=== PATIENT | female | born 1965 | race Caucasian/White ===

== ENCOUNTER 2017-06-27 11:31 | Observation (INO) | payer MEDICARE ==
[~2017-06-27] VITALS: Ht 162.6 cm; Wt 79.9 kg
[~2017-06-27 11:31] MED LIST: AMBIEN10 MG PO; AMBIEN5 MG PO; AMLODIPINE BESY10 MG PO; ASPIR 8181 MG; ASPIRIN ENTERI325 MG PO; CLONAZEPAM1 MG PO; CLONIDINE HCL0.2 MG PO; COGENTIN1 MG/1 ML PO; DOXEPIN HCL25 MG PO; FLOMAX0.4 MG PO; HYDROCHLOROTHIA25 MG PO; IBUPROFEN200 MG PO; LEVAQUIN500 MG PO; LEVOTHYROXINE100 MC1 PO; LEVOTHYROXINE100 MCG PO; LIPITOR20 MG PO; LISINOPRIL10 MG PO; MACROBID 100 M100 MG PO; MELOXICAM7.5 MG PO; MOBIC7.5 MG PO; NORCO 10-325 T1 EACH PO; NORCO 10MG-325MG1 EA PO; OMEPRAZOLE40 MG PO; OXCARBAZEPINE150 MG PO; OXCARBAZEPINE300 MG PO; PERI-COLACE TA1 EACH PO; PHENERGAN25 MG/1 M1 PO; POTASSIUM CHLO20 ME1 PO; PREVACID15 M1 PO; PROMETHAZINE HC25 M1 PO; QUETIAPINE FUM100 MG PO; SEROQUEL25 MG PO; SERTRALINE HCL100 MG PO; TEMAZEPAM30 MG PO; TOPROL XL50 MG PO; TYLENOL # 31 EA; TYLENOL # 31 EA PO; TYLENOL WITH C1 EACH PO; ULTRAM 50MG50 MG PO; ULTRAM50 MG PO; ZOFRAN ODT4 MG PO; ZOLOFT100 MG PO
--- OUTSIDE RECORDS SUMMARY | 2017-06-27 11:34 | XMS REPORT ---
Author Author [facility] Address Unknown Phone Unavailable Care Team Providers Care Sql Server Developer Name Role Phone LAURA SHEPHERD Unavailable Unavailable Problems This patient has no known problems. Allergies, Adverse Reactions, Alerts This patient has no known allergies or adverse reactions. Medications This patient has no known medications. Results Test Description Test Time Test Comments Text Results Atomic Results Result Comments CT CHEST W [place] [address] Patient Name: RYLAND BRUMFIELD MR #: [id number] : 1965 Age/Sex: 52/F Req #: [id number] [facility] Physician: Ordered by: LAUAR SHEPHERD MD Report #: [id number] Location: ER Room/Bed: Procedure: [id number] CT/CT CHEST W Exam Date: 05/07/17 Exam Time: 1615 REPORT STATUS: Signed PROCEDURE: CT CHEST WITH CONTRAST COMPARISON: None. INDICATIONS: Chest pain TECHNIQUE: Pulmonary artery angiogram protocol CT chest after administration of 70 mL Isovue-370 intravenous contrast. Multiplanar reformatted images. DLP: 538.25 FINDINGS: Lungs : Trace dependent right lower lobe interstitial scar or subsegmental atelectasis. Trace bilateral interlobular septal thickening. 7 mm right lower lobe granuloma. Airways: Normal. Pleura: Normal. Lymph nodes: Normal Pulmonary arteries: No filling defects. Normal size. Pulmonary diameter 2.6 cm. Thoracic aorta and great vessels: Normal caliber. Heart and pericardium: 4 chamber cardiomegaly. 2-lead pacemaker of the left hemithorax extending to the right atrial appendage and ventricle. Subdiaphragmatic organs: Grossly unremarkable Skeleton: Intact. Soft tissues : Normal CONCLUSION: 1. No pulmonary embolism. 2. Cardiomegaly. Trace bilateral interstitial thickening suspicious for early pulmonary edema. Dictated by: Radames Corcoran M.D. on 05/07/2017 at 16:41 Electronically approved by: Radames Corcoran M.D. on 05/07/2017 at 16 :41 Dictated By: RADAMES CORCORAN MD 40 Transcribed By: TORRI on 05/07/171640 COPY TO: LAURA SHEPHERD MD CHEST SINGLE (PORTABLE) [place] [address] Patient Name: RYLAND BRUMFIELD MR #: [id number] : 1965 Age/Sex: 52/F Req #: [id number] Adm Physician: Ordered by: LAURA SHEPHERD MD Report #: [id number] Location: ER Room/Bed: Procedure: [id number] DX/CHEST SINGLE (PORTABLE) Exam Date: 05/07/17 Exam Time: 1425 REPORT STATUS: Signed PROCEDURE: CHEST SINGLE (PORTABLE) TECHNIQUE: Portable AP chest INDICATION: Left- sided chest pain COMPARISON: [facility], DX, CHEST 2 VIEWS, , 12:25. FINDINGS: Lungs are clear and symmetrically inflated. No pleural effusions. Upper limits of normal heart size for technique. 2-lead pacemaker of the left hemithorax; leads intact. Intact skeleton. CONCLUSION: No acute abnormality or interval change from October 2016. Dictated by: Radames Corcoran M.D. on 05/07/2017 at 14:41 Electronically approved by: Radames Corcoran M.D. on 2016 at 14:41 Dictated By: RADAMES CORCORAN MD 144 Transcribed By: TORRI on 144 COPY TO: LAURA SHEPHERD MD
[2017-06-27] MEDS ORDERED: ASPIRIN 81 MG CHEW TAB PO ONE ×2 (12:00→17:00)
[2017-06-27] MEDS ORDERED: HYDROCODONE/APAP 7.5MG-325MG 1 EA TAB PO PRN (12:00)
--- NOTE | 2017-06-27 12:46 | Diagnostic Imaging Report ---
PROCEDURE: X-RAY LUMBAR SPINE, TWO VIEWS COMPARISON: Abdominal CT 11/15/2016 INDICATIONS: FALL, BACK PAIN FINDINGS: The lumbar spine is in anatomic alignment without evidence of fracture, spondylolisthesis, or spondylolysis. Vertebral body heights are maintained. Mild disc space narrowing at L2-L3 The paraspinal soft tissues are normal. Multiple surgical clips in the pelvis. A punctate calcification overlying the right upper quadrant may correspond to a right lower lobe calcified granuloma CT 11/15/2016. CONCLUSION: No acute osseous abnormalities. Dictated by: Alfonso Wallace M.D. on 06/27/2017 at 12:56 Electronically approved by: Alfonso Wallace M.D. on 06/27/2017 at 12:56
--- NOTE | 2017-06-27 12:49 | Diagnostic Imaging Report ---
PROCEDURE:X-RAY PELVIS, AP VIEW COMPARISON:Abdominal CT 11/15/2016 INDICATIONS:FALL, HIP AND LOWER BACK PAIN FINDINGS: There are no acute displaced fractures, dislocations, lytic or blastic lesions. Mild degenerative changes of both hips. The bones are well-mineralized. Surgical clips in the pelvis. The soft-tissues are unremarkable. CONCLUSION: No acute radiographic abnormalities. Dictated by: Alfonso Wallace M.D. on 06/27/2017 at 12:58 Electronically approved by: Alfonso Wallace M.D. on 06/27/2017 at 12:58
--- NOTE | 2017-06-27 12:51 | Diagnostic Imaging Report ---
PROCEDURE:CHEST SINGLE (PORTABLE) TECHNIQUE:Portable AP chest INDICATION:Fall; chest pain; hypertension and dizziness. COMPARISON:None. FINDINGS: Lungs are clear. No pleural effusions. Normal heart size, mediastinal contour and pulmonary vasculature. Intact skeleton. 2-lead pacemaker left hemithorax; leads intact. CONCLUSION: No acute abnormality. Dictated by: Dio Corcoran M.D. on 06/27/2017 at 13:00 Electronically approved by: Dio Corcoran M.D. on 06/27/2017 at 13:00
[2017-06-27 12:52] LABS: BILIRUBIN,URINE NEGATIVE (NEGATIVE); CLARITY,URINE CLEAR (CLEAR); COLOR,URINE YELLOW (YELLOW); KETONES,URINE NEGATIVE (NEGATIVE); LEUKOCYTE ESTERASE ,URINE TRACE (NEGATIVE); NITRITE,URINE NEGATIVE (NEGATIVE); PROTEIN,URINE DIPSTICK NEGATIVE (NEGATIVE); URINE UROBILINOGEN 0.2 mg/dL (0.2 - 1)
[2017-06-27 13:12] LABS: BACTERIA,URINE MODERATE /HPF; EPITHELIAL CELLS,URINE FEW /LPF
[2017-06-27 14:01] LABS: BASOPHILS % 0.3 % (0.0-1.0); EOSINOPHILS # (AUTO) 0.2 (0.0-0.4); EOSINOPHILS % 1.5 % (0.0-6.0); HEMATOCRIT 41.2 % (34.2-44.1); HEMOGLOBIN 13.9 g/dL (12.0-16.0); LYMPHOCYTES # (AUTO) 2.3 (1.0-3.2); MEAN CORPUSCULAR HGB CONC 33.7 g/dL (31-35); MONOCYTES # (AUTO) 0.3 (0.2-0.8); MONOCYTES % 2.3 % (4.4-11.3); NEUTROPHILS # (AUTO) 8.8 (2.1-6.9); NEUTROPHILS % 75.6 % (38.7-80.0); PLATELET COUNT 288 x10e3/uL (140-360); RED BLOOD COUNT 4.48 x10e6/uL (3.6-5.1); RED CELL DISTRIBUTION WIDTH 13.7 % (11.7-14.4)
[2017-06-27 14:13] LABS: INR 0.89; PROTHROMBIN TIME 12.5 seconds (11.9-14.5)
[2017-06-27 14:14] LABS: PARTIAL THROMBOPLASTIN TIME 31.5 seconds (23.8-35.5)
[2017-06-27 14:23] LABS: ALANINE AMINOTRANSFERASE 10 IU/L (0-55); ALKALINE PHOSPHATASE 119 IU/L (40-150); ANION GAP 13.1 mmol/L (8-16); BLOOD UREA NITROGEN 14 mg/dL (7-26); BUN/CREATININE RATIO 15 (6-25); CALCIUM 9.4 mg/dL (8.4-10.2); CARBON DIOXIDE 26 mmol/L (22-29); CHLORIDE 105 mmol/L (98-107); CREATINE KINASE 54 IU/L (29-168); CREATININE, SERUM 0.92 mg/dL (0.57-1.11); EST GLOMERULAR FILTRATION RATE > 60 ML/MIN (60-); GLUCOSE 97 mg/dL (74-118); POTASSIUM 3.1 mmol/L (3.5-5.1); SODIUM 141 mmol/L (136-145)
[2017-06-27] MEDS ORDERED: MORPHINE SULFATE 2 MG/ML SYR IV STA (15:37)
[2017-06-27] MEDS ORDERED: NITROGLYCERIN 0.4 MG SUBL SL PRN (17:00)
[2017-06-27] MEDS: MORPHINE SULFATE 2 MG/ML SYR IV PRN ×2 (17:56→21:00)
[2017-06-27] MEDS: FAMOTIDINE 20 MG/2 ML VIAL IV SCH ×2 (17:57→20:43)
[2017-06-27] MEDS ORDERED: POTASSIUM CHLORIDE 20 MEQ TAB CR PO STA (18:13)
[2017-06-27 20:52] VITALS: BP 142/90
[2017-06-27 21:12] VITALS: BP 142/90
[2017-06-27 21:27] LABS: CREATINE KINASE MB 0.8 ng/mL (0.00-5.00)
[2017-06-27 21:36] VITALS: BP 142/90
[2017-06-28] VITALS (10 sets, daily range): BP systolic 128–185; BP diastolic 65–121
[2017-06-28] MEDS: MORPHINE SULFATE 2 MG/ML SYR IV PRN ×6 (00:06→18:27)
--- NOTE | 2017-06-28 02:11 | Consultation ---
DATE OF CONSULTATION: June 27, 2017 CARDIOLOGY CONSULTATION REASON FOR CONSULTATION: Lightheadedness. HISTORY OF PRESENT ILLNESS: This is a 52-year-old woman with a history of hypertension, hyperlipidemia, atrial fibrillation, status post permanent pacemaker placement, who presented with complaints of chest pain and lightheadedness. She reports that she began having chest pain early this morning. The pain was described as a vice-like sensation that was 7/10 in severity associated with shortness of breath, nausea and palpitations. The pain lasted hours. There was no radiation. She denied any edema, orthopnea or PND. On admission this morning, she states that she was walking down the stairs and she began to feel lightheaded with a fluttering sensation in her chest. She subsequently fell down the stairs. She denies any change in her oral intake, although she does endorse she had a bad episode of diarrhea a few days prior. REVIEW OF SYSTEMS: Negative except as per HPI. PAST MEDICAL HISTORY: Hypertension, hyperlipidemia, atrial fibrillation with permanent pacemaker placement, [employer], kidney stones. PAST SURGICAL HISTORY: Hysterectomy, right ureter reconstruction, appendectomy, right ankle surgery, adenoidectomy. ALLERGIES: PLEASE SEE MAR. MEDICATIONS: See medication list. SOCIAL HISTORY: Prior smoker. No alcohol or illicit drugs. FAMILY HISTORY: Noncontributory. PHYSICAL EXAMINATION VITALS: Temperature 98.2 degrees, pulse 64, respiratory rate 18, blood pressure 125/87, and oxygen saturation 99% on room air. GENERAL: This is a well-developed, well-nourished woman in no acute distress. HEENT: Normocephalic and atraumatic. NECK: Supple. No thyromegaly or cervical lymphadenopathy. No carotid bruits. LUNGS: Clear to auscultation bilaterally. No wheezes or crackles. CARDIOVASCULAR: Normal rate and regular rhythm. Systolic murmur. Normal S1 and S2. ABDOMEN: Soft and nontender. EXTREMITIES: No edema. NEURO: Nonfocal exam. LABS: WBC 11.67, hemoglobin 13.9, hematocrit 41.2, and platelets 288,000. Sodium 141, potassium 3.1, chloride 105, CO2 26, BUN 14, creatinine 0.92. Troponin 0.001. BNP 26.3. Chest x-ray with no acute abnormality. X-ray of the pelvis with no acute radiographic abnormality. Lumbar spine with no acute osseous abnormalities. EKG is normal sinus rhythm with S/T and T-wave abnormalities. Consider inferolateral ischemia. IMPRESSION 1. Chest pain. 2. Lightheadedness. 3. Sick sinus syndrome, status post permanent pacemaker. 4. History of atrial fibrillation. 5. Hypertension. 6. Hyperlipidemia. 7. Hypothyroidism. 8. Bipolar disorder. RECOMMENDATIONS: Trend cardiac enzymes. Check orthostatic vitals. We will have the pacemaker interrogated. Patient was seen in the office 2 weeks ago, and complained of chest pain at that time. However, due to the weather she was unable to make it for stress test. Given fall, we will plan for a nuclear stress test in the morning. Get device interrogated. Thank you for this consult. We will continue to follow. Job#: [id number] CHUY
--- NOTE | 2017-06-28 02:26 | Consultation ---
DATE OF CONSULTATION: June 27, 2017 No dictation, length 00:21. Job#: [id number] JONAS
[2017-06-28] MEDS: FAMOTIDINE 20 MG/2 ML VIAL IV SCH ×2 (04:30→16:11)
[2017-06-28] MEDS ORDERED: DILTIAZEM 24HR120 M1 (04:43)
[2017-06-28] MEDS ORDERED: FUROSEMIDE40 MG PO (04:43)
[2017-06-28 07:09] LABS: CHOL/HDL RATIO 7.8 (3.0-3.6); CHOLESTEROL 243 MD/DL (0-199); CREATINE KINASE 42 IU/L (29-168); HDL CHOLESTEROL 31 MG/DL (40-60); LDL CHOLESTEROL 169 MG/DL (60-130); TRIGLYCERIDES 216 MG/DL (0-149)
[2017-06-28] MEDS: ASPIRIN 325 MG TAB EC PO SCH (08:09)
[2017-06-28] MEDS ORDERED: REGADENOSON 0.4 MG/5 ML SYR IV ONE (12:01)
--- NOTE | 2017-06-28 12:53 | Progress Note ---
DATE: June 28, 2017 CARDIOLOGY PROGRESS NOTE SUBJECTIVE: Patient reports she had an episode of chest pain earlier today. Denies shortness of breath. She was seen for a nuclear stress test. OBJECTIVE VITALS: Temperature 97.6 degrees, pulse 79, respiratory rate 18, blood pressure 185/117, and oxygen saturation 96% on room air. GENERAL: Awake, alert, in no acute distress. LUNGS: Clear to auscultation bilaterally. No wheezes or crackles. CARDIOVASCULAR: Normal rate and regular rhythm. Systolic murmur. Normal S1 and S2. ABDOMEN: Soft and nontender. EXTREMITIES: No edema. CARDIAC MEDICATIONS: Aspirin 325 mg p.o. daily. TELEMETRY: Normal sinus rhythm. LABS: Troponin less than 0.001. Cholesterol 243, triglycerides 216, LDL 169, HDL 31. IMPRESSION 1. Chest pain. 2. Lightheadedness. 3. Sick sinus syndrome, status post permanent pacemaker placement. 4. History of atrial fibrillation. 5. Hypertension. 6. Hyperlipidemia. 7. Hypothyroidism. 8. Bipolar disorder. RECOMMENDATIONS: The patient has ruled out for myocardial infarction. Orthostatic vitals were negative. Awaiting pacemaker interrogation. Further recommendations pending stress test results. Thank you for this consult. We will continue to follow. Job#: [id number]
[2017-06-28] MEDS ORDERED: ONDANSETRON HCL INJ 2 MG/ML VIAL ONE (13:40)
[2017-06-28] MEDS: CLONIDINE HCL 0.2 MG TAB PO SCH ×2 (15:26→20:46)
[2017-06-28] MEDS: METOCLOPRAMIDE HCL 10 MG TAB PO SCH ×2 (18:27→20:46)
[2017-06-28] MEDS: CLONAZEPAM 1 MG TAB PO SCH (18:27)
[2017-06-28] MEDS: PANTOPRAZOLE SOD 40 MG TABEC PO SCH (18:27)
--- NOTE | 2017-06-28 19:23 | Cardiology Report ---
DATE OF STUDY: June 28, 2017 PROCEDURE TITLE Rest stress single isotope SPECT imaging with pharmacologic stress and gated SPECT imaging. INDICATIONS: Chest pain. PROCEDURE: Formal cardiac stress testing was performed with regadenoson per protocol. The heart rate was 66 beats per minute at baseline and increased to 154 beats per minute during the regadenoson infusion. The rest blood pressure was 172/111 and decreased to 163/102 mmHg which is a normal response. The patient did not develop any significant cardiac symptoms, although she did have significant nausea. The resting electrocardiogram demonstrated normal sinus rhythm with nonspecific ST abnormalities. There were [address] segment depressions in 2, 3, AVF, V4, V5 and V6. Myocardial perfusion imaging was performed at rest following the injection of 10.6 mCi of tetrofosmin. At peak pharmacologic effect, the patient was injected with 31.2 mCi of tetrofosmin. Gated post stress tomographic imaging was performed. FINDINGS: Overall quality of this study is fair. Attenuation artifact was absent. Left ventricular cavity is noted to be normal size on the rest and stress studies. SPECT images demonstrate homogenous tracer distribution throughout the myocardium. Gated SPECT imaging revealed normal myocardial thickening and wall motion. Left ventricular ejection fraction was calculated to be 64%. IMPRESSION: Myocardial perfusion imaging is normal. Overall left ventricular systolic motion was normal without regional wall motion abnormalities. Job#: [id number] GH
--- NOTE | 2017-06-28 19:48 | History and Physical ---
PRIMARY CARE PROVIDER: Dr. Deondre Meehan. CHIEF COMPLAINT: Chest pain. HISTORY OF PRESENT ILLNESS: Ms. Stiles is a 52-year-old lady complaining of anterior chest pain. It is more positional and pleuritic in nature. Has been going on for 24 hours or so. REVIEW OF SYSTEMS: She denies fever, chills or weight loss. Denies sinus congestion or sore throat. She has atypical chest pain as noted without diaphoresis. She denies shortness of breath, wheezing or cough. She denies abdominal pain, nausea, vomiting or melena. Denies dysuria or flank pain. She denies rash or pruritus. Denies joint pain or swelling. She denies bleeding or bruising. She denies headache, vertigo or loss of consciousness. She denies depression, agitation, homicidal or suicidal ideation. PAST MEDICAL HISTORY: Significant for longstanding hypertension. She has had paroxysmal atrial fibrillation and sick sinus syndrome in the past and has a permanent pacemaker placed about a year ago. She has hyperlipidemia and history of hepatitis C. She has hypothyroidism and bipolar disorder. REGULAR MEDICATIONS: Metoprolol XL 200 mg daily. Lasix 40 mg daily. Diltiazem 120 mg daily. Clonidine 0.2 mg 3 times a day. Clonazepam 1 mg twice a day. Lipitor 10 mg at bedtime. Temazepam 30 mg at bedtime. Zoloft 100 mg daily. Omeprazole 40 mg q.a.m. Levothyroxine 100 mcg daily. Aspirin 325 mg daily. PAST SURGICAL HISTORY: She has a history of hysterectomy. She has had reimplanting of the right ureter. She has a history of kidney stones. She had an appendectomy and she had a pacemaker placement, and she has also had open reduction and internal fixation of right ankle. FAMILY HISTORY: Remarkable for hypertension. SOCIAL HISTORY: The patient is . Malay is her primary language. She does not smoke, drink or use illegal drugs. She is generally independently functioning. PHYSICAL EXAM: PSYCHIATRIC: She is alert and oriented times 3 with normal mood and affect. CONSTITUTIONAL: She has a normal body habitus. Is in no acute distress. VITAL SIGNS: Blood pressure 167/99. Pulse 83 and regular. Respiratory rate 20. O2 sat 96%. Temperature 98.6. HEENT: Head is atraumatic. Eyes are anicteric with clear conjunctivae. Ears and nares are without erythema or discharge. Oropharynx is clear. NECK: Is supple with no mass or thyromegaly. LYMPHATIC SYSTEM: She has no palpable cervical, axillary or inguinal adenopathy. CARDIOVASCULAR: Her heart has a regular rate and rhythm without murmur or extra heart sounds. No carotid bruit. She has no peripheral edema. Has palpable dorsal pedal pulses. RESPIRATORY: Lungs are clear to auscultation and percussion with normal respiratory effort. GASTROINTESTINAL: Abdomen is soft without organomegaly, masses or tenderness. She has normal bowel sounds present. CUTANEOUS: Her skin is warm and dry to touch with no rash or skin breakdown. MUSCULOSKELETAL: Joints are normal alignment without erythema or swelling. No calf tenderness. NEUROLOGIC: Exam is nonfocal with intact cranial nerves and no motor or sensory deficits. DIAGNOSTIC STUDIES: Chest x-ray shows no acute disease. Pelvis x-ray no acute disease. Lumbar spine shows no acute disease. EKG shows normal sinus rhythm with some inferolateral T wave changes that are nonspecific. Her BNP is 26.3. Troponin is less than 0.001, less than 0.001 then less than 0.001. Cholesterol 243. Triglycerides 216. HDL 31. LDL 169. Chemistry shows normal electrolytes except potassium 3.1. CO2 26. Creatinine 0.92. BUN 14. Glucose 97. Transaminases, bilirubin and alk phos are normal. CBC shows a white count 11.6 with 76% neutrophils, 20% lymphocytes, 2% monocytes. Hemoglobin 13.9, hematocrit 41.2 and platelet count 288,000. Coags are normal. IMPRESSION AND PLAN 1. Chest pain, rule out acute coronary syndrome. Myocardial infarction has been ruled out with serial cardiac enzymes that are negative times 3. The patient had a stress test today and the results are pending. 2. History of paroxysmal atrial fibrillation. The patient appears to be in sinus rhythm at the moment on her EKG. Her pacemaker will be interrogated to determine if she has been having any arrhythmias. Will defer the use of anticoagulation to cardiology. 3. Bipolar disorder. Will continue her clonidine and Zoloft. 4. For prophylaxis the patient will be on Protonix and Reglan for GI prophylaxis and gastroesophageal reflux disease for which she suffers a lot and she is on SCDs for DVT prophylaxis. Job#: [id number]
[2017-06-28] MEDS ORDERED: ATORVASTATIN 10 MG TAB PO SCH (21:00)
[2017-06-29] VITALS: BP 97/58
[2017-06-29] MEDS: MORPHINE SULFATE 2 MG/ML SYR IV PRN ×4 (00:10→14:11)
[2017-06-29 06:34] LABS: BASOPHILS % 0.4 % (0.0-1.0); EOSINOPHILS # (AUTO) 0.2 (0.0-0.4); EOSINOPHILS % 1.5 % (0.0-6.0); HEMATOCRIT 39.2 % (34.2-44.1); HEMOGLOBIN 12.8 g/dL (12.0-16.0); LYMPHOCYTES # (AUTO) 4.8 (1.0-3.2); LYMPHOCYTES % 42.7 % (18.0-39.1); MEAN CORPUSCULAR HEMOGLOBIN 30.6 pg (28-32); MEAN CORPUSCULAR HGB CONC 32.7 g/dL (31-35); MEAN CORPUSCULAR VOLUME 93.8 fL (81-99); MONOCYTES # (AUTO) 0.7 (0.2-0.8); MONOCYTES % 6.6 % (4.4-11.3); NEUTROPHILS # (AUTO) 5.5 (2.1-6.9); NEUTROPHILS % 48.5 % (38.7-80.0); PLATELET COUNT 296 x10e3/uL (140-360); RED BLOOD COUNT 4.18 x10e6/uL (3.6-5.1)
[2017-06-29 06:50] LABS: BLOOD UREA NITROGEN 11 mg/dL (7-26); BUN/CREATININE RATIO 13 (6-25); CALCIUM 9.1 mg/dL (8.4-10.2); CARBON DIOXIDE 29 mmol/L (22-29); CHLORIDE 106 mmol/L (98-107); CREATININE, SERUM 0.86 mg/dL (0.57-1.11); EST GLOMERULAR FILTRATION RATE > 60 ML/MIN (60-); GLUCOSE 91 mg/dL (74-118); MAGNESIUM 1.9 MG/DL (1.3-2.1); SODIUM 143 mmol/L (136-145)
[2017-06-29 07:12] LABS: THYROID STIMULATING HORMONE 4.871 uIU/mL (0.350-4.940)
[2017-06-29] MEDS ORDERED: LEVOTHYROXINE SODIUM 100 MCG TAB PO SCH (07:30)
[2017-06-29 08:01] VITALS: BP 97/58
[2017-06-29 08:33] VITALS: BP 96/57
[2017-06-29] MEDS: METOCLOPRAMIDE HCL 10 MG TAB PO SCH ×2 (08:52→11:55)
[2017-06-29] MEDS: PANTOPRAZOLE SOD 40 MG TABEC PO SCH (08:52)
[2017-06-29] MEDS: ASPIRIN 325 MG TAB EC PO SCH (08:53)
[2017-06-29] MEDS: CLONIDINE HCL 0.2 MG TAB PO SCH (08:53)
[2017-06-29] MEDS: METOPROLOL SUCCINATE 50 MG TAB XL PO SCH ×2 (08:54→11:07)
[2017-06-29] MEDS: CLONAZEPAM 1 MG TAB PO SCH ×2 (08:54→09:00)
[2017-06-29] MEDS ORDERED: SERTRALINE HCL 100 MG TAB PO SCH (09:00)
[2017-06-29] MEDS ORDERED: AMIODARONE HCL 200 MG TAB PO SCH (09:00)
[2017-06-29] MEDS ORDERED: FUROSEMIDE 40 MG TAB PO SCH (09:00)
[2017-06-29] MEDS ORDERED: DILTIAZEM HCL 120 MG CAP CD PO SCH (09:00)
[2017-06-29] MEDS ORDERED: XARELTO10 MG PO (10:23)
[2017-06-29] MEDS ORDERED: AMIODARONE HCL200 MG PO (10:23)
[2017-06-29] MEDS ORDERED: METOCLOPRAMIDE10 MG PO (10:23)
[2017-06-29] MEDS ORDERED: CYCLOBENZAPRINE5 MG PO (10:28)
[2017-06-29] MEDS ORDERED: METOPROLOL TARTRATE INJ 1 MG/ML VIAL IV ONE (11:15)
[2017-06-29 11:53] VITALS: BP 112/74
--- NOTE | 2017-06-29 15:52 | Progress Note ---
DATE: June 29, 2017 CARDIOLOGY PROGRESS NOTE SUBJECTIVE: Patient denies chest pain or shortness of breath. She reports she had palpitations earlier today. OBJECTIVE VITALS: Temperature 99.5 degrees, pulse 115, respiratory rate 16, blood pressure 112/74, and oxygen saturation 95%. GENERAL: Awake, alert, in no acute distress. LUNGS: Clear to auscultation bilaterally. No wheezes or crackles. CARDIOVASCULAR: Normal rate, regular rhythm. Systolic murmur. Normal S1, S2. ABDOMEN: Soft and nontender. EXTREMITIES: No edema. CARDIAC MEDICATIONS 1. Metoprolol succinate 200 mg p.o. daily. 2. Diltiazem 120 mg p.o. daily. 3. Amiodarone 200 mg p.o. b.i.d. 4. Furosemide 40 mg p.o. daily. 5. Aspirin 325 mg p.o. q.a.m. 6. Levothyroxine 100 mcg p.o. daily. 7. Atorvastatin 10 mg p.o. q.h.s. 8. Rivaroxaban 20 mg p.o. daily. LABORATORY DATA: WBC 11.23, hemoglobin 12.8, hematocrit 39.2, platelets 296. Sodium 143, potassium 4, chloride 106, CO2 of 29, BUN 11, and creatinine 0.86. TELEMETRY: Initially normal sinus rhythm, later was notified of AFib with RVR. IMPRESSION 1. Chest pain. 2. Atrial fibrillation with rapid ventricular response. 3. Status post fall. 4. Sick sinus syndrome, status post permanent pacemaker placement. 5. Hypertension. 6. Hyperlipidemia. 7. Hypothyroidism. 8. Bipolar disorder. RECOMMENDATIONS: Patient ruled out for myocardial infarction. Nuclear stress test was without evidence of ischemia. Pacemaker interrogation revealed episodes of atrial fibrillation as well as supraventricular tachycardia. Patient has therefore been started on amiodarone for rhythm control. Patient has an indication for Xarelto given her atrial fibrillation, hypertension, and gender; however, given that she reports she is falling a fair amount, she is high risk for anticoagulation. Hold off Xarelto for now. We will have the patient re-discuss anticoagulation with us in the office. Give additional metoprolol. Patient can be discharged home once her rate is controlled. Thank you for this consult. We will continue to follow. Job#: [id number] BONITA
[2017-06-29] MEDS ORDERED: RIVAROXABAN 20 MG TABLET PO SCH (17:00)
--- NOTE | 2017-07-02 08:49 | Discharge Summary ---
ADMISSION DIAGNOSES 1. Chest pain. 2. Paroxysmal atrial fibrillation. 3. Bipolar. DISCHARGE DIAGNOSES 1. Chest pain. 2. Paroxysmal atrial fibrillation. 3. Bipolar. 4. Rule out myocardial infarction. HISTORY: The patient has a history of hypertension, paroxysmal atrial fibrillation, sick sinus syndrome with a permanent pacer about a year ago, hyperlipidemia and history of hepatitis C, hypothyroidism and bipolar. HOSPITAL COURSE: A 52-year-old female complaining of chest pain, more positional and pleuritic in pain. The pain has lasted about 24 hours. On admission, cardiac enzymes were negative x3. Stress test done which was also negative and her pacer has been interrogated. Per cardiology, there were no abnormalities during the time when the patient was having the pain, so they are okay to discharge her home. She said she fell when she was having the chest pain, so x-rays were done. Pelvic x-ray was negative. Lumbar x-ray negative. Chest x-ray negative. Urine culture negative x 48 hours. EKG was normal sinus and per die trimmer the patient was running sinus rhythm with occasional PACs at the time of discharge. The patient was sent home and will follow up with cardiology. She was sent with amiodarone, Flexeril x10 days, Reglan and Xarelto. Cardiology will speak to the patient about risks versus benefit of Xarelto and fall history and will decide whether to keep the patient on that. Dictated by: Ira Phipps NP WINDY SAXENA MD Job#: [id number]
== END 2017-06-29 15:05 | disposition home or self-care (01) ==
LOC: ER 11:31 → ERHOLD 17:02 → IMCU 18:25
PROVIDERS: ADMIT Internal Medicine; ATTEND Internal Medicine
DX: R07.89 Other chest pain (principal); I48.0 Paroxysmal atrial fibrillation; Z95.0 Presence of cardiac pacemaker; F31.9 Bipolar disorder, unspecified; I10 Essential (primary) hypertension; E78.5 Hyperlipidemia, unspecified; I49.5 Sick sinus syndrome; E03.9 Hypothyroidism, unspecified; R42 Dizziness and giddiness; B19.20 Unspecified viral hepatitis C without hepatic coma; Z91.81 History of falling; W18.39XA Other fall on same level, initial encounter; Y93.9 Activity, unspecified; Y92.230 Patient room in hospital as the place of occurrence of the external cause
CPT/HCPCS: 36415 ×3; 71045; 72100; 72170; 78452; 80048; 80053; 80061; 81001; 82550 ×2; 82553 ×2; 83735; 83880; 84443; 84484 ×2; 85025 ×2; 85610; 85730; 87086; 93005; 93017; 99284; A9502; G0378 ×3; J2270 ×3; J2405

== ENCOUNTER 2017-08-03 17:53 | Emergency (ER) | payer MEDICARE ==
[~2017-08-03] VITALS: Ht 162.6 cm; Wt 79.8 kg
[~2017-08-03 17:53] MED LIST changes: +AMIODARONE HCL200 MG PO; +CYCLOBENZAPRINE5 MG PO; +DILTIAZEM 24HR120 M1; +FUROSEMIDE40 MG PO; +METOCLOPRAMIDE10 MG PO; +XARELTO10 MG PO
--- OUTSIDE RECORDS SUMMARY | 2017-08-03 17:57 | XMS REPORT | Continuity of Care Document ---
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 No 06/27/17 8:47pm If yes, is advance directive on file with [facility]? No 06/27/17 8:47pm If not on file with [facility] will patient provide a copy? Yes 06/27/17 8:47pm Do you have a Directive to Physician? No 06/27/17 12:53pm Do you have a Medical Power of Process Development Engineer? No 06/27/17 12:53pm Do you have an out of hospital Do Not Resuscitate Order? No 06/27/17 12:53pm Do you have any special needs we should be aware of? No 06/27/17 12:53pm Do you have a support person here with you today? Yes 06/27/17 12:53pm Did patient receive Notice of Privacy Practices? Yes 06/27/17 12:53pm Did patient receive patient rights and responsibilities? Yes 06/27/17 12:53pm Problems Medical Problem Onset Date Status Abdominal pain 05/13/2015 Acute Bradycardia 10/26/2015 Acute Chest pain Unknown Contusion of head 02/09/2016 Acute Contusion of left shoulder 02/09/2016 Acute Fever 09/03/2015 Acute Hepatic steatosis Unknown Acute Hypokalemia 05/13/2015 Acute Hypokalemia Unknown Leukocytosis Unknown Obstructive uropathy 10/02/2014 Acute Obstructive uropathy 10/11/2014 Acute Orthostatic dizziness 02/09/2016 Acute Pyelonephritis 10/02/2014 Acute Pyelonephritis 09/03/2015 Acute Renal colic 10/11/2014 Acute UTI (lower urinary tract infection) 10/11/2014 Acute UTI (urinary tract infection) 10/26/2015 Acute Ureterolithiasis 10/02/2014 Acute Vomiting Unknown Medications Current Home Medications Medication Dose Units Route Directions Days Qty Instructions Start Date Amiodarone Hcl 200 Mg Tablet 200 Mg Oral Twice A Day 30 Days Aspirin (Aspirin Enteric Coated) 325 Mg Tabec 325 Mg Oral Daily 30 Tab Atorvastatin Calcium (Lipitor) 20 Mg Tablet 10 Mg Oral Daily 30 Tab Clonazepam 1 Mg Tablet 1 Mg Oral Twice A Day Clonidine Hcl 0.2 Mg Tablet 1 Tab Oral Three Times A Day Cyclobenzaprine Hcl (Flexeril) 5 Mg Tablet 5 Mg Oral Every 8 Hours as needed for Pain 10 Days 06/29/17 Diltiazem Hcl (Diltiazem 24HR Cd) 120 Mg Cap.er.24h Daily Furosemide 40 Mg Tablet 40 Mg Oral Daily 30 Tab Levothyroxine Sodium 100 Mcg Vial 100 Mcg Oral Daily Metoclopramide Hcl 10 Mg Tablet 10 Mg Oral Before Meals And At Bedtime 30 Days 06/29/17 Metoprolol Succinate (Toprol Xl) 50 Mg Tab.er.24h 200 Mg Oral Daily 30 Tab Omeprazole 40 Mg Capsule.dr 40 Mg Oral Daily Rivaroxaban (Xarelto) 10 Mg Tablet 20 Mg Oral Daily At 1700 30 Days 06/29/17 Sertraline Hcl (Zoloft) 100 Mg Tablet 100 Mg Oral Daily Temazepam 30 Mg Capsule 30 Mg Oral Bedtime Past Home Medications Medication Directions Ordered Status Acetaminophen With Codeine (Tylenol With Codeine #3 Tablet) 1 Each Tablet, 300 Mg Oral Every 6 Hours as needed for Pain Discontinued Acetaminophen/Codeine Phosphate (Tylenol # 3*) 1 Ea Tab, Discontinued Acetaminophen/Codeine Phosphate (Tylenol # 3*) 1 Ea Tab, 300 Mg Oral Every 6 Hours Discontinued Acetaminophen/Hydrocodone Bitart ([place] 10MG-325MG*) 1 Ea Tab, 1 Tab Oral Every 6 Hours for Pain Discontinued Amlodipine Besylate 10 Mg Tablet, 5 Mg Oral Daily 02/14/16 Discontinued Amlodipine Besylate 10 Mg Tablet, 10 Mg Oral Daily Discontinued Benztropine Mesylate (Cogentin) 1 Mg/1 Ml Amp, 2 Mg Oral Daily Discontinued Clonidine Hcl 0.2 Mg Tablet, 1 Tab Oral Three Times A Day Discontinued Hydrochlorothiazide 25 Mg Tablet, 25 Mg Oral Daily Discontinued Hydrocodone Bit/Acetaminophen ([place] 10-325 Tablet) 1 Each Tablet, Oral Every 4 Hours for Pain Discontinued Ibuprofen 200 Mg Capsule, 800 Mg Oral Discontinued Levofloxacin (Levaquin) 500 Mg Tablet, 500 Mg Oral Daily Discontinued Levofloxacin (Levaquin) 500 Mg Tablet, 500 Mg Oral Daily Discontinued Lisinopril 10 Mg Tablet, 40 Mg Oral Daily Discontinued Meloxicam 7.5 Mg Tablet, 15 Mg Oral Daily Discontinued Meloxicam (Mobic*) 7.5 Mg Tablet, 7.5 Mg Oral Twice A Day as needed for Pain Discontinued Nitrofurantoin Monohyd/M-Cryst (Macrobid 100 Mg Capsule) 100 Mg Capsule, 100 Mg Oral Twice A Day Discontinued Ondansetron (Zofran Odt) 4 Mg Tab.rapdis, 4 Mg Oral Every 4 Hours as needed for Nausea Discontinued Oxcarbazepine 300 Mg Tablet, 300 Mg Oral Twice A Day Discontinued Potassium Chloride 20 Meq Tab.er.prt, 20 Meq Oral Daily Discontinued Promethazine Hcl 25 Mg Tablet, 25 Mg Oral Every 6 Hours as needed for Nausea Discontinued Promethazine Hcl (Phenergan) 25 Mg/1 Ml Vial, 25 Mg Oral Every 6 Hours as needed for Nausea Discontinued Quetiapine Fumarate (Seroquel) 25 Mg Tablet, 100 Mg Oral Every Morning Discontinued Quetiapine Fumarate (Seroquel) 25 Mg Tablet, 300 Mg Oral Bedtime Discontinued Sennosides/Docusate Sodium (Martha-Colace Tablet) 1 Each Tablet, 1 Tab Oral Twice A Day Discontinued Tamsulosin Hcl (Flomax*) 0.4 Mg Cap, 0.4 Mg Oral Daily Discontinued Tramadol Hcl (Ultram) 50 Mg Tablet, 50 Mg Oral Every 6 Hours as needed for Pain Discontinued Tramadol Hcl (Ultram 50MG*) 50 Mg Tab, 50 Mg Oral Every 6 Hours as needed for Pain Discontinued Social History Social History Problem Response Recorded Date/Time Onset Date Status Hx Psychiatric Problems Y - BIPOLAR DISORDER 06/27/2017 8:47pm Not Applicable Not Applicable Hx Eating Disorder No 06/27/2017 8:47pm Not Applicable Not Applicable Hx Substance Use Disorder No 06/27/2017 8:47pm Not Applicable Not Applicable Hx Depression Yes 06/27/2017 8:47pm Not Applicable Not Applicable Hx Alcohol Use Y - OCCASIONAL DRINKER 06/27/2017 8:47pm Not Applicable Not Applicable Hx Substance Use Treatment No 06/27/2017 8:47pm Not Applicable Not Applicable Hx Physical Abuse No 06/27/2017 8:47pm Not Applicable Not Applicable Smoking Status Start Date Stop Date Never Smoker Hospital Discharge Instructions No hospital discharge instruction information available. Plan of Care Discharge Date 06/29/17 3:05pm Disposition HOME, SELF-CARE Instructions/Education Provided Chest Pain - Chest Wall Prescriptions See Medication Section Referrals DIETER KERN MD (Cardiology) Order Date: 1-2 Weeks Entered Date: 06/29/2017 10:24am Address: [address] [place] [id number] Additional Instructions/Education CARDIAC DIET Functional Status Query Response Date Recorded Assistive Devices None June 27, 2017 8:52pm Ambulation Ability Standby Assistance June 27, 2017 8:52pm Toileting Ability Standby Assistance June 27, 2017 8:52pm Allergies, Adverse Reactions, Alerts Allergen Type Severity Reaction Status Last Updated Penicillin Allergy Unknown Active 11/15/16 Sulfa (Sulfonamide Antibiotics) Allergy Unknown Active 11/15/16 Cefaclor Allergy Unknown Active 11/15/16 Tetracycline Allergy Unknown Active 11/15/16 Povidone-iodine Allergy Unknown Active 11/15/16 Immunizations No immunization information available. Vital Signs Acute Vital Signs Vital Response Date/Time Temperature (Fahrenheit) 99.5 degrees F (97.6 - 99.5) 06/29/2017 11:53am Pulse Pulse Rate (adult) 115 bpm (60 - 90) 06/29/2017 11:53am Respiratory Rate 16 bpm (12 - 24) 06/29/2017 11:53am Blood Pressure 112/74 mm Hg 06/29/2017 11:53am Height 5 ft 4 in 06/27/2017 11:57am Weight 176.13 lb 06/28/2017 12:33am Body Mass Index 30.2 kg/m^2 06/28/2017 12:33am Results Laboratory Results Test Name Result Units Flags Reference Collection Date/Time Result Date/ Time Comments Differential Total Cells Counted 100 10/10/2016 4:55am 10/10/2016 5 :32am Neutrophils % (Manual) 50 % 40-74 10/10/2016 4:55am 10/10/2016 5:32am Lymphocytes % (Manual) 45 % 19-48 10/10/2016 4:55am 10/10/2016 5:32am Monocytes % (Manual) 4 % 3.4-9.0 10/10/2016 4:55am 10/10/2016 5:32am Basophils % (Manual) 1 % 0-1.5 10/10/2016 4:55am 10/10/2016 5:32am Platelet Estimate ADEQUATE 10/10/2016 4:55am 10/10/2016 5:32am Platelet Morphology Comment FEW LARGE 10/10/2016 4:55am 10/10/2016 5:32am Red Cell Morphology Comment NORMAL 10/10/2016 4:55am 10/10/2016 5: 32am Urine Mucus MODERATE H RARE 11/15/2016 4:10pm 11/15/2016 5:59pm Amylase Level 45 U/L 25-125 11/15/2016 12:04pm 11/15/2016 1:21pm Lipase 15 U/L 8-78 11/15/2016 12:04pm 11/15/2016 1:21pm D-Dimer Quantitative (PE/DVT) 2.34 ug/mLFEU H 0.00-0.45 05/07/2017 1: 00pm 05/07/2017 2:35pm As with all in vitro diagnostic tests, the test results should be interpreted by the physician in conjunction with clinical findings and other test results. Test results are reported in NEW D-dimer units(ug/mLFEU). Urine Opiates Screen NEGATIVE NEGATIVE 05/07/2017 1:00pm 05/07/2017 3 :24pm SIG Urine Barbiturates Screen NEGATIVE NEGATIVE 05/07/2017 1:00pm 2016 3:24pm Urine Phencyclidine Screen NEGATIVE NEGATIVE 05/07/2017 1:00pm 2016 3:24pm Urine Amphetamines Screen NEGATIVE NEGATIVE 05/07/2017 1:00pm 2016 3:24pm Urine Benzodiazepines Screen POSITIVE H NEGATIVE 05/07/2017 1:00pm 03/2017 3:24pm This test provides only a screen. Positive results should be repeated by a confirmatory test. Urine Cocaine Screen NEGATIVE NEGATIVE 05/07/2017 1:00pm 05/07/2017 3 :24pm Urine Cannabinoids Screen NEGATIVE NEGATIVE 05/07/2017 1:00pm 2016 3:24pm THESE RESULTS ARE FOR MEDICAL TREATMENT ONLY *THIS REPORT CONTAINS UNCONFIRMED SCREENING RESULTS* POSITIVE RESULTS WILL BE CONFIRMED BY REFERENCE LAB UPON REQUEST CUT-OFF DRUG CLASS CONCENTRATION ng/mL Amphetamines 1000 Methamphetamines 1000 Cocaine 300 Opiate 300 Phencyclidine 25 Cannabinoid 50 Barbiturates 300 Benzodiazepine 300 Methadone 300 White Blood Count 11.23 x10e3/uL H 4.8-10.8 06/29/2017 6:00am 2017 6:40am Red Blood Count 4.18 x10e6/uL 3.6-5.1 06/29/2017 6:00am 06/29/2017 6: 40am Hemoglobin 12.8 g/dL 12.0-16.0 06/29/2017 6:00am 06/29/2017 6:40am Hematocrit 39.2 % 34.2-44.1 06/29/2017 6:00am 06/29/2017 6:40am Mean Corpuscular Volume 93.8 fL 81-99 06/29/2017 6:00am 06/29/2017 6: 40am Mean Corpuscular Hemoglobin 30.6 pg 28-32 06/29/2017 6:00am 06/29/2017 6:40am Mean Corpuscular Hemoglobin Concent 32.7 g/dL 31-35 06/29/2017 6:00am 06/29/2017 6:40am Red Cell Distribution Width 14.0 % 11.7-14.4 06/29/2017 6:00am 2017 6:40am Platelet Count 296 x10e3/uL 140-360 06/29/2017 6:00am 06/29/2017 6: 40am Neutrophils (%) (Auto) 48.5 % 38.7-80.0 06/29/2017 6:00am 06/29/2017 6: 40am Lymphocytes (%) (Auto) 42.7 % H 18.0-39.1 06/29/2017 6:00am 06/29/2017 6 :40am Monocytes (%) (Auto) 6.6 % 4.4-11.3 06/29/2017 6:00am 06/29/2017 6: 40am Eosinophils (%) (Auto) 1.5 % 0.0-6.0 06/29/2017 6:00am 06/29/2017 6: 40am Basophils (%) (Auto) 0.4 % 0.0-1.0 06/29/2017 6:00am 06/29/2017 6:40am IM GRANULOCYTES % 0.3 % 0.0-1.0 06/29/2017 6:00am 06/29/2017 6:40am Neutrophils # (Auto) 5.5 2.1-6.9 06/29/2017 6:00am 06/29/2017 6:40am Lymphocytes # (Auto) 4.8 H 1.0-3.2 06/29/2017 6:00am 06/29/2017 6: 40am Monocytes # (Auto) 0.7 0.2-0.8 06/29/2017 6:00am 06/29/2017 6:40am Eosinophils # (Auto) 0.2 0.0-0.4 06/29/2017 6:00am 06/29/2017 6:40am Basophils # (Auto) 0.0 0.0-0.1 06/29/2017 6:00am 06/29/2017 6:40am Absolute Immature Granulocyte (auto 0.03 x10e3/uL 0-0.1 06/29/2017 6: 00am 06/29/2017 6:40am Prothrombin Time 12.5 seconds 11.9-14.5 06/27/2017 1:14pm 06/27/2017 2: 14pm Prothromb Time International Ratio 0.89 06/27/2017 1:14pm 2017 2:14pm Oral Anticoagulant Therapy INR Values: 1. Low Intensity Therapy 1.5 - 2.0 2. Moderate Intensity Therapy 2.0 - 3.0 3. High Intensity Therapy(1) 2.5 - 3.5 4. High Intensity Therapy(2) 3.0 - 4.0 5. Panic Value INR > 5.0 Activated Partial Thromboplast Time 31.5 seconds 23.8-35.5 06/27/2017 1: 14pm 06/27/2017 2:18pm Urine Color YELLOW YELLOW 06/27/2017 12:06pm 06/27/2017 12:56pm Urine Clarity CLEAR CLEAR 06/27/2017 12:06pm 06/27/2017 12:56pm Urine Specific Moran 1.015 1.010-1.025 06/27/2017 12:06pm 2017 12:56pm Urine pH 5 5 - 7 06/27/2017 12:06pm 06/27/2017 12:56pm Urine Leukocyte Esterase TRACE H NEGATIVE 06/27/2017 12:06pm 2017 12:56pm Urine Nitrite NEGATIVE NEGATIVE 06/27/2017 12:06pm 06/27/2017 12: 56pm Urine Protein NEGATIVE NEGATIVE 06/27/2017 12:06pm 06/27/2017 12: 56pm Urine Glucose (UA) NEGATIVE NEGATIVE 06/27/2017 12:06pm 06/27/2017 12 :56pm Urine Ketones NEGATIVE NEGATIVE 06/27/2017 12:06pm 06/27/2017 12: 56pm Urine Urobilinogen 0.2 mg/dL 0.2 - 1 06/27/2017 12:06pm 06/27/2017 12: 56pm Urine Bilirubin NEGATIVE NEGATIVE 06/27/2017 12:06pm 06/27/2017 12: 56pm Urine Blood NEGATIVE NEGATIVE 06/27/2017 12:06pm 06/27/2017 12:56pm Urine WBC 11-20 /HPF H 0-5 06/27/2017 12:06pm 06/27/2017 1:13pm Urine RBC 6-10 /HPF H 0-5 06/27/2017 12:06pm 06/27/2017 1:13pm Urine Bacteria MODERATE /HPF H NONE 06/27/2017 12:06pm 06/27/2017 1: 13pm Urine Epithelial Cells FEW /LPF NONE 06/27/2017 12:06pm 06/27/2017 1: 13pm Urine Hyaline Casts 6-10 H 0-1 06/27/2017 12:06pm 06/27/2017 1:13pm Sodium Level 143 mmol/L 136-145 06/29/2017 6:00am 06/29/2017 7:07am Potassium Level 4.0 mmol/L # 3.5-5.1 06/29/2017 6:00am 06/29/2017 7:07am Chloride Level 106 mmol/L 98-107 06/29/2017 6:00am 06/29/2017 7:07am Carbon Dioxide Level 29 mmol/L 22-29 06/29/2017 6:00am 06/29/2017 7: 07am Anion Gap 12.0 mmol/L 8-16 06/29/2017 6:00am 06/29/2017 7:07am Blood Urea Nitrogen 11 mg/dL 7-06/29/2017 6:00am 06/29/2017 7:07am Creatinine 0.86 mg/dL 0.57-1.11 06/29/2017 6:00am 06/29/2017 7:07am BUN/Creatinine Ratio 13 6-25 06/29/2017 6:00am 06/29/2017 7:07am Estimat Glomerular Filtration Rate > 60 ML/MIN 60- 06/29/2017 6:00am 7:07am Ranges were taken from the National Kidney Disease Education Program and the National Kid[employer] Foundation literature. Reference ranges: 60 or greater: Normal 16-59 (for 3 consecutive months): Chronic kidney disease 15 or less: Kidney failure Glucose Level 91 mg/dL 74-118 06/29/2017 6:00am 06/29/2017 7:07am Calcium Level 9.1 mg/dL 8.4-10.2 06/29/2017 6:00am 06/29/2017 7:07am Magnesium Level 1.9 MG/DL 1.3-2.1 06/29/2017 6:00am 06/29/2017 7:07am Total Bilirubin 0.4 mg/dL 0.2-1.2 06/27/2017 1:14pm 06/27/2017 2:23pm Aspartate Amino Transf (AST/SGOT) 12 IU/L 5-34 06/27/2017 1:14pm 2017 2:23pm Alanine Aminotransferase (ALT/SGPT) 10 IU/L 0-55 06/27/2017 1:14pm 2:23pm Total Protein 8.2 g/dL H 6.5-8.1 06/27/2017 1:14pm 06/27/2017 2:23pm Albumin 4.0 g/dL 3.5-5.0 06/27/2017 1:14pm 06/27/2017 2:23pm Globulin 4.2 g/dL H 2.3-3.5 06/27/2017 1:14pm 06/27/2017 2:23pm Albumin/Globulin Ratio 1.0 0.8-2.0 06/27/2017 1:14pm 06/27/2017 2: 23pm Alkaline Phosphatase 119 IU/L 40-150 06/27/2017 1:14pm 06/27/2017 2: 23pm Triglycerides Level 216 MG/DL H 0-149 06/28/2017 6:20am 06/28/2017 7: 11am Cholesterol Level 243 MD/DL H 0-199 06/28/2017 6:20am 06/28/2017 7:11am Less than 200 mg/dL Low Risk 201 - 239 mg/dL Borderline Risk 240 mg/dl and greater High Risk LDL Cholesterol 169 MG/DL H 60-130 06/28/2017 6:20am 06/28/2017 7:11am HDL Cholesterol 31 MG/DL L 40-60 06/28/2017 6:20am 06/28/2017 7:11am Cholesterol/HDL Ratio 7.8 H 3.0-3.6 06/28/2017 6:20am 06/28/2017 7: 11am B-Type Natriuretic Peptide 26.3 pg/mL 0-100 06/27/2017 1:14pm 2017 2:35pm Creatine Kinase 42 IU/L 29-168 06/28/2017 6:20am 06/28/2017 7:11am Creatine Kinase MB 0.80 ng/mL 0.00-5.00 06/28/2017 6:20am 06/28/2017 7: 19am Troponin I < 0.001 ng/mL 0-0.300 06/28/2017 6:20am 06/28/2017 7:19am Thyroid Stimulating Hormone (TSH) 4.871 uIU/mL 0.350-4.940 06/29/2017 6: 00am 06/29/2017 7:14am Procedures Procedure Status Date Provider(s) US gallbladder Active 10/11/16 VITO JESUS MD X-ray of chest, two views Active 11/15/[address] of abdomen and pelvis without contrast Active 11/15/16 LAURA SHEPHERD MD Computed tomography of chest with contrast Active 05/07/17 LAURA SHEPHERD MD Encounters Encounter Location Arrival/Admit Date Discharge/Depart Date Attending Provider Discharged Inpatient (obs) [facility] 06/27/17 5:02pm 07/15 3:05pm WINDY SAXENA MD Departed Emergency Room [facility] 05/07/17 12:48pm 05/08 10:08am LAURA SHEPHERD MD Departed Emergency Room [facility] 11/15/16 11:29am 11/15 7:21pm LAURA SHEPHERD MD Discharged Inpatient (obs) [facility] 10/10/16 8:31am 11:16am VITO JESUS MD
[2017-08-03 18:54] LABS: BASOPHILS # (AUTO) 0.1 (0.0-0.1); BASOPHILS % 0.4 % (0.0-1.0); EOSINOPHILS # (AUTO) 0.2 (0.0-0.4); EOSINOPHILS % 1.1 % (0.0-6.0); HEMATOCRIT 39.5 % (34.2-44.1); LYMPHOCYTES # (AUTO) 4.6 (1.0-3.2); LYMPHOCYTES % 32.5 % (18.0-39.1); MEAN CORPUSCULAR HEMOGLOBIN 31.3 pg (28-32); MEAN CORPUSCULAR HGB CONC 35.4 g/dL (31-35); MEAN CORPUSCULAR VOLUME 88.2 fL (81-99); MONOCYTES # (AUTO) 0.5 (0.2-0.8); MONOCYTES % 3.7 % (4.4-11.3); NEUTROPHILS # (AUTO) 8.7 (2.1-6.9); NEUTROPHILS % 61.9 % (38.7-80.0); PLATELET COUNT 363 x10e3/uL (140-360); RED BLOOD COUNT 4.48 x10e6/uL (3.6-5.1); RED CELL DISTRIBUTION WIDTH 13.7 % (11.7-14.4)
[2017-08-03 19:00] LABS: INR 0.96
[2017-08-03 19:01] LABS: PARTIAL THROMBOPLASTIN TIME 30.9 seconds (23.8-35.5)
[2017-08-03 19:10] LABS: ALANINE AMINOTRANSFERASE 15 IU/L (0-55); ALBUMIN 3.6 g/dL (3.5-5.0); ALBUMIN/GLOBULIN RATIO 0.9 (0.8-2.0); ALKALINE PHOSPHATASE 104 IU/L (40-150); ANION GAP 15.5 mmol/L (8-16); BLOOD UREA NITROGEN 10 mg/dL (7-26); BUN/CREATININE RATIO 13 (6-25); CALCIUM 9.3 mg/dL (8.4-10.2); CARBON DIOXIDE 30 mmol/L (22-29); CHLORIDE 98 mmol/L (98-107); CREATINE KINASE 62 IU/L (29-168); CREATININE, SERUM 0.79 mg/dL (0.57-1.11); EST GLOMERULAR FILTRATION RATE > 60 ML/MIN (60-); GLUCOSE 83 mg/dL (74-118); SODIUM 141 mmol/L (136-145)
[2017-08-03 19:13] LABS: POTASSIUM 2.5 mmol/L (3.5-5.1)
[2017-08-03] MEDS ORDERED: POTASSIUM CHLORIDE 20MEQ/15ML UDC NG ONE (20:30)
[2017-08-03] MEDS ORDERED: POTASSIUM CHLORIDE 20MEQ/15ML UDC PO NR (20:30)
--- NOTE | 2017-08-03 21:43 | Diagnostic Imaging Report ---
EXAMINATION: CHEST 2 VIEWS INDICATION: Chest pain for one hour COMPARISON: 06/27/2017 FINDINGS: TUBES and LINES: The left-sided pacemaker is intact. LUNGS: Lungs are well inflated. Lungs are clear. There is no evidence of pneumonia or pulmonary edema. PLEURA: No pleural effusion or pneumothorax. HEART AND MEDIASTINUM: The cardiomediastinal silhouette is unremarkable. BONES AND SOFT TISSUES: No acute osseous lesion. Soft tissues are unremarkable. UPPER ABDOMEN: No free air under the diaphragm. IMPRESSION: No acute thoracic abnormality. Signed by: Dr. Jose Reyes M.D. on 08/03/2017 9:40 PM
[2017-08-03 21:48] VITALS: BP 130/99
== END 2017-08-03 22:05 | disposition home or self-care (01) ==
LOC: ER 17:53
DX: R07.89 Other chest pain (principal)
CPT/HCPCS: 36415; 71046; 80053; 82550; 82553; 84484; 85025; 85610; 85730; 93005; 99284

== ENCOUNTER 2017-10-26 01:24 | Emergency (ER) | payer MEDICARE ==
[~2017-10-26] VITALS: Ht 162.6 cm; Wt 79.8 kg
--- OUTSIDE RECORDS SUMMARY | 2017-10-26 01:27 | XMS REPORT | Continuity of Care Document ---
Author Author [facility] Organization [facility] Address [address] [place] [address] Phone Unavailable Care Team Providers Care Pilling Machine Operator Name Role Phone PIERO CHRISTIAN MD PCP Insurance Providers Guarantor Ryland Stiles Address [address] [place] [address] Email NONE Payer [employer] Medicare Advantage Policy Number [id number] Subscriber's Name SarbjitannabelRyland Relationship 18 Self / Same As Patient Group Number [id number] Group Name UNEMPLOYED Effective Date 17 Payer [facility] Policy Number [id number] Subscriber's Name SarbjitannabelRyland Relationship 18 Self / Same As Patient Effective Date 17 Advance Directives Directive Response Recorded Date/Time Does the patient have an advance directive? No 06/27/17 8:47pm If yes, is advance directive on file with [facility]? No 06/27/17 8:47pm If not on file with [facility] will patient provide a copy? Yes 06/27/17 8:47pm Problems Medical Problem Onset Date Status Abdominal [...] Oral Every 6 Hours Discontinued Acetaminophen/Hydrocodone Bitart ([place] 10MG-325MG*) 1 Ea Tab, 1 Tab Oral [...] 25 Mg Oral Daily Discontinued Hydrocodone Bit/Acetaminophen ([place] 10-325 Tablet) 1 Each Tablet, Oral Every [...] No 06/27/2017 8:47pm Not Applicable Not Applicable Hospital Discharge Instructions No hospital discharge instruction information available. Plan of Care Discharge Date 08/03/17 10:05pm Disposition HOME, SELF-CARE Condition at Discharge Stable Instructions/Education Provided Chest Pain - Chest Wall Forms Provided Work/School Excuse Prescriptions See Medication Section Referrals PIERO CHRISTIAN MD Address: [address] [place] [phone] Additional Instructions/Education FOLLOW UP WITH YOUR PRIMARY CARE PHYSICIAN ON SUNDAY. TAKE ALL MEDICATION DIRECTED. Functional Status No functional status information available. Allergies, Adverse Reactions, Alerts Allergen Type Severity Reaction Status Last Updated Penicillin Allergy Unknown Active 11/15/16 Sulfa (Sulfonamide Antibiotics) Allergy Unknown Active 11/15/16 Cefaclor Allergy Unknown Active 11/15/16 Tetracycline Allergy Unknown Active 11/15/16 Povidone-iodine Allergy Unknown Active 11/15/16 Immunizations No immunization information available. Vital Signs Acute Vital Signs Vital Response Date/Time Temperature (Fahrenheit) 98.8 degrees F (97.6 - 99.5) 08/03/2017 9:48pm Pulse Pulse Rate (adult) 69 bpm (60 - 90) 08/03/2017 9:48pm Respiratory Rate 20 bpm (12 - 24) 08/03/2017 9:48pm Blood Pressure 130/99 mm Hg 08/03/2017 9:48pm Height 5 ft 4 in 08/03/2017 6:15pm Weight 176 lb 08/03/2017 6:15pm Body Mass Index 30.2 kg/m^2 08/03/2017 6:15pm Results Laboratory Results Test Name Result Units [...] 50 Barbiturates 300 Benzodiazepine 300 Methadone 300 Urine Color YELLOW YELLOW 06/27/2017 12:06pm 06/27/2017 12:56pm Urine Clarity CLEAR CLEAR 06/27/2017 12:06pm 06/27/2017 12:56pm Urine Specific [place] 1.015 1.010-1.025 06/27/2017 12:06pm 2017 12:56pm Urine [...] 6-10 H 0-1 06/27/2017 12:06pm 06/27/2017 1:13pm Magnesium Level 1.9 MG/DL 1.3-2.1 06/29/2017 6:00am 06/29/2017 7:07am Triglycerides Level 216 MG/DL H 0-149 06/28/2017 [...] 26.3 pg/mL 0-100 06/27/2017 1:14pm 2017 2:35pm Thyroid Stimulating Hormone (TSH) 4.871 uIU/mL 0.350-4.940 06/29/2017 6: 00am 06/29/2017 7:14am White Blood Count 14.07 x10e3/uL H 4.8-10.8 08/03/2017 6:24pm 2017 6:56pm Red Blood Count 4.48 x10e6/uL 3.6-5.1 08/03/2017 6:24pm 08/03/2017 6: 56pm Hemoglobin 14.0 g/dL 12.0-16.0 08/03/2017 6:24pm 08/03/2017 6:56pm Hematocrit 39.5 % 34.2-44.1 08/03/2017 6:24pm 08/03/2017 6:56pm Mean Corpuscular Volume 88.2 fL 81-99 08/03/2017 6:24pm 08/03/2017 6: 56pm Mean Corpuscular Hemoglobin 31.3 pg 28-32 08/03/2017 6:24pm 08/03/2017 6:56pm Mean Corpuscular Hemoglobin Concent 35.4 g/dL H 31-35 08/03/2017 6:24pm 08/03/2017 6:56pm Red Cell Distribution Width 13.7 % 11.7-14.4 08/03/2017 6:24pm 2017 6:56pm Platelet Count 363 x10e3/uL H 140-360 08/03/2017 6:24pm 08/03/2017 6: 56pm Neutrophils (%) (Auto) 61.9 % 38.7-80.0 08/03/2017 6:24pm 08/03/2017 6: 56pm Lymphocytes (%) (Auto) 32.5 % 18.0-39.1 08/03/2017 6:24pm 08/03/2017 6: 56pm Monocytes (%) (Auto) 3.7 % L 4.4-11.3 08/03/2017 6:24pm 08/03/2017 6: 56pm Eosinophils (%) (Auto) 1.1 % 0.0-6.0 08/03/2017 6:24pm 08/03/2017 6: 56pm Basophils (%) (Auto) 0.4 % 0.0-1.0 08/03/2017 6:24pm 08/03/2017 6:56pm IM GRANULOCYTES % 0.4 % 0.0-1.0 08/03/2017 6:24pm 08/03/2017 6:56pm Neutrophils # (Auto) 8.7 H 2.1-6.9 08/03/2017 6:24pm 08/03/2017 6: 56pm Lymphocytes # (Auto) 4.6 H 1.0-3.2 08/03/2017 6:24pm 08/03/2017 6: 56pm Monocytes # (Auto) 0.5 0.2-0.8 08/03/2017 6:24pm 08/03/2017 6:56pm Eosinophils # (Auto) 0.2 0.0-0.4 08/03/2017 6:24pm 08/03/2017 6:56pm Basophils # (Auto) 0.1 0.0-0.1 08/03/2017 6:24pm 08/03/2017 6:56pm Absolute Immature Granulocyte (auto 0.06 x10e3/uL 0-0.1 08/03/2017 6: 24pm 08/03/2017 6:56pm Prothrombin Time 12.0 seconds 11.9-14.5 08/03/2017 6:24pm 08/03/2017 7: 01pm Prothromb Time International Ratio 0.96 08/03/2017 6:24pm 2017 7:01pm Oral Anticoagulant Therapy INR Values: 1. Low Intensity Therapy 1.5 - 2.0 2. Moderate Intensity Therapy 2.0 - 3.0 3. High Intensity Therapy(1) 2.5 - 3.5 4. High Intensity Therapy(2) 3.0 - 4.0 5. Panic Value INR > 5.0 Activated Partial Thromboplast Time 30.9 seconds 23.8-35.5 08/03/2017 6: 24pm 08/03/2017 7:01pm Sodium Level 141 mmol/L 136-145 08/03/2017 6:24pm 08/03/2017 7:13pm Potassium Level 2.5 mmol/L *L 3.5-5.1 08/03/2017 6:24pm 08/03/2017 7: 13pm Results called to YANET SAL RN at 1912 on 08/03/17 by Cliff Gee. RB OK. This test has been rerun and double checked for accuracy. Chloride Level 98 mmol/L 98-107 08/03/2017 6:24pm 08/03/2017 7:13pm Carbon Dioxide Level 30 mmol/L H 22-08/03/2017 6:24pm 08/03/2017 7: 13pm Anion Gap 15.5 mmol/L 8-16 08/03/2017 6:24pm 08/03/2017 7:13pm Blood Urea Nitrogen 10 mg/dL 7-08/03/2017 6:24pm 08/03/2017 7:13pm Creatinine 0.79 mg/dL 0.57-1.11 08/03/2017 6:24pm 08/03/2017 7:13pm BUN/Creatinine Ratio 13 6-25 08/03/2017 6:24pm 08/03/2017 7:13pm Estimat Glomerular Filtration Rate > 60 ML/MIN 60- 08/03/2017 6:24pm 7:13pm Ranges were taken from the National Kidney Disease Education Program and the National Kidney Foundation literature. Reference ranges: 60 or greater: Normal 16-59 (for 3 consecutive months): Chronic kidney disease 15 or less: Kidney failure Glucose Level 83 mg/dL 74-118 08/03/2017 6:24pm 08/03/2017 7:13pm Calcium Level 9.3 mg/dL 8.4-10.2 08/03/2017 6:24pm 08/03/2017 7:13pm Total Bilirubin 0.4 mg/dL 0.2-1.2 08/03/2017 6:24pm 08/03/2017 7:13pm Aspartate Amino Transf (AST/SGOT) 15 IU/L 5-34 08/03/2017 6:24pm 2017 7:13pm Alanine Aminotransferase (ALT/SGPT) 15 IU/L 0-55 08/03/2017 6:24pm 01/2018 7:13pm Total Protein 7.6 g/dL 6.5-8.1 08/03/2017 6:24pm 08/03/2017 7:13pm Albumin 3.6 g/dL 3.5-5.0 08/03/2017 6:24pm 08/03/2017 7:13pm Globulin 4.0 g/dL H 2.3-3.5 08/03/2017 6:24pm 08/03/2017 7:13pm Albumin/Globulin Ratio 0.9 0.8-2.0 08/03/2017 6:24pm 08/03/2017 7: 13pm Alkaline Phosphatase 104 IU/L 40-150 08/03/2017 6:24pm 08/03/2017 7: 13pm Creatine Kinase 62 IU/L 29-168 08/03/2017 6:24pm 08/03/2017 7:13pm Creatine Kinase MB 0.50 ng/mL 0-5.0 08/03/2017 6:24pm 08/03/2017 7: 18pm Troponin I 0.006 ng/mL 0-0.300 08/03/2017 6:24pm 08/03/2017 7:18pm Procedures Procedure Status Date Provider(s) US gallbladder Active 10/11/16 VITO JESUS MD X-ray of chest, two views Active 11/15/[address] of abdomen and pelvis without contrast Active 11/15/16 LAURA SHEPHERD MD Computed tomography of chest with contrast Active 05/07/17 LAURA SHEPHERD MD X-ray of chest, two views Active 08/03/17 MARIA G CHATMAN Encounters Encounter Location Arrival/Admit Date Discharge/Depart Date Attending Provider Departed Emergency Room [facility] 08/03/17 5:53pm 10:05pm MARIA G CHATMAN Discharged Inpatient (obs) [facility] 06/27/17 5:02pm 07/15 3:05pm WINDY SAXENA MD Departed Emergency Room [facility] 05/07/17 12:48pm 05/08 10:08am LAURA SHEPHERD MD Departed Emergency Room [facility] 11/15/16 11:29am 11/15 7:21pm LAURA SHEPHERD MD Discharged Inpatient (obs) [facility] 10/10/16 8:31am 11:16am VITO JESUS MD
[2017-10-26] MEDS ORDERED: SODIUM CHLORIDE 0.9% 1000ML 1,000 ML IV STA (02:46)
[2017-10-26] MEDS ORDERED: PANTOPRAZOLE 40 MG 10ML VIAL IV STA (02:46)
[2017-10-26 02:57] LABS: BASOPHILS # (AUTO) 0.1 (0.0-0.1); BASOPHILS % 0.6 % (0.0-1.0); EOSINOPHILS # (AUTO) 0.3 (0.0-0.4); EOSINOPHILS % 2.8 % (0.0-6.0); HEMATOCRIT 40.1 % (34.2-44.1); HEMOGLOBIN 13.4 g/dL (12.0-16.0); LYMPHOCYTES # (AUTO) 4.4 (1.0-3.2); LYMPHOCYTES % 43.6 % (18.0-39.1); MEAN CORPUSCULAR HEMOGLOBIN 31.8 pg (28-32); MEAN CORPUSCULAR HGB CONC 33.4 g/dL (31-35); MONOCYTES # (AUTO) 0.5 (0.2-0.8); MONOCYTES % 5.3 % (4.4-11.3); NEUTROPHILS # (AUTO) 4.8 (2.1-6.9); NEUTROPHILS % 47.4 % (38.7-80.0); PLATELET COUNT 322 x10e3/uL (140-360); RED BLOOD COUNT 4.22 x10e6/uL (3.6-5.1); RED CELL DISTRIBUTION WIDTH 13.1 % (11.7-14.4)
[2017-10-26] MEDS ORDERED: ONDANSETRON HCL 4 MG ORAL DISINTEGRATING TAB PO ONE (03:00)
[2017-10-26 03:01] LABS: CLARITY,URINE CLEAR (CLEAR); COLOR,URINE YELLOW (YELLOW); LEUKOCYTE ESTERASE ,URINE NEGATIVE (NEGATIVE); NITRITE,URINE NEGATIVE (NEGATIVE); PROTEIN,URINE DIPSTICK NEGATIVE (NEGATIVE)
[2017-10-26 03:02] LABS: BILIRUBIN,URINE NEGATIVE (NEGATIVE); INR 1.45; KETONES,URINE NEGATIVE (NEGATIVE); PROTHROMBIN TIME 16.6 seconds (11.9-14.5); URINE UROBILINOGEN 0.2 mg/dL (0.2 - 1)
[2017-10-26 03:03] LABS: PARTIAL THROMBOPLASTIN TIME 45.3 seconds (23.8-35.5); PREGNANCY TEST, URINE NEGATIVE (NEGATIVE)
[2017-10-26 03:11] LABS: ALANINE AMINOTRANSFERASE 10 IU/L (0-55); ALBUMIN 3.8 g/dL (3.5-5.0); ALBUMIN/GLOBULIN RATIO 1.1 (0.8-2.0); ALKALINE PHOSPHATASE 99 IU/L (40-150); AMYLASE 32 U/L (25-125); ANION GAP 14.4 mmol/L (8-16); BLOOD UREA NITROGEN 17 mg/dL (7-26); BUN/CREATININE RATIO 14 (6-25); CALCIUM 9.7 mg/dL (8.4-10.2); CARBON DIOXIDE 27 mmol/L (22-29); CHLORIDE 99 mmol/L (98-107); CREATINE KINASE 52 IU/L (29-168); CREATININE, SERUM 1.25 mg/dL (0.57-1.11); EST GLOMERULAR FILTRATION RATE 45 ML/MIN (60-); GLUCOSE 90 mg/dL (74-118); LIPASE 21 U/L (8-78); MAGNESIUM 1.8 MG/DL (1.3-2.1); POTASSIUM 3.4 mmol/L (3.5-5.1); SODIUM 137 mmol/L (136-145)
[2017-10-26 03:13] LABS: BACTERIA,URINE FEW /HPF; EPITHELIAL CELLS,URINE FEW /LPF; RBC,URINE 0-5 /HPF (0-5)
[2017-10-26 03:14] LABS: MUCUS,URINE FEW (RARE)
[2017-10-26] MEDS ORDERED: SODIUM CHLORIDE 0.9% 50ML 50 ML ONE (04:12)
[2017-10-26] MEDS ORDERED: IOPAMIDOL 370 MG/ML 200 ML INFUS..BTL INJ ONE (04:12)
--- NOTE | 2017-10-26 06:37 | Diagnostic Imaging Report ---
EXAM: CT ABDOMEN/PELVIS W DATE: 10/26/2017 2:46 AM INDICATION: Right-sided pain COMPARISON: 05/21/2016 TECHNIQUE: The abdomen and pelvis were scanned using a multidetector helical scanner. Coronal and sagittal reformations were obtained. Routine protocol performed. Note that technical tissues resulted in a delay in interpretation. IV Contrast: 100 ml Isovue 300/370 FINDINGS: LOWER THORAX: Cardiomegaly with partially imaged right atrial and ventricular leads. Right lower lobe calcified granuloma. LIVER/BILIARY: No masses. No ductal dilatation. GALLBLADDER: Unremarkable SPLEEN: Unremarkable PANCREAS: Unremarkable ADRENALS: No nodules KIDNEYS: Symmetric perfusion. No enhancing masses. No hydronephrosis. GI TRACT: No wall thickening or evidence of obstruction. Scattered diverticula. Appendix is again not identified. VESSELS: Mild atherosclerotic changes. PERITONEUM/RETROPERITONEUM: No free air or fluid. Multiple pelvic and right lower quadrant clips. LYMPH NODES: No lymphadenopathy REPRODUCTIVE ORGANS/BLADDER: Postoperative changes status post hysterectomy. SOFT TISSUES: Small fat-containing umbilical hernia. BONES: Multilevel degenerative changes. IMPRESSION: No acute abnormality. Signed by: Dr Leda Miller MD on 10/26/2017 6:33 AM
--- NOTE | 2017-10-26 06:39 | Diagnostic Imaging Report ---
CHEST SINGLE (PORTABLE), 10/26/2017 2:46 AM Technique: CHEST SINGLE (PORTABLE) Comparison: 08/13/2017, Clinical history: Abdominal pain Findings: See Impression Impression: 1. Lines/Tubes: Stable left chest wall dual-lead pacer. 2. Moderate cardiomegaly, accentuated by portable technique. 3. No edema or consolidation. No pleural effusion or pneumothorax. Signed by: Dr Leda Miller MD on 10/26/2017 6:35 AM
== END 2017-10-26 08:06 | disposition home or self-care (01) ==
LOC: ER 01:24
DX: R10.11 Right upper quadrant pain (principal); R11.0 Nausea; N30.90 Cystitis, unspecified without hematuria
CPT/HCPCS: 36415; 71045; 74177; 80053; 81001; 81025; 82150; 82550; 82553; 83690; 83735; 83880; 84484; 85025; 85610; 85730; 87086; 99284; J7030; Q9967

== ENCOUNTER 2017-11-17 21:19 | Observation (INO) | payer MEDICARE ==
[~2017-11-17] VITALS: Ht 162.6 cm; Wt 79.6 kg
[~2017-11-17 21:19] MED LIST changes: -DILTIAZEM 24HR120 M1; +DILTIAZEM 24HR120 M1 PO
[2017-11-17] MEDS ORDERED: NITROGLYCERIN 2% OINT 1 GM PKT TOP ONE (21:30)
[2017-11-17 22:34] LABS: BASOPHILS # (AUTO) 0.1 (0.0-0.1); BASOPHILS % 0.6 % (0.0-1.0); EOSINOPHILS # (AUTO) 0.4 (0.0-0.4); EOSINOPHILS % 2.8 % (0.0-6.0); HEMATOCRIT 38.6 % (34.2-44.1); HEMOGLOBIN 13.1 g/dL (12.0-16.0); LYMPHOCYTES # (AUTO) 4.9 (1.0-3.2); LYMPHOCYTES % 37.5 % (18.0-39.1); MEAN CORPUSCULAR HEMOGLOBIN 31.9 pg (28-32); MEAN CORPUSCULAR HGB CONC 33.9 g/dL (31-35); MEAN CORPUSCULAR VOLUME 93.9 fL (81-99); MONOCYTES # (AUTO) 0.7 (0.2-0.8); MONOCYTES % 5.2 % (4.4-11.3); NEUTROPHILS % 53.6 % (38.7-80.0); PLATELET COUNT 308 x10e3/uL (140-360); RED BLOOD COUNT 4.11 x10e6/uL (3.6-5.1); RED CELL DISTRIBUTION WIDTH 13.3 % (11.7-14.4)
--- NOTE | 2017-11-17 22:37 | Diagnostic Imaging Report ---
CHEST SINGLE (PORTABLE), 11/17/2017 9:27 PM Technique: CHEST SINGLE (PORTABLE) Comparison: 08/03/2017, Clinical history: Chest pain Findings: See Impression Impression: 1. Lines/Tubes: Stable left chest wall dual-lead pacer. 2. Stable cardiomediastinal silhouette. 3. No edema or consolidation. No pleural effusion or pneumothorax. Signed by: Dr Leda Miller MD on 11/17/2017 10:34 PM
[2017-11-17 22:43] LABS: INR 1.96
[2017-11-17 22:44] LABS: PARTIAL THROMBOPLASTIN TIME 45.7 seconds (23.8-35.5)
[2017-11-17 22:53] LABS: ALANINE AMINOTRANSFERASE 14 IU/L (0-55); ALBUMIN 3.7 g/dL (3.5-5.0); ALBUMIN/GLOBULIN RATIO 0.9 (0.8-2.0); ALKALINE PHOSPHATASE 106 IU/L (40-150); ANION GAP 15.5 mmol/L (8-16); BLOOD UREA NITROGEN 13 mg/dL (7-26); BUN/CREATININE RATIO 16 (6-25); CALCIUM 9.2 mg/dL (8.4-10.2); CARBON DIOXIDE 20 mmol/L (22-29); CHLORIDE 108 mmol/L (98-107); CREATINE KINASE 69 IU/L (29-168); CREATININE, SERUM 0.81 mg/dL (0.57-1.11); EST GLOMERULAR FILTRATION RATE > 60 ML/MIN (60-); GLUCOSE 103 mg/dL (74-118); POTASSIUM 3.5 mmol/L (3.5-5.1); SODIUM 140 mmol/L (136-145)
[2017-11-17] MEDS ORDERED: MORPHINE SULFATE 2 MG/ML SYR IV STA (23:04)
[2017-11-17] MEDS ORDERED: ONDANSETRON HCL INJ 2 MG/ML VIAL IV STA (23:04)
[2017-11-17 23:11] LABS: CLARITY,URINE CLEAR (CLEAR); COLOR,URINE YELLOW (YELLOW); LEUKOCYTE ESTERASE ,URINE NEGATIVE (NEGATIVE)
[2017-11-17 23:12] LABS: BACTERIA,URINE FEW /HPF; BILIRUBIN,URINE NEGATIVE (NEGATIVE); EPITHELIAL CELLS,URINE MANY /LPF; KETONES,URINE NEGATIVE (NEGATIVE); MUCUS,URINE MANY (RARE); NITRITE,URINE NEGATIVE (NEGATIVE); PROTEIN,URINE DIPSTICK NEGATIVE (NEGATIVE); URINE UROBILINOGEN 0.2 mg/dL (0.2 - 1)
[2017-11-17] MEDS ORDERED: LISINOPRIL10 MG PO (23:55)
[2017-11-18] VITALS (8 sets, daily range): BP systolic 124–159; BP diastolic 73–96
[2017-11-18] MEDS ORDERED: ONDANSETRON HCL INJ 2 MG/ML VIAL IV PRN
[2017-11-18] MEDS ORDERED: LEXAPRO10 MG PO (02:09)
[2017-11-18] MEDS ORDERED: METOCLOPRAMIDE10 MG PO (02:11)
[2017-11-18] MEDS: MORPHINE SULFATE 2 MG/ML SYR IV PRN ×6 (02:30→21:39)
[2017-11-18] MEDS: FAMOTIDINE 20 MG/2 ML VIAL IV SCH ×2 (02:38→12:33)
[2017-11-18] MEDS ORDERED: DILTIAZEM HCL 120 MG CAP CD PO SCH (09:00)
[2017-11-18 09:09] LABS: BASOPHILS # (AUTO) 0.1 (0.0-0.1); BASOPHILS % 0.6 % (0.0-1.0); EOSINOPHILS # (AUTO) 0.4 (0.0-0.4); EOSINOPHILS % 3.7 % (0.0-6.0); HEMATOCRIT 37.1 % (34.2-44.1); HEMOGLOBIN 12.3 g/dL (12.0-16.0); LYMPHOCYTES # (AUTO) 5.4 (1.0-3.2); LYMPHOCYTES % 45.1 % (18.0-39.1); MEAN CORPUSCULAR HEMOGLOBIN 30.9 pg (28-32); MEAN CORPUSCULAR HGB CONC 33.2 g/dL (31-35); MEAN CORPUSCULAR VOLUME 93.2 fL (81-99); MONOCYTES # (AUTO) 0.8 (0.2-0.8); MONOCYTES % 6.6 % (4.4-11.3); NEUTROPHILS # (AUTO) 5.2 (2.1-6.9); NEUTROPHILS % 43.7 % (38.7-80.0); PLATELET COUNT 348 x10e3/uL (140-360); RED BLOOD COUNT 3.98 x10e6/uL (3.6-5.1); RED CELL DISTRIBUTION WIDTH 13.4 % (11.7-14.4)
[2017-11-18] MEDS: ASPIRIN 81 MG ENTERIC COATED PO SCH (09:42)
[2017-11-18] MEDS: AMIODARONE HCL 200 MG TAB PO SCH ×2 (09:43→16:05)
[2017-11-18] MEDS: FUROSEMIDE 40 MG TAB PO SCH (09:43)
[2017-11-18] MEDS: METOPROLOL SUCCINATE 50 MG TAB XL PO SCH (09:43)
[2017-11-18 09:56] LABS: ALANINE AMINOTRANSFERASE 14 IU/L (0-55); ALBUMIN 3.3 g/dL (3.5-5.0); ALKALINE PHOSPHATASE 89 IU/L (40-150); ANION GAP 11.5 mmol/L (8-16); BLOOD UREA NITROGEN 13 mg/dL (7-26); BUN/CREATININE RATIO 18 (6-25); CALCIUM 8.8 mg/dL (8.4-10.2); CARBON DIOXIDE 26 mmol/L (22-29); CHLORIDE 109 mmol/L (98-107); CHOL/HDL RATIO 3.7 (3.0-3.6); CHOLESTEROL 168 MD/DL (0-199); CREATININE, SERUM 0.74 mg/dL (0.57-1.11); EST GLOMERULAR FILTRATION RATE > 60 ML/MIN (60-); GLUCOSE 87 mg/dL (74-118); HDL CHOLESTEROL 46 MG/DL (40-60); LDL CHOLESTEROL 101 MG/DL (60-130); POTASSIUM 3.5 mmol/L (3.5-5.1); SODIUM 143 mmol/L (136-145); TRIGLYCERIDES 106 MG/DL (0-149)
[2017-11-18 10:29] LABS: CREATINE KINASE 53 IU/L (29-168)
[2017-11-18 10:38] LABS: EOSINOPHILS % (MANUAL) 2 % (0-7); LYMPHOCYTES % (MANUAL) 50 % (19-48); MONOCYTES % (MANUAL) 6 % (3.4-9.0); NEUTROPHILS % (MANUAL) 42 % (40-74); PLATELET ESTIMATE ADEQUATE; PLATELET MORPHOLOGY COMMENT NORMAL; RBC MORPHOLOGY COMMENT NORMAL
[2017-11-18] MEDS ORDERED: DIPHENHYDRAMINE HCL 25 MG CAP PO PRN (13:15)
--- NOTE | 2017-11-18 13:21 | History and Physical ---
HISTORY OF PRESENT ILLNESS: A 52-year-old female with past medical history positive for atrial fibrillation, history hypertension who came to the hospital complaining of chest pain and palpitations. Dr. Yoselin Mendez is her service mechanic. REVIEW OF SYSTEMS: CARDIOVASCULAR: She did have chest pain when she came and palpitations. RESPIRATORY: She did have shortness of breath when she had palpitations but none now. No cough. GASTROINTESTINAL: No nausea, no vomiting or diarrhea. GENITOURINARY: No frequency, no dysuria. ALLERGIES: TETRACYCLINE, CEFACLOR, SULFA MEDICATIONS, TETRACYCLINES AND IODINE. SOCIAL HISTORY: She does not smoke and she does not drink. PAST MEDICAL HISTORY: Atrial fibrillation and hypertension. PHYSICAL EXAMINATION: VITAL SIGNS: Blood pressure is going to 141/78 temperature is 97 degrees, heart rate 64 per minute, respiratory 14 per minute. Oxygen saturation 97%. HEART: Shows regular rhythm. No murmur. No extra sounds. LUNGS: Clear bilaterally. ABDOMEN: Soft. Nontender. Nondistended. No visceromegaly. EXTREMITIES: Show no evidence of cyanosis, edema or trauma. On the BMP, sodium 43, potassium 3.5, chloride 109. CO2 26. BUN 13, creatinine 0.04. Glucose 87. CBC: White blood count 11.8, hemoglobin 12.3, hemoglobin 37.1, platelet count 348,000. PT 21.0. INR 1.96. PTT 45.7. AST 12, ALT 14. Total bilirubin 0.4, alkaline phosphatase 89. FINAL IMPRESSION: 1. Paroxysmal atrial fibrillation in normal sinus rhythm right now. 2. Chest pain. 3. Hypertension. PLAN OF TREATMENT: Going to continue aspirin 81 mg daily. Morphine 2 mg IV q.3 h. Zofran 4 mg IV q.4 h. as needed. Cardizem 180 mg daily. Amiodarone 200 mg twice a day. Xarelto 20 mg daily. Furosemide 40 mg daily. Metoprolol [address] Yoselin Mendez is the service mechanic who is going to be seeing her. She is going to continue telemetry. The last EKG showed normal sinus rhythm, no evidence of . All the patient's troponins are negative. Job#: [id number]
[2017-11-18] MEDS: PREDNISONE 10 MG TAB PO SCH (16:04)
[2017-11-18] MEDS: SODIUM CHLORIDE 0.9% 1000ML 1,000 ML IV SCH ×2 (16:04→21:14)
[2017-11-18] MEDS: FAMOTIDINE 20 MG TAB PO SCH (16:05)
--- NOTE | 2017-11-18 16:18 | Consultation ---
DATE OF CONSULTATION: November 18, 2017 CHIEF COMPLAINT: Chest pain. HISTORY OF PRESENT ILLNESS: Ms. Moran is a 52-year-old woman who follows with Dr. Mendez in clinic. She presents following onset of chest discomfort and dyspnea on exertion while at home. The patient felt she had an episode of atrial fibrillation with rapid ventricular response associated to the event. She has had a history of symptomatic atrial fibrillation spells in the past, and has been referred to cardiac electrophysiology for further evaluation. Other medical problems include HCV, sick sinus syndrome, status post pacemaker placement, hypertension, dyslipidemia. In the hospital today, she is in normal sinus rhythm. Mild hypertension is being addressed with oral antihypertensives, which are being up titrated. She continues to complain of active chest discomfort, which worsens with meals as well as with ambulation with associated dyspnea on exertion. She does describe her chest pain pattern to be somewhat different from before. She has had a stress test within the last 6 months, presumably within normal limits. REVIEW OF SYSTEMS: Twelve systems reviewed and negative except for as noted above. ALLERGIES: PENICILLIN, SULFA, TETRACYCLINE, CEFACLOR, IODINE, AND TETRACYCLINE. SOCIAL HISTORY: No smoking, alcohol or drugs. FAMILY HISTORY: Significant for heart disease. PHYSICAL EXAMINATION VITAL SIGNS: Temperature 97.6, heart rate 64, respiratory rate 14 and blood pressure 141/78, O2 sat 97% on room air. GENERAL: In no acute distress. Alert. NECK: No JVD. CHEST: Clear to auscultation. CARDIOVASCULAR: Regular rate and rhythm. Normal S1 and S2. No S3, no S4. No murmurs or rubs. ABDOMEN: Soft and nontender. Nondistended. EXTREMITIES: No cyanosis, clubbing or edema. CARDIOVASCULAR MEDICATIONS 1. Metoprolol succinate 200 mg daily. 2. Furosemide 40 mg daily. 3. Amiodarone 200 mg b.i.d. 4. Aspirin 81 mg daily, 5. Diltiazem 120 mg, increased to 180 mg daily. 6. Xarelto placed on hold since admission. STUDIES: Reviewed. White blood cells 11.8, hemoglobin 12.3, platelets 348,000. INR 1.9, sodium 143, potassium 3.5, chloride 109, bicarbonate 26, BUN 13, creatinine 0.74, glucose 87, calcium 8.8, total bilirubin 0.4, AST 12, ALT 14, alkaline phosphatase 89. Serial cardiac enzymes negative. BNP 70. Total protein 6.6. Albumin 3.3. Triglycerides 106. Total cholesterol 168. LDL 101. HDL of 46. TELEMETRY: Normal sinus rhythm. ASSESSMENT 1. Chest pain and dyspnea on exertion, concerning for angina pectoris. 2. Paroxysmal atrial fibrillation. 3. Hypertension, uncontrolled. 4. Dyslipidemia. 5. Acute cardiovascular disease. 6. Iodine allergy. RECOMMENDATIONS: 1. Hold Xarelto. 2. Discussed alternatives for further evaluation for the patient which includes coronary angiography and possible coronary intervention. She has not had an MA. However, her symptoms have some exertional nature, which is somewhat concerning. Will initiate premedication for iodine allergy and keep the patient n.p.o. after midnight. Dr. Mendez will round tomorrow as her primary treating elocution teacher. Will defer final decision for cardiac catheterization to Dr. Mendez's expertise. 3. Continue rest of cardiovascular medications with the following change: Cardizem increased from 120 to 180 mg daily. Job#: [id number]
[2017-11-18 16:31] LABS: CREATINE KINASE 55 IU/L (29-168)
[2017-11-18] MEDS ORDERED: RIVAROXABAN 20 MG TABLET PO SCH (17:00)
[2017-11-19] VITALS (7 sets, daily range): BP systolic 129–159; BP diastolic 60–94
[2017-11-19] MEDS: MORPHINE SULFATE 2 MG/ML SYR IV PRN ×7 (00:39→18:44)
[2017-11-19] MEDS: SODIUM CHLORIDE 0.9% 1000ML 1,000 ML IV SCH ×2 (04:00→13:14)
[2017-11-19 06:52] LABS: BASOPHILS % 0.1 % (0.0-1.0); HEMATOCRIT 37.8 % (34.2-44.1); HEMOGLOBIN 12.7 g/dL (12.0-16.0); LYMPHOCYTES # (AUTO) 1.4 (1.0-3.2); LYMPHOCYTES % 12.2 % (18.0-39.1); MEAN CORPUSCULAR HEMOGLOBIN 31.4 pg (28-32); MEAN CORPUSCULAR HGB CONC 33.6 g/dL (31-35); MEAN CORPUSCULAR VOLUME 93.6 fL (81-99); MONOCYTES # (AUTO) 0.2 (0.2-0.8); MONOCYTES % 1.7 % (4.4-11.3); NEUTROPHILS # (AUTO) 9.6 (2.1-6.9); NEUTROPHILS % 85.6 % (38.7-80.0); PLATELET COUNT 360 x10e3/uL (140-360); RED BLOOD COUNT 4.04 x10e6/uL (3.6-5.1); RED CELL DISTRIBUTION WIDTH 13.1 % (11.7-14.4)
[2017-11-19 07:04] LABS: INR 1.08; PROTHROMBIN TIME 13.2 seconds (11.9-14.5)
[2017-11-19 07:05] LABS: PARTIAL THROMBOPLASTIN TIME 31.8 seconds (23.8-35.5)
[2017-11-19 07:17] LABS: ANION GAP 12.4 mmol/L (8-16); BLOOD UREA NITROGEN 19 mg/dL (7-26); BUN/CREATININE RATIO 22 (6-25); CALCIUM 9.2 mg/dL (8.4-10.2); CARBON DIOXIDE 25 mmol/L (22-29); CHLORIDE 104 mmol/L (98-107); CREATININE, SERUM 0.87 mg/dL (0.57-1.11); EST GLOMERULAR FILTRATION RATE > 60 ML/MIN (60-); GLUCOSE 140 mg/dL (74-118); POTASSIUM 3.4 mmol/L (3.5-5.1); SODIUM 138 mmol/L (136-145)
[2017-11-19] MEDS: FAMOTIDINE 20 MG TAB PO SCH ×2 (07:30→17:05)
[2017-11-19] MEDS: ASPIRIN 81 MG ENTERIC COATED PO SCH (08:51)
[2017-11-19] MEDS: DILTIAZEM HCL 180 MG CAP CD PO SCH ×2 (08:52→19:35)
[2017-11-19] MEDS: PREDNISONE 10 MG TAB PO SCH (08:53)
[2017-11-19] MEDS: METOPROLOL SUCCINATE 50 MG TAB XL PO SCH ×2 (08:53→19:35)
[2017-11-19] MEDS: FUROSEMIDE 40 MG TAB PO SCH ×2 (08:53→19:35)
[2017-11-19] MEDS: AMIODARONE HCL 200 MG TAB PO SCH ×2 (08:53→17:05)
--- NOTE | 2017-11-19 09:40 | Progress Note ---
DATE: November 19, 2017 Ms. Moran is a 52-year-old female with a history of paroxysmal atrial fibrillation and hypertension, who came to the emergency room complaining of chest pain and palpitations. She was seen by the back up scan coordinator, and she is going to go for an angiogram today. PHYSICAL EXAMINATION GENERAL: Today, she is awake and alert. VITALS: Temperature is 98.3, blood pressure 148/87. HEART: Regular rate. LUNGS: Clear to auscultation. ABDOMEN: Soft. LABS: On the blood work, white count is 11.19, hemoglobin 12.7, hematocrit 37.8. Potassium 3.4, creatinine 0.87, glucose 140. Urine shows 6-10 white blood cells. Urine culture is pending. Chest x-ray shows no edema or consolidation. ASSESSMENT AND PLAN 1. Paroxysmal atrial fibrillation. 2. Chest pain. 3. Hypertension. 4. Hyperlipidemia. The plan at the present time is the patient is on metoprolol, furosemide, amiodarone, aspirin, diltiazem. The Xarelto was placed on hold. The patient is going to go for an angiogram today. All of this was discussed with the patient and the family. All questions were answered to satisfaction. Job#: [id number]
--- NOTE | 2017-11-19 20:12 | Progress Note ---
DATE: November 19, 2017 CARDIOLOGY PROGRESS NOTE SUBJECTIVE: The patient denies chest pain or shortness of breath. She was n.p.o. for possible angiogram. OBJECTIVE VITAL SIGNS: Temperature 98.1 degrees, pulse 66, respiratory rate 18, blood pressure 136/69, oxygen saturation 97% on room air. GENERAL: Awake, alert and in no acute distress. LUNGS: Clear to auscultation bilaterally. No wheezes or crackles. CARDIOVASCULAR: Normal rate, regular rhythm. No murmurs. Normal S1 and S2. ABDOMEN: Soft and nontender. EXTREMITIES: No edema. CARDIAC MEDICATIONS: 1. Diltiazem 180 mg p.o. daily. 2. Metoprolol succinate 200 mg p.o. daily. 3. Furosemide 40 mg p.o. daily. 4. Aspirin 81 mg p.o. daily. 5. Amiodarone 200 mg p.o. b.i.d. LABORATORY DATA: WBC 11.19, hemoglobin 12.7, hematocrit 37.4, platelets 360,000, sodium 138, potassium 3.4, chloride 104, CO2 of 25, BUN 19, creatinine 0.87, troponin less than 0.001. TELEMETRY: Normal sinus rhythm. IMPRESSION 1. Chest pain. 2. Paroxysmal atrial fibrillation. 3. Hypertension. 4. Dyslipidemia. 5. Iodine allergy. RECOMMENDATIONS: On discussion with the patient, her chest pain has been in the setting of her palpitations. She has ruled out for myocardial infarction and nuclear stress test performed within the last year was without evidence of ischemia. She is scheduled to see electrophysiology on . Resume Xarelto. Increase Diltiazem XR to 240 mg p.o. daily. Continue current cardiac medications otherwise . If she continues to have chest pain after EP evaluation and control of her palpitations, we will proceed with cardiac catheterization at that time. Continue current cardiac medications otherwise. Thank you for this consult. We will continue to follow. Job#: [id number]
== END 2017-11-19 19:50 | disposition home or self-care (01) ==
LOC: ER 21:19 → ERHOLD 11-18 → MED/SURG 11-18 01:42
PROVIDERS: ADMIT Internal Medicine; ATTEND Internal Medicine
DX: I48.0 Paroxysmal atrial fibrillation (principal); I10 Essential (primary) hypertension; Z88.0 Allergy status to penicillin; Z88.2 Allergy status to sulfonamides; Z88.8 Allergy status to other drugs, medicaments and biological substances; E78.5 Hyperlipidemia, unspecified; I49.5 Sick sinus syndrome; Z95.0 Presence of cardiac pacemaker; Z79.01 Long term (current) use of anticoagulants; R07.9 Chest pain, unspecified
CPT/HCPCS: 36415 ×2; 71045; 80048; 80053; 80061; 81001; 82550; 82553; 83735; 83880; 84484; 85025 ×2; 85610 ×2; 85730 ×2; 87086; 93005; 99284; G0378 ×2; J2270 ×3; J2405 ×2; J7030 ×2

== ENCOUNTER 2020-12-01 13:42 | Inpatient (IN) | payer MEDICARE ==
[~2020-12-01] VITALS: Ht 162.6 cm; Wt 79.4 kg
[~2020-12-01 13:42] MED LIST changes: +LEXAPRO10 MG PO
[2020-12-01] MEDS ORDERED: ASPIRIN 81 MG CHEW TAB PO ONE (14:00)
[2020-12-01 14:27] LABS: BASOPHILS # (AUTO) 0.1 (0.0-0.1); BASOPHILS % 0.6 % (0.0-1.0); EOSINOPHILS # (AUTO) 0.2 (0.0-0.4); EOSINOPHILS % 1.5 % (0.0-6.0); HEMATOCRIT 29.4 % (34.2-44.1); HEMOGLOBIN 7.8 g/dL (12.0-16.0); LYMPHOCYTES # (AUTO) 3.1 (1.0-3.2); LYMPHOCYTES % 26.2 % (18.0-39.1); MEAN CORPUSCULAR HEMOGLOBIN 18.8 pg (28-32); MEAN CORPUSCULAR HGB CONC 26.5 g/dL (31-35); MEAN CORPUSCULAR VOLUME 70.8 fL (81-99); MONOCYTES # (AUTO) 0.8 (0.2-0.8); MONOCYTES % 6.5 % (4.4-11.3); NEUTROPHILS # (AUTO) 7.6 (2.1-6.9); NEUTROPHILS % 64.9 % (38.7-80.0); PLATELET COUNT 441 x10e3/uL (140-360); RED BLOOD COUNT 4.15 x10e6/uL (3.6-5.1); RED CELL DISTRIBUTION WIDTH 19.3 % (11.7-14.4)
[2020-12-01 14:33] LABS: CLARITY,URINE SL CLOUDY (CLEAR); COLOR,URINE STRAW (YELLOW); LEUKOCYTE ESTERASE ,URINE TRACE (NEGATIVE); NITRITE,URINE NEGATIVE (NEGATIVE); PROTEIN,URINE DIPSTICK 1+ (NEGATIVE)
[2020-12-01 14:34] LABS: KETONES,URINE NEGATIVE (NEGATIVE); URINE UROBILINOGEN 0.2 mg/dL (0.2 - 1)
[2020-12-01 14:39] LABS: INR 2.92; PROTHROMBIN TIME 31.9 seconds (11.9-14.5)
[2020-12-01 14:40] LABS: PARTIAL THROMBOPLASTIN TIME 57.5 seconds (23.8-35.5)
[2020-12-01 14:41] LABS: BACTERIA,URINE MANY /HPF; RBC,URINE 21-50 /HPF (0-5)
[2020-12-01 14:42] LABS: EPITHELIAL CELLS,URINE FEW /LPF
[2020-12-01 14:49] LABS: ALANINE AMINOTRANSFERASE 8 IU/L (0-55); ALBUMIN/GLOBULIN RATIO 1.1 (0.8-2.0); ALKALINE PHOSPHATASE 132 IU/L (40-150); ANION GAP 16.7 mmol/L (8-16); BLOOD UREA NITROGEN 15 mg/dL (7-26); BUN/CREATININE RATIO 19 (6-25); CALCIUM 8.9 mg/dL (8.4-10.2); CARBON DIOXIDE 19 mmol/L (22-29); CHLORIDE 107 mmol/L (98-107); CREATINE KINASE 19 IU/L (29-168); CREATININE, SERUM 0.79 mg/dL (0.57-1.11); EST GLOMERULAR FILTRATION RATE 75 ML/MIN (60-); GLUCOSE 108 mg/dL (74-118); POTASSIUM 3.7 mmol/L (3.5-5.1); SODIUM 139 mmol/L (136-145)
[2020-12-01] MEDS ORDERED: ONDANSETRON HCL INJ 2MG/ML 2ML 2 MG/ML VIAL IV STA (16:45)
[2020-12-01] MEDS ORDERED: MORPHINE SULFATE INJ 4 MG/ML INJ 1ML IV STA (16:45)
[2020-12-01] MEDS ORDERED: LEVOFLOXACIN 500MG/D5W 100ML 100 ML IV ONE (17:00)
[2020-12-01 20:00] VITALS: BP 155/102
[2020-12-01 20:25] VITALS: BP 155/102
[2020-12-01 20:25] LABS: BASOPHILS # (AUTO) 0.1 (0.0-0.1); BASOPHILS % 0.5 % (0.0-1.0); EOSINOPHILS # (AUTO) 0.2 (0.0-0.4); EOSINOPHILS % 1.9 % (0.0-6.0); HEMATOCRIT 27.1 % (34.2-44.1); HEMOGLOBIN 7.2 g/dL (12.0-16.0); LYMPHOCYTES # (AUTO) 3.1 (1.0-3.2); LYMPHOCYTES % 28.1 % (18.0-39.1); MEAN CORPUSCULAR HEMOGLOBIN 18.9 pg (28-32); MEAN CORPUSCULAR HGB CONC 26.6 g/dL (31-35); MEAN CORPUSCULAR VOLUME 71.1 fL (81-99); MONOCYTES # (AUTO) 0.8 (0.2-0.8); MONOCYTES % 6.8 % (4.4-11.3); NEUTROPHILS # (AUTO) 6.8 (2.1-6.9); NEUTROPHILS % 62.3 % (38.7-80.0); PLATELET COUNT 374 x10e3/uL (140-360); RED BLOOD COUNT 3.81 x10e6/uL (3.6-5.1)
[2020-12-01 20:36] LABS: CREATINE KINASE 22 IU/L (29-168)
[2020-12-01 21:36] LABS: FERRITIN 4.76 ng/mL (4.63-204.00)
[2020-12-01] MEDS ORDERED: ACETAMINOPHEN 325 MG TAB PO PRN (21:45)
[2020-12-01] MEDS: MORPHINE SULFATE INJ 2 MG/ML SYR IV PRN (21:46)
[2020-12-01] MEDS: ONDANSETRON HCL INJ 2MG/ML 2ML 2 MG/ML VIAL IV PRN (21:46)
[2020-12-01] MEDS ORDERED: SODIUM CHLORIDE 0.9% 250ML 1,000 ML ONE (22:44)
[2020-12-01 22:52] VITALS: BP 152/98
[2020-12-01 23:07] VITALS: BP 163/105
[2020-12-01] MEDS ORDERED: CLONIDINE HCL0.1 MG PO (23:15)
[2020-12-01 23:22] VITALS: BP 161/99
[2020-12-01 23:30] VITALS: BP 160/110
[2020-12-01] MEDS ORDERED: CLONIDINE HCL 0.1 MG TAB PO ONE (23:30)
[2020-12-01] MEDS ORDERED: HYDRALAZINE HCL 20 MG/ML VIAL IV PRN (23:30)
[2020-12-02] VITALS (9 sets, daily range): BP systolic 99–152; BP diastolic 60–95
[2020-12-02] MEDS ORDERED: CYANOCOBALAMIN INJ 1,000 MCG/ML VIAL IM ONE
[2020-12-02 01:29] LABS: HEMATOCRIT 25.1 % (34.2-44.1)
[2020-12-02 01:31] LABS: HEMOGLOBIN 6.8 g/dL (12.0-16.0)
[2020-12-02 01:43] LABS: CREATINE KINASE 38 IU/L (29-168)
[2020-12-02] MEDS: MORPHINE SULFATE INJ 2 MG/ML SYR IV PRN ×5 (03:44→22:30)
[2020-12-02] MEDS: ONDANSETRON HCL INJ 2MG/ML 2ML 2 MG/ML VIAL IV PRN (03:44)
[2020-12-02 05:23] LABS: ALBUMIN 3.6 g/dL (3.5-5.0); ALBUMIN/GLOBULIN RATIO 1.1 (0.8-2.0); ANION GAP 14.9 mmol/L (8-16); CALCIUM 8.8 mg/dL (8.4-10.2); CREATININE, SERUM 0.75 mg/dL (0.57-1.11); POTASSIUM 3.9 mmol/L (3.5-5.1)
[2020-12-02 05:26] LABS: INR 1.53; PROTHROMBIN TIME 19.2 seconds (11.9-14.5)
[2020-12-02] MEDS ORDERED: CLONIDINE HCL 0.1 MG TAB PO SCH (09:00)
[2020-12-02] MEDS: CLONAZEPAM 1 MG TAB PO SCH ×2 (09:00→18:26)
[2020-12-02] MEDS ORDERED: FOSFOMYCIN TROMETHAMINE 3 GM PACKET PO ONE ×2 (09:00→16:45)
[2020-12-02] MEDS: METOPROLOL SUCCINATE 50 MG TAB XL PO SCH (09:00)
[2020-12-02] MEDS: DILTIAZEM HCL ER 120 MG CAP PO SCH (10:48)
[2020-12-02] MEDS: ATORVASTATIN 10 MG TAB PO SCH (10:55)
[2020-12-02] MEDS ORDERED: CLONIDINE HCL 0.1 MG TAB PO PRN (11:15)
[2020-12-02] MEDS ORDERED: PEG (High)/E-LYTE SOLN 4,000 ML BTL PO ONE (12:30)
[2020-12-02 15:30] LABS: BASOPHILS % 0.6 % (0.0-1.0); EOSINOPHILS # (AUTO) 0.2 (0.0-0.4); EOSINOPHILS % 2.3 % (0.0-6.0); HEMATOCRIT 32.6 % (34.2-44.1); HEMOGLOBIN 9.2 g/dL (12.0-16.0); LYMPHOCYTES # (AUTO) 2.3 (1.0-3.2); LYMPHOCYTES % 35.5 % (18.0-39.1); MEAN CORPUSCULAR HEMOGLOBIN 21.1 pg (28-32); MEAN CORPUSCULAR HGB CONC 28.2 g/dL (31-35); MEAN CORPUSCULAR VOLUME 74.6 fL (81-99); MONOCYTES # (AUTO) 0.4 (0.2-0.8); MONOCYTES % 6.7 % (4.4-11.3); NEUTROPHILS # (AUTO) 3.6 (2.1-6.9); NEUTROPHILS % 54.7 % (38.7-80.0); PLATELET COUNT 301 x10e3/uL (140-360); RED BLOOD COUNT 4.37 x10e6/uL (3.6-5.1); RED CELL DISTRIBUTION WIDTH 19.8 % (11.7-14.4)
[2020-12-02 15:43] LABS: INR 1.31
[2020-12-02 15:44] LABS: PARTIAL THROMBOPLASTIN TIME 35.9 seconds (23.8-35.5)
[2020-12-02] MEDS ORDERED: PHYTONADIONE 10 MG/ML AMP IV ONE (17:15)
[2020-12-02] MEDS ORDERED: PHYTONADIONE 10MG/ML 20 MG in SODIUM CHLORIDE 0.9% 50ML 50 ML IV ONE ×2 (17:45→20:00)
[2020-12-02] MEDS: IRON SUCROSE 100 MG in SODIUM CHLORIDE 0.9% 100 ML 100 ML IV SCH (18:26)
[2020-12-02] MEDS: CYANOCOBALAMIN INJ 1,000 MCG/ML VIAL IM SCH (21:46)
[2020-12-03] VITALS (8 sets, daily range): BP systolic 102–167; BP diastolic 71–110
[2020-12-03] MEDS: BISACODYL 5 MG TAB EC PO SCH ×3 (00:15→01:20)
[2020-12-03] MEDS: ONDANSETRON HCL INJ 2MG/ML 2ML 2 MG/ML VIAL IV PRN ×5 (00:40→22:15)
[2020-12-03] MEDS: MORPHINE SULFATE INJ 2 MG/ML SYR IV PRN ×5 (03:15→22:15)
[2020-12-03 05:43] LABS: BASOPHILS # (AUTO) 0.1 (0.0-0.1); BASOPHILS % 0.5 % (0.0-1.0); EOSINOPHILS # (AUTO) 0.2 (0.0-0.4); EOSINOPHILS % 2.3 % (0.0-6.0); HEMATOCRIT 31.6 % (34.2-44.1); LYMPHOCYTES # (AUTO) 2.2 (1.0-3.2); LYMPHOCYTES % 23.1 % (18.0-39.1); MEAN CORPUSCULAR HEMOGLOBIN 21.1 pg (28-32); MEAN CORPUSCULAR HGB CONC 28.5 g/dL (31-35); MONOCYTES # (AUTO) 0.6 (0.2-0.8); MONOCYTES % 6.4 % (4.4-11.3); NEUTROPHILS # (AUTO) 6.5 (2.1-6.9); NEUTROPHILS % 67.4 % (38.7-80.0); PLATELET COUNT 292 x10e3/uL (140-360); RED BLOOD COUNT 4.27 x10e6/uL (3.6-5.1); RED CELL DISTRIBUTION WIDTH 19.8 % (11.7-14.4)
[2020-12-03 06:05] LABS: INR 1.68; PROTHROMBIN TIME 20.7 seconds (11.9-14.5)
[2020-12-03 06:20] LABS: ALBUMIN 3.7 g/dL (3.5-5.0); ALBUMIN/GLOBULIN RATIO 1.1 (0.8-2.0); ANION GAP 14.3 mmol/L (8-16); CALCIUM 9.2 mg/dL (8.4-10.2); CREATININE, SERUM 0.65 mg/dL (0.57-1.11); POTASSIUM 3.3 mmol/L (3.5-5.1)
[2020-12-03 06:36] LABS: HYPOCHROMASIA MODERATE; MICROCYTOSIS SLIGHT; PLATELET ESTIMATE ADEQUATE; PLATELET MORPHOLOGY COMMENT NORMAL; RBC MORPHOLOGY COMMENT ABNORMAL
[2020-12-03 06:37] LABS: ELLIPTOCYTE, RBC SLIGHT
[2020-12-03] MEDS ORDERED: POTASSIUM CHLORIDE 20 MEQ TAB CR PO ONE (08:45)
[2020-12-03] MEDS: CLONAZEPAM 1 MG TAB PO SCH ×2 (09:00→16:37)
[2020-12-03] MEDS: METOPROLOL SUCCINATE 50 MG TAB XL PO SCH (09:00)
[2020-12-03] MEDS: DILTIAZEM HCL ER 120 MG CAP PO SCH (09:00)
[2020-12-03] MEDS: ATORVASTATIN 10 MG TAB PO SCH (09:00)
[2020-12-03] MEDS: IRON SUCROSE 100 MG in SODIUM CHLORIDE 0.9% 100 ML 100 ML IV SCH (09:00)
[2020-12-03 10:24] LABS: HEMATOCRIT 34.1 % (34.2-44.1); HEMOGLOBIN 9.6 g/dL (12.0-16.0)
[2020-12-03] MEDS ORDERED: LIDOCAINE HCL 2% LOCAL INJ 5 ML SDV VIAL INJ ONE (12:39)
[2020-12-03] MEDS ORDERED: PROPOFOL IV EMULSION 10 MG/ML 20 ML VIAL ONE (12:39)
[2020-12-03] MEDS ORDERED: CLONIDINE HCL 0.2 MG TAB PO PRN (13:00)
[2020-12-03] MEDS ORDERED: FENTANYL CITRATE/PF 100MCG/2 ML INJ ONE (13:20)
[2020-12-03] MEDS ORDERED: MIDAZOLAM HCL 2 MG/2 ML VIAL ONE (13:20)
[2020-12-03] MEDS ORDERED: KETAMINE HCL INJ 50 MG/ML 10 ML VIAL ONE (13:20)
[2020-12-03] MEDS ORDERED: CLONIDINE HCL 0.1 MG TAB PO ONE (14:30)
[2020-12-03] MEDS ORDERED: PHYTONADIONE 10 MG/ML AMP SQ ONE (15:00)
[2020-12-03 16:50] LABS: HEMATOCRIT 30.9 % (34.2-44.1); HEMOGLOBIN 8.7 g/dL (12.0-16.0)
[2020-12-03] MEDS ORDERED: HYOSCYAMINE SULFATE 0.5 MG/ML INJ ONE (19:22)
[2020-12-03] MEDS: CYANOCOBALAMIN INJ 1,000 MCG/ML VIAL IM SCH (22:00)
[2020-12-04] VITALS (7 sets, daily range): BP systolic 121–141; BP diastolic 79–96
[2020-12-04] MEDS: MORPHINE SULFATE INJ 2 MG/ML SYR IV PRN ×4 (03:55→21:26)
[2020-12-04] MEDS: ONDANSETRON HCL INJ 2MG/ML 2ML 2 MG/ML VIAL IV PRN ×3 (03:55→13:00)
[2020-12-04 06:11] LABS: BASOPHILS # (AUTO) 0.1 (0.0-0.1); BASOPHILS % 0.6 % (0.0-1.0); EOSINOPHILS # (AUTO) 0.2 (0.0-0.4); EOSINOPHILS % 2.5 % (0.0-6.0); HEMATOCRIT 31.4 % (34.2-44.1); HEMOGLOBIN 8.9 g/dL (12.0-16.0); LYMPHOCYTES # (AUTO) 2.6 (1.0-3.2); LYMPHOCYTES % 33.2 % (18.0-39.1); MEAN CORPUSCULAR HEMOGLOBIN 21.3 pg (28-32); MEAN CORPUSCULAR HGB CONC 28.3 g/dL (31-35); MEAN CORPUSCULAR VOLUME 75.1 fL (81-99); MONOCYTES # (AUTO) 0.6 (0.2-0.8); NEUTROPHILS # (AUTO) 4.4 (2.1-6.9); NEUTROPHILS % 56.4 % (38.7-80.0); PLATELET COUNT 283 x10e3/uL (140-360); RED BLOOD COUNT 4.18 x10e6/uL (3.6-5.1); RED CELL DISTRIBUTION WIDTH 20.4 % (11.7-14.4)
[2020-12-04 06:24] LABS: INR 1.01; PROTHROMBIN TIME 13.9 seconds (11.9-14.5)
[2020-12-04 06:25] LABS: PARTIAL THROMBOPLASTIN TIME 40.6 seconds (23.8-35.5)
[2020-12-04 06:31] LABS: ANION GAP 11.5 mmol/L (8-16); CALCIUM 9.1 mg/dL (8.4-10.2); CREATININE, SERUM 0.69 mg/dL (0.57-1.11); POTASSIUM 3.5 mmol/L (3.5-5.1)
[2020-12-04] MEDS: IRON SUCROSE 100 MG in SODIUM CHLORIDE 0.9% 100 ML 100 ML IV SCH (09:50)
[2020-12-04] MEDS: CLONAZEPAM 1 MG TAB PO SCH ×2 (09:50→18:43)
[2020-12-04] MEDS: DILTIAZEM HCL ER 120 MG CAP PO SCH (09:50)
[2020-12-04] MEDS: ATORVASTATIN 10 MG TAB PO SCH (09:51)
[2020-12-04] MEDS: METOPROLOL SUCCINATE 50 MG TAB XL PO SCH (09:51)
[2020-12-04] MEDS: CYANOCOBALAMIN INJ 1,000 MCG/ML VIAL IM SCH (21:26)
[2020-12-05] VITALS (7 sets, daily range): BP systolic 119–151; BP diastolic 69–99
[2020-12-05] MEDS: MORPHINE SULFATE INJ 2 MG/ML SYR IV PRN ×4 (01:54→22:26)
[2020-12-05 06:04] LABS: BASOPHILS # (AUTO) 0.1 (0.0-0.1); BASOPHILS % 0.7 % (0.0-1.0); EOSINOPHILS # (AUTO) 0.3 (0.0-0.4); EOSINOPHILS % 3.1 % (0.0-6.0); HEMATOCRIT 33.3 % (34.2-44.1); HEMOGLOBIN 9.4 g/dL (12.0-16.0); LYMPHOCYTES # (AUTO) 3.2 (1.0-3.2); LYMPHOCYTES % 39.1 % (18.0-39.1); MEAN CORPUSCULAR HEMOGLOBIN 21.3 pg (28-32); MEAN CORPUSCULAR HGB CONC 28.2 g/dL (31-35); MEAN CORPUSCULAR VOLUME 75.3 fL (81-99); MONOCYTES # (AUTO) 0.6 (0.2-0.8); MONOCYTES % 6.8 % (4.4-11.3); NEUTROPHILS # (AUTO) 4.1 (2.1-6.9); NEUTROPHILS % 49.7 % (38.7-80.0); PLATELET COUNT 307 x10e3/uL (140-360); RED BLOOD COUNT 4.42 x10e6/uL (3.6-5.1); RED CELL DISTRIBUTION WIDTH 21.2 % (11.7-14.4)
[2020-12-05 06:18] LABS: INR 0.85; PROTHROMBIN TIME 12.1 seconds (11.9-14.5)
[2020-12-05 06:19] LABS: PARTIAL THROMBOPLASTIN TIME 36.9 seconds (23.8-35.5)
[2020-12-05] MEDS: IRON SUCROSE 100 MG in SODIUM CHLORIDE 0.9% 100 ML 100 ML IV SCH (09:54)
[2020-12-05] MEDS: ATORVASTATIN 10 MG TAB PO SCH (09:55)
[2020-12-05] MEDS: DILTIAZEM HCL ER 120 MG CAP PO SCH (09:55)
[2020-12-05] MEDS: METOPROLOL SUCCINATE 50 MG TAB XL PO SCH (09:56)
[2020-12-05] MEDS: ONDANSETRON HCL INJ 2MG/ML 2ML 2 MG/ML VIAL IV PRN (09:56)
[2020-12-05] MEDS: CLONAZEPAM 1 MG TAB PO SCH ×2 (10:14→16:54)
[2020-12-05] MEDS: CYANOCOBALAMIN INJ 1,000 MCG/ML VIAL IM SCH (21:14)
[2020-12-05] MEDS ORDERED: DONNATAL/LIDOCAINE/MAALOX 30 ML SUSP PO PRN (23:00)
[2020-12-05] MEDS ORDERED: BELLADONNA ALK/PHENOBARBITAL 5 ML UDC PO PRN (23:15)
[2020-12-05] MEDS ORDERED: MAGNESIUM/ALUMINUM/SIMETHICONE 30 ML UDC PO PRN (23:15)
[2020-12-05] MEDS ORDERED: LIDOCAINE VISC 2% SOLN 15 ML UDC PO PRN (23:15)
[2020-12-06] VITALS: BP 152/97
[2020-12-06] MEDS: TRAMADOL HCL 50 MG TAB PO PRN ×2 (02:15→08:33)
[2020-12-06 04:00] VITALS: BP 139/90
[2020-12-06 05:00] LABS: BASOPHILS # (AUTO) 0.1 (0.0-0.1); BASOPHILS % 0.5 % (0.0-1.0); EOSINOPHILS # (AUTO) 0.3 (0.0-0.4); EOSINOPHILS % 3.2 % (0.0-6.0); HEMATOCRIT 34.1 % (34.2-44.1); HEMOGLOBIN 9.6 g/dL (12.0-16.0); LYMPHOCYTES # (AUTO) 3.1 (1.0-3.2); LYMPHOCYTES % 31.8 % (18.0-39.1); MEAN CORPUSCULAR HEMOGLOBIN 21.2 pg (28-32); MEAN CORPUSCULAR HGB CONC 28.2 g/dL (31-35); MEAN CORPUSCULAR VOLUME 75.4 fL (81-99); MONOCYTES # (AUTO) 0.7 (0.2-0.8); MONOCYTES % 7.4 % (4.4-11.3); NEUTROPHILS # (AUTO) 5.6 (2.1-6.9); NEUTROPHILS % 56.7 % (38.7-80.0); PLATELET COUNT 330 x10e3/uL (140-360); RED BLOOD COUNT 4.52 x10e6/uL (3.6-5.1); RED CELL DISTRIBUTION WIDTH 21.7 % (11.7-14.4)
[2020-12-06 05:25] LABS: ANION GAP 9.7 mmol/L (8-16); CALCIUM 9.1 mg/dL (8.4-10.2); CREATININE, SERUM 0.7 mg/dL (0.57-1.11); POTASSIUM 3.7 mmol/L (3.5-5.1)
[2020-12-06] MEDS ORDERED: PANTOPRAZOLE SOD 40 MG TABEC PO SCH (07:30)
[2020-12-06 07:40] VITALS: BP 145/101
[2020-12-06 07:55] VITALS: BP 145/101
[2020-12-06] MEDS: CLONAZEPAM 1 MG TAB PO SCH (08:31)
[2020-12-06] MEDS: DILTIAZEM HCL ER 120 MG CAP PO SCH (08:31)
[2020-12-06] MEDS: METOPROLOL SUCCINATE 50 MG TAB XL PO SCH (08:32)
[2020-12-06] MEDS: ATORVASTATIN 10 MG TAB PO SCH (08:32)
[2020-12-06 12:00] VITALS: BP 143/92
[2020-12-06] MEDS ORDERED: MORPHINE SULFATE INJ 2 MG/ML SYR IV STA (14:13)
[2020-12-06] MEDS ORDERED: OMEPRAZOLE40 MG PO (14:20)
[2020-12-06] MEDS ORDERED: ULTRAM 50MG50 MG PO (14:20)
[2020-12-06] MEDS ORDERED: SUCRALFATE1 GM PO (14:20)
== END 2020-12-06 14:57 | disposition home or self-care (01) | DRG 368 ==
LOC: ER 14:36 → ERHOLD 16:58 → MED/SURG2 20:20
PROVIDERS: ADMIT Internal Medicine; ATTEND Internal Medicine
PROC: 30233K1 Transfusion of Nonautologous Frozen Plasma into Peripheral Vein, Percutaneous Approach (ICD-10-PCS; 2020-12-01)
PROC: 30233N1 Transfusion of Nonautologous Red Blood Cells into Peripheral Vein, Percutaneous Approach (ICD-10-PCS; 2020-12-02)
PROC: 0DB98ZX Excision of Duodenum, Via Natural or Artificial Opening Endoscopic, Diagnostic (ICD-10-PCS; 2020-12-03)
PROC: 0DBN8ZX Excision of Sigmoid Colon, Via Natural or Artificial Opening Endoscopic, Diagnostic (ICD-10-PCS; 2020-12-03)
PROC: 0D758ZZ Dilation of Esophagus, Via Natural or Artificial Opening Endoscopic (ICD-10-PCS; principal; 2020-12-03 18:46)
PROC: 0DB78ZX Excision of Stomach, Pylorus, Via Natural or Artificial Opening Endoscopic, Diagnostic (ICD-10-PCS; 2020-12-03 18:46)
DX: K20.91 Esophagitis, unspecified with bleeding (principal); K25.4 Chronic or unspecified gastric ulcer with hemorrhage; N39.0 Urinary tract infection, site not specified; I48.0 Paroxysmal atrial fibrillation; E78.5 Hyperlipidemia, unspecified; E66.9 Obesity, unspecified; Z68.30 Body mass index [BMI] 30.0-30.9, adult; K22.2 Esophageal obstruction; K31.9 Disease of stomach and duodenum, unspecified; K44.9 Diaphragmatic hernia without obstruction or gangrene; K63.5 Polyp of colon; K52.9 Noninfective gastroenteritis and colitis, unspecified; D51.0 Vitamin B12 deficiency anemia due to intrinsic factor deficiency; E03.9 Hypothyroidism, unspecified; Z87.891 Personal history of nicotine dependence; Z95.0 Presence of cardiac pacemaker; Z86.19 Personal history of other infectious and parasitic diseases; D50.9 Iron deficiency anemia, unspecified; Z79.01 Long term (current) use of anticoagulants; Z88.0 Allergy status to penicillin; Z88.2 Allergy status to sulfonamides; Z88.8 Allergy status to other drugs, medicaments and biological substances; Z20.822 Contact with and (suspected) exposure to COVID-19
CPT/HCPCS: 36415; 43239; 45378; 70450; 71045; 72125; 76700; 78227; 80048; 80053; 81001; 82550; 82553; 82607; 82728; 82746; 83010; 83540; 83615; 83735; 83880; 84466; 84484; 85014; 85018; 85025; 85045; 85379; 85384; 85610; 85730; 86850; 86900; 86920; 87086; 87521; 88305; 88312; 93005; 93306; 99284; A9537; J1756; J1956; J1980; J2001; J2250; J2270; J2405; J3010; J3420; J3430; J7050; P9016; P9017; U0002

== ENCOUNTER 2021-05-29 11:52 | Emergency (ER) | payer MEDICARE ==
[~2021-05-29] VITALS: Ht 162.6 cm; Wt 79.4 kg
[~2021-05-29 11:52] MED LIST changes: +CLONIDINE HCL0.1 MG PO; +SUCRALFATE1 GM PO
[2021-05-29] MEDS ORDERED: KETOROLAC TROMETHAMINE 60 MG/2 ML VIAL IM ONE (13:00)
[2021-05-29] MEDS ORDERED: HALOPERIDOL LACTATE 5 MG/ML VIAL IV ONE (14:15)
[2021-05-29] MEDS ORDERED: HALOPERIDOL LACTATE 5 MG/ML VIAL IM ONE (14:30)
== END 2021-05-29 14:51 | disposition home or self-care (01) ==
LOC: ER 11:59
DX: M54.50 Low back pain, unspecified (principal); G89.29 Other chronic pain; I10 Essential (primary) hypertension; E78.5 Hyperlipidemia, unspecified; K21.9 Gastro-esophageal reflux disease without esophagitis; B19.20 Unspecified viral hepatitis C without hepatic coma; E03.9 Hypothyroidism, unspecified; F31.9 Bipolar disorder, unspecified; Z95.0 Presence of cardiac pacemaker
CPT/HCPCS: 72131; 99283; J1630

== ENCOUNTER 2021-07-26 06:14 | Emergency (ER) | payer MEDICARE, OTHER ==
[~2021-07-26] VITALS: Ht 162.6 cm; Wt 79.4 kg
[2021-07-26 06:53] LABS: BASOPHILS # (AUTO) 0.1 (0.0-0.1); BASOPHILS % 0.3 % (0.0-1.0); EOSINOPHILS # (AUTO) 0.2 (0.0-0.4); EOSINOPHILS % 1.1 % (0.0-6.0); HEMATOCRIT 43.4 % (34.2-44.1); HEMOGLOBIN 13.7 g/dL (12.0-16.0); LYMPHOCYTES # (AUTO) 3.6 (1.0-3.2); MEAN CORPUSCULAR HEMOGLOBIN 26.6 pg (28-32); MEAN CORPUSCULAR HGB CONC 31.6 g/dL (31-35); MEAN CORPUSCULAR VOLUME 84.1 fL (81-99); MONOCYTES # (AUTO) 1.3 (0.2-0.8); MONOCYTES % 9.1 % (4.4-11.3); NEUTROPHILS # (AUTO) 9.3 (2.1-6.9); PLATELET COUNT 386 x10e3/uL (140-360); RED BLOOD COUNT 5.16 x10e6/uL (3.6-5.1); RED CELL DISTRIBUTION WIDTH 15.7 % (11.7-14.4)
[2021-07-26] MEDS ORDERED: KETOROLAC TROMETHAMINE 30 MG/ML VIAL IV ONE (07:00)
[2021-07-26 07:06] LABS: ALBUMIN 3.7 g/dL (3.5-5.0); ALBUMIN/GLOBULIN RATIO 0.9 (0.8-2.0); ANION GAP 13.5 mmol/L (8-16); CALCIUM 9.7 mg/dL (8.4-10.2); CREATININE, SERUM 0.86 mg/dL (0.57-1.11); POTASSIUM 3.5 mmol/L (3.5-5.1)
[2021-07-26 07:12] LABS: CREATINE KINASE MB 0.5 ng/mL (0-5.0)
[2021-07-26] MEDS ORDERED: AZITHROMYCIN250 MG PO (08:17)
[2021-07-26] MEDS ORDERED: Morphine 4mg Syringe 4 MG/ML INJ IV NR (08:30)
== END 2021-07-26 08:55 | disposition home or self-care (01) ==
LOC: ER 06:28
DX: S22.43XA Multiple fractures of ribs, bilateral, initial encounter for closed fracture (principal); S92.511A Displaced fracture of proximal phalanx of right lesser toe(s), initial encounter for closed fracture; W01.190A Fall on same level from slipping, tripping and stumbling with subsequent striking against furniture, initial encounter; Y93.01 Activity, walking, marching and hiking; Y92.008 Other place in unspecified non-institutional (private) residence as the place of occurrence of the external cause; I10 Essential (primary) hypertension; E78.5 Hyperlipidemia, unspecified; K21.9 Gastro-esophageal reflux disease without esophagitis; I48.91 Unspecified atrial fibrillation; B19.20 Unspecified viral hepatitis C without hepatic coma; F31.9 Bipolar disorder, unspecified; E03.9 Hypothyroidism, unspecified; Z95.0 Presence of cardiac pacemaker
CPT/HCPCS: 36415; 71250; 73630; 80053; 82550; 82553; 84484; 85025; 93005; 99284; J1885; J2270

== ENCOUNTER 2021-11-05 19:13 | Inpatient (IN) | payer MEDICARE ==
[~2021-11-05] VITALS: Ht 160 cm; Wt 86.2 kg
[~2021-11-05 19:13] MED LIST changes: +AZITHROMYCIN250 MG PO
[2021-11-05 19:34] LABS: BASOPHILS # (AUTO) 0.1 (0.0-0.1); BASOPHILS % 0.3 % (0.0-1.0); HEMATOCRIT 47.4 % (34.2-44.1); HEMOGLOBIN 14.4 g/dL (12.0-16.0); LYMPHOCYTES # (AUTO) 2.3 (1.0-3.2); LYMPHOCYTES % 8.4 % (18.0-39.1); MEAN CORPUSCULAR HEMOGLOBIN 26.6 pg (28-32); MEAN CORPUSCULAR HGB CONC 30.4 g/dL (31-35); MEAN CORPUSCULAR VOLUME 87.6 fL (81-99); MONOCYTES # (AUTO) 1.1 (0.2-0.8); NEUTROPHILS # (AUTO) 24.2 (2.1-6.9); NEUTROPHILS % 86.7 % (38.7-80.0); PLATELET COUNT 610 x10e3/uL (140-360); RED BLOOD COUNT 5.41 x10e6/uL (3.6-5.1); RED CELL DISTRIBUTION WIDTH 14.1 % (11.7-14.4)
[2021-11-05] MEDS ORDERED: Morphine 4mg INJECTION 4 MG/ML INJ ONE ×2 (19:42→20:12)
[2021-11-05] MEDS ORDERED: ONDANSETRON HCL INJ 2MG/ML 2ML 2 MG/ML VIAL ONE (19:42)
[2021-11-05] MEDS: FENTANYL CITRATE/PF 100MCG/2 ML INJ IV PRN (19:45)
[2021-11-05] MEDS ORDERED: FENTANYL CITRATE/PF 100MCG/2 ML INJ ONE (19:46)
[2021-11-05 19:58] LABS: ALBUMIN 4.2 g/dL (3.5-5.0); ALBUMIN/GLOBULIN RATIO 0.9 (0.8-2.0); ANION GAP 23.5 mmol/L (8-16); CALCIUM 9.5 mg/dL (8.4-10.2); CREATININE, SERUM 0.9 mg/dL (0.57-1.11); POTASSIUM 3.5 mmol/L (3.5-5.1)
[2021-11-05] MEDS ORDERED: ASPIRIN 81 MG CHEW TAB PO ONE ×2 (20:00→23:00)
[2021-11-05] MEDS ORDERED: Morphine 4mg INJECTION 4 MG/ML INJ IV ONE (20:00)
[2021-11-05] MEDS ORDERED: CLONIDINE HCL 0.1 MG TAB PO ONE ×2 (20:15→21:45)
[2021-11-05] MEDS ORDERED: CLONIDINE HCL 0.1 MG TAB ONE (20:25)
[2021-11-05] MEDS ORDERED: LACTATED RINGER S INJ ONE (20:45)
[2021-11-05] MEDS: HYDRALAZINE HCL 20 MG/ML VIAL IV PRN (22:14)
[2021-11-05 22:18] LABS: COLOR,URINE STRAW (YELLOW)
[2021-11-05 22:19] LABS: CLARITY,URINE SL CLOUDY (CLEAR); KETONES,URINE 1+ (NEGATIVE); LEUKOCYTE ESTERASE ,URINE NEGATIVE (NEGATIVE); NITRITE,URINE NEGATIVE (NEGATIVE); PROTEIN,URINE DIPSTICK >=300 (NEGATIVE); URINE UROBILINOGEN 0.2 mg/dL (0.2 - 1)
[2021-11-05] MEDS ORDERED: LEVOFLOXACIN 750MG/D5W 150ML 150 ML IV ONE (22:30)
[2021-11-05 22:41] LABS: BACTERIA,URINE MANY /HPF; EPITHELIAL CELLS,URINE FEW /LPF; WBC,URINE (MAN) 21-50 /HPF (0-5)
[2021-11-05] MEDS ORDERED: METOCLOPRAMIDE HCL 10 MG/2ML VIAL IV ONE (23:15)
[2021-11-05] MEDS: Morphine 4mg INJECTION 4 MG/ML INJ IV PRN (23:16)
[2021-11-05] MEDS ORDERED: METOCLOPRAMIDE HCL 10 MG/2ML VIAL ONE (23:19)
[2021-11-06] VITALS (11 sets, daily range): BP systolic 127–143; BP diastolic 78–95
[2021-11-06] MEDS ORDERED: ACETAMINOPHEN 325 MG TAB PO ONE (00:15)
[2021-11-06] MEDS ORDERED: ACETAMINOPHEN 325 MG TAB ONE (00:18)
[2021-11-06] MEDS: SODIUM CHLORIDE 0.9% 1000ML 1,000 ML IV SCH ×3 (00:26→13:40)
[2021-11-06] MEDS: HYDRALAZINE HCL 20 MG/ML VIAL IV PRN (02:31)
[2021-11-06] MEDS: FENTANYL CITRATE/PF 100MCG/2 ML INJ IV PRN (02:31)
[2021-11-06 02:46] LABS: CREATINE KINASE MB 1.7 ng/mL (0-5.0)
[2021-11-06] MEDS ORDERED: SODIUM CHLORIDE 0.9% 1000ML 1,000 ML ONE (03:54)
[2021-11-06] MEDS ORDERED: METRONIDAZOLE 500MG/NS 100ML 200 ML IV ONE (03:55)
[2021-11-06] MEDS ORDERED: ONDANSETRON HCL INJ 2MG/ML 2ML 2 MG/ML VIAL ONE (04:05)
[2021-11-06] MEDS: METRONIDAZOLE 750MG/NS 150ML 150 ML IV SCH ×3 (04:08→20:13)
[2021-11-06] MEDS: Morphine 4mg INJECTION 4 MG/ML INJ IV PRN ×6 (04:08→20:55)
[2021-11-06 06:10] LABS: BASOPHILS % 0.2 % (0.0-1.0); HEMATOCRIT 39.2 % (34.2-44.1); HEMOGLOBIN 11.9 g/dL (12.0-16.0); LYMPHOCYTES # (AUTO) 2.6 (1.0-3.2); LYMPHOCYTES % 12.1 % (18.0-39.1); MEAN CORPUSCULAR HEMOGLOBIN 26.7 pg (28-32); MEAN CORPUSCULAR HGB CONC 30.4 g/dL (31-35); MEAN CORPUSCULAR VOLUME 88.1 fL (81-99); MONOCYTES # (AUTO) 1.3 (0.2-0.8); MONOCYTES % 5.9 % (4.4-11.3); NEUTROPHILS # (AUTO) 17.5 (2.1-6.9); PLATELET COUNT 426 x10e3/uL (140-360); RED BLOOD COUNT 4.45 x10e6/uL (3.6-5.1); RED CELL DISTRIBUTION WIDTH 14.3 % (11.7-14.4)
[2021-11-06 06:27] LABS: CALCIUM 7.6 mg/dL (8.4-10.2); CREATININE, SERUM 0.65 mg/dL (0.57-1.11)
[2021-11-06 06:51] LABS: CREATINE KINASE MB 2.1 ng/mL (0-5.0)
[2021-11-06] MEDS ORDERED: LEVOFLOXACIN 750MG/D5W 150ML 150 ML IV SCH (09:00)
[2021-11-06] MEDS ORDERED: POTASSIUM CHLORIDE 20 MEQ TAB CR PO NR ×2 (11:00→13:00)
[2021-11-06] MEDS ORDERED: METOPROLOL TARTRATE INJ 1 MG/ML VIAL IV NR (13:45)
[2021-11-06] MEDS: LEVOFLOXACIN 750MG/D5W 150ML 150 ML IV SCH (16:30)
[2021-11-07] VITALS (24 sets, daily range): BP systolic 120–168; BP diastolic 63–120
[2021-11-07] MEDS: SODIUM CHLORIDE 0.9% 1000ML 1,000 ML IV SCH (01:35)
[2021-11-07] MEDS: Morphine 4mg INJECTION 4 MG/ML INJ IV PRN ×3 (01:35→19:43)
[2021-11-07] MEDS: METRONIDAZOLE 750MG/NS 150ML 150 ML IV SCH ×3 (03:09→20:14)
[2021-11-07 05:06] LABS: ANION GAP 14.8 mmol/L (8-16); CALCIUM 7.7 mg/dL (8.4-10.2); CREATININE, SERUM 0.67 mg/dL (0.57-1.11)
[2021-11-07 05:11] LABS: POTASSIUM 3.8 mmol/L (3.5-5.1)
[2021-11-07] MEDS: METOPROLOL TARTRATE INJ 1 MG/ML VIAL IV PRN ×2 (07:35→11:14)
[2021-11-07] MEDS ORDERED: AMIODARONE HCL 150 MG/100 ML BAG IV ONE (08:00)
[2021-11-07] MEDS ORDERED: METOPROLOL TARTRATE INJ 1 MG/ML VIAL IV ONE ×2 (08:00→08:30)
[2021-11-07] MEDS ORDERED: AMIODARONE 900MG 900 MG in Premix Bag 1 BAG IV SCH (08:10)
[2021-11-07] MEDS ORDERED: PROMETHAZINE 12.5MG/ NACL 0.9% 12.5 MG/50 ML BAG IV PRN (08:45)
[2021-11-07] MEDS: DILTIAZEM HCL ER 120 MG CAP PO SCH (09:00)
[2021-11-07] MEDS: DOCUSATE SODIUM 100 MG CAP PO SCH (09:00)
[2021-11-07] MEDS: SENNOSIDES 8.6 MG TAB PO SCH (09:00)
[2021-11-07] MEDS: HYDRALAZINE HCL 20 MG/ML VIAL IV PRN ×2 (10:27→16:46)
[2021-11-07 11:44] LABS: BASOPHILS % 0.3 % (0.0-1.0); EOSINOPHILS % 0.1 % (0.0-6.0); HEMOGLOBIN 11.6 g/dL (12.0-16.0); LYMPHOCYTES # (AUTO) 3.4 (1.0-3.2); LYMPHOCYTES % 24.8 % (18.0-39.1); MEAN CORPUSCULAR HEMOGLOBIN 26.7 pg (28-32); MEAN CORPUSCULAR HGB CONC 28.3 g/dL (31-35); MEAN CORPUSCULAR VOLUME 94.3 fL (81-99); MONOCYTES # (AUTO) 1.6 (0.2-0.8); MONOCYTES % 11.4 % (4.4-11.3); NEUTROPHILS # (AUTO) 8.7 (2.1-6.9); PLATELET COUNT 367 x10e3/uL (140-360); RED BLOOD COUNT 4.35 x10e6/uL (3.6-5.1); RED CELL DISTRIBUTION WIDTH 15.1 % (11.7-14.4)
[2021-11-07] MEDS ORDERED: DIGOXIN INJ 0.25 MG/ML 2 ML AMP IV ONE (11:50)
[2021-11-07] MEDS: ONDANSETRON HCL INJ 2MG/ML 2ML 2 MG/ML VIAL IV PRN ×2 (12:07→19:40)
[2021-11-07 12:53] LABS: CREATINE KINASE MB 1.3 ng/mL (0-5.0)
[2021-11-07] MEDS: SUCRALFATE 1 GM TAB PO PRN (17:00)
[2021-11-07] MEDS: RIVAROXABAN 20 MG TABLET PO SCH (17:00)
[2021-11-07] MEDS ORDERED: CALCIUM CARBONATE 500 MG CHEWABLE TABS PO PRN (17:00)
[2021-11-07] MEDS: LEVOFLOXACIN 750MG/D5W 150ML 150 ML IV SCH (18:43)
[2021-11-08] VITALS (17 sets, daily range): BP systolic 107–170; BP diastolic 72–103
[2021-11-08] MEDS: Morphine 4mg INJECTION 4 MG/ML INJ IV PRN ×4 (00:44→20:25)
[2021-11-08] MEDS: METRONIDAZOLE 750MG/NS 150ML 150 ML IV SCH ×3 (04:26→20:26)
[2021-11-08 05:04] LABS: BASOPHILS % 0.2 % (0.0-1.0); HEMATOCRIT 41.5 % (34.2-44.1); HEMOGLOBIN 12.6 g/dL (12.0-16.0); LYMPHOCYTES # (AUTO) 2.3 (1.0-3.2); LYMPHOCYTES % 13.3 % (18.0-39.1); MEAN CORPUSCULAR HEMOGLOBIN 26.5 pg (28-32); MEAN CORPUSCULAR HGB CONC 30.4 g/dL (31-35); MEAN CORPUSCULAR VOLUME 87.2 fL (81-99); MONOCYTES # (AUTO) 1.2 (0.2-0.8); MONOCYTES % 6.9 % (4.4-11.3); NEUTROPHILS # (AUTO) 13.4 (2.1-6.9); PLATELET COUNT 418 x10e3/uL (140-360); RED BLOOD COUNT 4.76 x10e6/uL (3.6-5.1); RED CELL DISTRIBUTION WIDTH 14.8 % (11.7-14.4)
[2021-11-08 05:26] LABS: ALBUMIN 3.6 g/dL (3.5-5.0); ALBUMIN/GLOBULIN RATIO 0.9 (0.8-2.0); ANION GAP 18.9 mmol/L (8-16); CALCIUM 8.7 mg/dL (8.4-10.2); CREATININE, SERUM 0.7 mg/dL (0.57-1.11)
[2021-11-08 05:27] LABS: POTASSIUM 2.9 mmol/L (3.5-5.1)
[2021-11-08] MEDS ORDERED: POTASSIUM CHLORIDE 20 MEQ TAB CR PO STA (05:34)
[2021-11-08] MEDS: ONDANSETRON HCL INJ 2MG/ML 2ML 2 MG/ML VIAL IV PRN ×3 (05:40→17:09)
[2021-11-08] MEDS: METOPROLOL TARTRATE INJ 1 MG/ML VIAL IV PRN (06:07)
[2021-11-08] MEDS: SUCRALFATE 1 GM TAB PO PRN (08:54)
[2021-11-08] MEDS: DOCUSATE SODIUM 100 MG CAP PO SCH (09:00)
[2021-11-08] MEDS: SENNOSIDES 8.6 MG TAB PO SCH (09:00)
[2021-11-08] MEDS: DILTIAZEM HCL ER 120 MG CAP PO SCH ×2 (09:00→10:54)
[2021-11-08] MEDS ORDERED: MAALOX/LIDOCAINE/BENADRYL/NYST 30 ML BTL PO PRN (09:45)
[2021-11-08] MEDS ORDERED: AMIODARONE 900MG 500 ML IV SCH (11:00)
[2021-11-08] MEDS: AMIODARONE HCL 200 MG TAB PO SCH ×2 (11:25→22:00)
[2021-11-08] MEDS: HYDRALAZINE HCL 20 MG/ML VIAL IV PRN (13:01)
[2021-11-08] MEDS: DONNATAL/LIDOCAINE/MAALOX 30 ML SUSP PO PRN (13:57)
[2021-11-08] MEDS ORDERED: POTASSIUM CHLORIDE 20 MEQ TAB CR PO ONE (14:00)
[2021-11-08] MEDS: RIVAROXABAN 20 MG TABLET PO SCH (17:02)
[2021-11-08] MEDS: LEVOFLOXACIN 750MG/D5W 150ML 150 ML IV SCH (17:26)
[2021-11-08 19:13] LABS: ANION GAP 14.6 mmol/L (8-16); CALCIUM 8.3 mg/dL (8.4-10.2); CREATININE, SERUM 0.67 mg/dL (0.57-1.11)
[2021-11-08 19:16] LABS: POTASSIUM 3.6 mmol/L (3.5-5.1)
[2021-11-08] MEDS ORDERED: FOSFOMYCIN TROMETHAMINE 3 GM PACKET PO ONE (21:50)
[2021-11-09] VITALS (18 sets, daily range): BP systolic 95–142; BP diastolic 61–99
[2021-11-09] MEDS: ONDANSETRON HCL INJ 2MG/ML 2ML 2 MG/ML VIAL IV PRN ×2 (01:41→20:11)
[2021-11-09] MEDS: Morphine 4mg INJECTION 4 MG/ML INJ IV PRN ×5 (01:43→20:05)
[2021-11-09 05:08] LABS: BASOPHILS % 0.2 % (0.0-1.0); EOSINOPHILS % 0.2 % (0.0-6.0); HEMATOCRIT 39.7 % (34.2-44.1); HEMOGLOBIN 12.1 g/dL (12.0-16.0); LYMPHOCYTES # (AUTO) 2.4 (1.0-3.2); LYMPHOCYTES % 20.8 % (18.0-39.1); MEAN CORPUSCULAR HEMOGLOBIN 26.9 pg (28-32); MEAN CORPUSCULAR HGB CONC 30.5 g/dL (31-35); MEAN CORPUSCULAR VOLUME 88.4 fL (81-99); MONOCYTES # (AUTO) 0.9 (0.2-0.8); MONOCYTES % 7.7 % (4.4-11.3); NEUTROPHILS # (AUTO) 8.2 (2.1-6.9); NEUTROPHILS % 70.8 % (38.7-80.0); PLATELET COUNT 397 x10e3/uL (140-360); RED BLOOD COUNT 4.49 x10e6/uL (3.6-5.1); RED CELL DISTRIBUTION WIDTH 15.1 % (11.7-14.4)
[2021-11-09 05:29] LABS: ALBUMIN 3.1 g/dL (3.5-5.0); ALBUMIN/GLOBULIN RATIO 0.9 (0.8-2.0); ANION GAP 13.4 mmol/L (8-16); CREATININE, SERUM 0.65 mg/dL (0.57-1.11); POTASSIUM 3.4 mmol/L (3.5-5.1)
[2021-11-09] MEDS: DOCUSATE SODIUM 100 MG CAP PO SCH (08:14)
[2021-11-09] MEDS: AMIODARONE HCL 200 MG TAB PO SCH ×2 (08:14→20:10)
[2021-11-09] MEDS: SENNOSIDES 8.6 MG TAB PO SCH (08:14)
[2021-11-09] MEDS ORDERED: POTASSIUM CHLORIDE 20 MEQ TAB CR PO ONE (08:35)
[2021-11-09] MEDS: RIVAROXABAN 20 MG TABLET PO SCH (16:40)
[2021-11-09] MEDS ORDERED: DIPHENHYDRAMINE HCL 25 MG CAP PO PRN (18:00)
[2021-11-09] MEDS: DIPHENHYDRAMINE HCL 25 MG CAP PO SCH (20:10)
[2021-11-09] MEDS: TRIMETHOPRIM/SULFAMETHOXAZOLE 160-800 MG TAB PO SCH (20:10)
[2021-11-10] VITALS (12 sets, daily range): BP systolic 112–158; BP diastolic 75–94
[2021-11-10] MEDS: Morphine 4mg INJECTION 4 MG/ML INJ IV PRN ×5 (00:58→20:56)
[2021-11-10 04:56] LABS: BASOPHILS # (AUTO) 0.1 (0.0-0.1); BASOPHILS % 0.5 % (0.0-1.0); EOSINOPHILS # (AUTO) 0.1 (0.0-0.4); EOSINOPHILS % 1.2 % (0.0-6.0); HEMATOCRIT 41.6 % (34.2-44.1); HEMOGLOBIN 12.2 g/dL (12.0-16.0); LYMPHOCYTES # (AUTO) 3.4 (1.0-3.2); LYMPHOCYTES % 30.4 % (18.0-39.1); MEAN CORPUSCULAR HEMOGLOBIN 26.9 pg (28-32); MEAN CORPUSCULAR HGB CONC 29.3 g/dL (31-35); MEAN CORPUSCULAR VOLUME 91.8 fL (81-99); NEUTROPHILS # (AUTO) 6.5 (2.1-6.9); NEUTROPHILS % 58.4 % (38.7-80.0); PLATELET COUNT 290 x10e3/uL (140-360); RED BLOOD COUNT 4.53 x10e6/uL (3.6-5.1); RED CELL DISTRIBUTION WIDTH 15.8 % (11.7-14.4)
[2021-11-10 05:15] LABS: ANION GAP 14.4 mmol/L (8-16); CREATININE, SERUM 0.64 mg/dL (0.57-1.11); MAGNESIUM 2.2 MG/DL (1.3-2.1); POTASSIUM 3.4 mmol/L (3.5-5.1)
[2021-11-10] MEDS: TRIMETHOPRIM/SULFAMETHOXAZOLE 160-800 MG TAB PO SCH ×2 (08:36→20:55)
[2021-11-10] MEDS: DIPHENHYDRAMINE HCL 25 MG CAP PO SCH ×2 (08:36→20:55)
[2021-11-10] MEDS: DILTIAZEM HCL ER 120 MG CAP PO SCH (08:37)
[2021-11-10] MEDS: AMIODARONE HCL 200 MG TAB PO SCH ×2 (08:38→20:55)
[2021-11-10] MEDS: DOCUSATE SODIUM 100 MG CAP PO SCH (08:38)
[2021-11-10] MEDS: SENNOSIDES 8.6 MG TAB PO SCH (08:38)
[2021-11-10] MEDS: ONDANSETRON HCL INJ 2MG/ML 2ML 2 MG/ML VIAL IV PRN ×2 (16:49→20:56)
[2021-11-11] VITALS (7 sets, daily range): BP systolic 120–141; BP diastolic 86–99
[2021-11-11] MEDS: ONDANSETRON HCL INJ 2MG/ML 2ML 2 MG/ML VIAL IV PRN ×4 (02:17→18:09)
[2021-11-11] MEDS: Morphine 4mg INJECTION 4 MG/ML INJ IV PRN ×5 (02:17→22:25)
[2021-11-11 07:11] LABS: BASOPHILS # (AUTO) 0.1 (0.0-0.1); BASOPHILS % 0.5 % (0.0-1.0); EOSINOPHILS # (AUTO) 0.2 (0.0-0.4); EOSINOPHILS % 1.4 % (0.0-6.0); HEMATOCRIT 39.5 % (34.2-44.1); HEMOGLOBIN 11.9 g/dL (12.0-16.0); LYMPHOCYTES # (AUTO) 2.7 (1.0-3.2); LYMPHOCYTES % 23.3 % (18.0-39.1); MEAN CORPUSCULAR HGB CONC 30.1 g/dL (31-35); MEAN CORPUSCULAR VOLUME 89.6 fL (81-99); MONOCYTES # (AUTO) 0.8 (0.2-0.8); MONOCYTES % 7.2 % (4.4-11.3); NEUTROPHILS # (AUTO) 7.8 (2.1-6.9); NEUTROPHILS % 67.3 % (38.7-80.0); PLATELET COUNT 403 x10e3/uL (140-360); RED BLOOD COUNT 4.41 x10e6/uL (3.6-5.1); RED CELL DISTRIBUTION WIDTH 15.8 % (11.7-14.4)
[2021-11-11 07:49] LABS: ALBUMIN 3.4 g/dL (3.5-5.0); ALBUMIN/GLOBULIN RATIO 1.1 (0.8-2.0); ANION GAP 12.4 mmol/L (8-16); CALCIUM 8.3 mg/dL (8.4-10.2); CREATININE, SERUM 0.65 mg/dL (0.57-1.11); POTASSIUM 3.4 mmol/L (3.5-5.1)
[2021-11-11] MEDS: DIPHENHYDRAMINE HCL 25 MG CAP PO SCH ×2 (08:38→21:32)
[2021-11-11] MEDS: TRIMETHOPRIM/SULFAMETHOXAZOLE 160-800 MG TAB PO SCH ×2 (08:38→21:32)
[2021-11-11] MEDS: DOCUSATE SODIUM 100 MG CAP PO SCH (08:40)
[2021-11-11] MEDS: DILTIAZEM HCL ER 120 MG CAP PO SCH (08:40)
[2021-11-11] MEDS: SENNOSIDES 8.6 MG TAB PO SCH (08:41)
[2021-11-11] MEDS: AMIODARONE HCL 200 MG TAB PO SCH ×2 (08:41→21:32)
[2021-11-11] MEDS ORDERED: POTASSIUM CHLORIDE 20 MEQ TAB CR PO ONE (09:45)
[2021-11-12] MEDS: ONDANSETRON HCL INJ 2MG/ML 2ML 2 MG/ML VIAL IV PRN ×4 (03:00→17:15)
[2021-11-12] MEDS: Morphine 4mg INJECTION 4 MG/ML INJ IV PRN ×5 (03:02→21:16)
[2021-11-12 06:03] VITALS: BP 131/84
[2021-11-12 08:05] VITALS: BP 123/91
[2021-11-12] MEDS: TRIMETHOPRIM/SULFAMETHOXAZOLE 160-800 MG TAB PO SCH ×2 (08:24→21:10)
[2021-11-12] MEDS: DIPHENHYDRAMINE HCL 25 MG CAP PO SCH ×2 (08:24→21:11)
[2021-11-12] MEDS: DILTIAZEM HCL ER 120 MG CAP PO SCH (08:24)
[2021-11-12] MEDS: DOCUSATE SODIUM 100 MG CAP PO SCH (08:25)
[2021-11-12] MEDS: AMIODARONE HCL 200 MG TAB PO SCH ×2 (08:25→21:11)
[2021-11-12] MEDS: SENNOSIDES 8.6 MG TAB PO SCH (08:26)
[2021-11-12 08:37] LABS: BASOPHILS # (AUTO) 0.1 (0.0-0.1); BASOPHILS % 0.4 % (0.0-1.0); EOSINOPHILS # (AUTO) 0.2 (0.0-0.4); EOSINOPHILS % 1.7 % (0.0-6.0); HEMOGLOBIN 11.7 g/dL (12.0-16.0); LYMPHOCYTES # (AUTO) 2.7 (1.0-3.2); LYMPHOCYTES % 22.1 % (18.0-39.1); MEAN CORPUSCULAR HEMOGLOBIN 26.8 pg (28-32); MEAN CORPUSCULAR VOLUME 89.2 fL (81-99); MONOCYTES # (AUTO) 0.8 (0.2-0.8); MONOCYTES % 6.3 % (4.4-11.3); NEUTROPHILS # (AUTO) 8.3 (2.1-6.9); NEUTROPHILS % 69.2 % (38.7-80.0); PLATELET COUNT 403 x10e3/uL (140-360); RED BLOOD COUNT 4.37 x10e6/uL (3.6-5.1)
[2021-11-12 09:00] VITALS: BP 123/91
[2021-11-12 09:15] LABS: ALBUMIN 3.3 g/dL (3.5-5.0); ALBUMIN/GLOBULIN RATIO 0.9 (0.8-2.0); ANION GAP 14.2 mmol/L (8-16); CALCIUM 9.2 mg/dL (8.4-10.2); CREATININE, SERUM 0.75 mg/dL (0.57-1.11); MAGNESIUM 1.9 MG/DL (1.3-2.1); POTASSIUM 4.2 mmol/L (3.5-5.1)
[2021-11-12 12:01] VITALS: BP 119/92
[2021-11-12] MEDS ORDERED: POVIDONE IODINE 0.05% 0.05 % ML PO ONE (12:18)
[2021-11-12] MEDS ORDERED: PROPOFOL IV EMULSION 10 MG/ML 20 ML VIAL ONE (12:18)
[2021-11-12] MEDS ORDERED: MIDAZOLAM HCL 2 MG/2 ML VIAL ONE (12:49)
[2021-11-12] MEDS ORDERED: FENTANYL CITRATE/PF 100MCG/2 ML INJ ONE (12:49)
[2021-11-12] MEDS ORDERED: BISACODYL 10 MG SUPP PR ONE (13:00)
[2021-11-12] MEDS: DONNATAL/LIDOCAINE/MAALOX 30 ML SUSP PO PRN (14:07)
[2021-11-12 20:25] VITALS: BP 124/88
[2021-11-12 23:48] VITALS: BP 124/88
[2021-11-13] VITALS (7 sets, daily range): BP systolic 116–139; BP diastolic 82–96
[2021-11-13] MEDS: Morphine 4mg INJECTION 4 MG/ML INJ IV PRN ×2 (02:55→09:26)
[2021-11-13 07:57] LABS: BASOPHILS # (AUTO) 0.1 (0.0-0.1); BASOPHILS % 0.5 % (0.0-1.0); EOSINOPHILS # (AUTO) 0.2 (0.0-0.4); EOSINOPHILS % 1.2 % (0.0-6.0); HEMATOCRIT 39.7 % (34.2-44.1); HEMOGLOBIN 11.7 g/dL (12.0-16.0); LYMPHOCYTES # (AUTO) 2.5 (1.0-3.2); LYMPHOCYTES % 19.3 % (18.0-39.1); MEAN CORPUSCULAR HEMOGLOBIN 26.9 pg (28-32); MEAN CORPUSCULAR HGB CONC 29.5 g/dL (31-35); MEAN CORPUSCULAR VOLUME 91.3 fL (81-99); MONOCYTES # (AUTO) 0.7 (0.2-0.8); MONOCYTES % 5.6 % (4.4-11.3); NEUTROPHILS # (AUTO) 9.6 (2.1-6.9); NEUTROPHILS % 73.1 % (38.7-80.0); PLATELET COUNT 257 x10e3/uL (140-360); RED BLOOD COUNT 4.35 x10e6/uL (3.6-5.1)
[2021-11-13] MEDS: SENNOSIDES 8.6 MG TAB PO SCH (09:00)
[2021-11-13] MEDS: DIPHENHYDRAMINE HCL 25 MG CAP PO SCH ×2 (09:22→21:00)
[2021-11-13] MEDS: TRIMETHOPRIM/SULFAMETHOXAZOLE 160-800 MG TAB PO SCH ×2 (09:22→21:00)
[2021-11-13] MEDS: DILTIAZEM HCL ER 120 MG CAP PO SCH (09:23)
[2021-11-13] MEDS: AMIODARONE HCL 200 MG TAB PO SCH ×2 (09:24→21:00)
[2021-11-13] MEDS: DOCUSATE SODIUM 100 MG CAP PO SCH (09:24)
[2021-11-13] MEDS: ONDANSETRON HCL INJ 2MG/ML 2ML 2 MG/ML VIAL IV PRN (09:26)
[2021-11-13] MEDS: POLYETHYLENE GLYCOL 3350 17 GM PACK PO SCH (09:31)
[2021-11-13] MEDS ORDERED: Morphine 2mg Syringe 2 MG/ML SYR ONE (09:32)
[2021-11-13] MEDS ORDERED: CITRATE OF MAGNESIA 300ML BOTTLE PO ONE (11:30)
[2021-11-13] MEDS ORDERED: BISACODYL 10 MG SUPP PR ONE ×2 (11:30→16:00)
[2021-11-13] MEDS ORDERED: Morphine 4mg INJECTION 4 MG/ML INJ IV ONE (16:00)
[2021-11-14 00:14] VITALS: BP 129/86
[2021-11-14] MEDS: HYDROCODONE/APAP 7.5MG-325MG 1 EA TAB PO PRN ×3 (02:05→09:33)
[2021-11-14 05:32] VITALS: BP 118/79
[2021-11-14 07:49] VITALS: BP 136/93
[2021-11-14 08:00] VITALS: BP 136/93
[2021-11-14 08:21] LABS: ANION GAP 13.3 mmol/L (8-16); CALCIUM 8.7 mg/dL (8.4-10.2); CREATININE, SERUM 0.76 mg/dL (0.57-1.11); MAGNESIUM 2.6 MG/DL (1.3-2.1); POTASSIUM 4.3 mmol/L (3.5-5.1)
[2021-11-14 08:51] LABS: BASOPHILS % 0.4 % (0.0-1.0); EOSINOPHILS # (AUTO) 0.1 (0.0-0.4); EOSINOPHILS % 1.3 % (0.0-6.0); HEMOGLOBIN 11.2 g/dL (12.0-16.0); LYMPHOCYTES # (AUTO) 2.4 (1.0-3.2); LYMPHOCYTES % 22.4 % (18.0-39.1); MEAN CORPUSCULAR HEMOGLOBIN 26.7 pg (28-32); MEAN CORPUSCULAR HGB CONC 29.5 g/dL (31-35); MEAN CORPUSCULAR VOLUME 90.5 fL (81-99); MONOCYTES # (AUTO) 0.8 (0.2-0.8); MONOCYTES % 7.6 % (4.4-11.3); NEUTROPHILS # (AUTO) 7.2 (2.1-6.9); NEUTROPHILS % 68.1 % (38.7-80.0); PLATELET COUNT 402 x10e3/uL (140-360); RED CELL DISTRIBUTION WIDTH 15.9 % (11.7-14.4)
[2021-11-14] MEDS: SENNOSIDES 8.6 MG TAB PO SCH (09:00)
[2021-11-14] MEDS: TRIMETHOPRIM/SULFAMETHOXAZOLE 160-800 MG TAB PO SCH (09:32)
[2021-11-14] MEDS: DIPHENHYDRAMINE HCL 25 MG CAP PO SCH (09:32)
[2021-11-14] MEDS: DILTIAZEM HCL ER 120 MG CAP PO SCH (09:32)
[2021-11-14] MEDS: AMIODARONE HCL 200 MG TAB PO SCH (09:32)
[2021-11-14] MEDS: DOCUSATE SODIUM 100 MG CAP PO SCH (09:33)
[2021-11-14] MEDS: POLYETHYLENE GLYCOL 3350 17 GM PACK PO SCH (09:33)
[2021-11-14 11:24] VITALS: BP 126/92
[2021-11-21] MEDS ORDERED: ZOLOFT100 MG PO (12:31)
[2021-11-21] MEDS ORDERED: AMIODARONE HCL200 MG PO (12:31)
[2021-11-21] MEDS ORDERED: DICYCLOMINE HCL10 MG PO (12:31)
== END 2021-11-14 14:48 | disposition home health service (06) | DRG 872 ==
LOC: ER 19:20 → ERHOLD 23:23 → ICU 11-06 07:48 → OBSVTOIN 11-07 08:25 → MED/SURG3 11-10 15:20
PROVIDERS: ADMIT Internal Medicine; ATTEND Internal Medicine
PROC: 05HY33Z Insertion of Infusion Device into Upper Vein, Percutaneous Approach (ICD-10-PCS; principal; 2021-11-07)
PROC: 0D758ZZ Dilation of Esophagus, Via Natural or Artificial Opening Endoscopic (ICD-10-PCS; 2021-11-12)
PROC: 0DB78ZX Excision of Stomach, Pylorus, Via Natural or Artificial Opening Endoscopic, Diagnostic (ICD-10-PCS; 2021-11-12)
PROC: 0DB68ZZ Excision of Stomach, Via Natural or Artificial Opening Endoscopic (ICD-10-PCS; 2021-11-12)
PROC: 0DB98ZX Excision of Duodenum, Via Natural or Artificial Opening Endoscopic, Diagnostic (ICD-10-PCS; 2021-11-12)
PROC: 3E03329 Introduction of Other Anti-infective into Peripheral Vein, Percutaneous Approach (ICD-10-PCS; 2021-11-12)
PROC: 0DD58ZX Extraction of Esophagus, Via Natural or Artificial Opening Endoscopic, Diagnostic (ICD-10-PCS; 2021-11-12)
DX: A41.51 Sepsis due to Escherichia coli [E. coli] (principal); N12 Tubulo-interstitial nephritis, not specified as acute or chronic; I47.1 Supraventricular tachycardia; Z16.24 Resistance to multiple antibiotics; B37.81 Candidal esophagitis; F31.9 Bipolar disorder, unspecified; E87.6 Hypokalemia; I25.10 Atherosclerotic heart disease of native coronary artery without angina pectoris; Z95.5 Presence of coronary angioplasty implant and graft; E03.9 Hypothyroidism, unspecified; I48.0 Paroxysmal atrial fibrillation; Z79.01 Long term (current) use of anticoagulants; E66.09 Other obesity due to excess calories; Z68.33 Body mass index [BMI] 33.0-33.9, adult; E87.8 Other disorders of electrolyte and fluid balance, not elsewhere classified; K29.70 Gastritis, unspecified, without bleeding; K31.7 Polyp of stomach and duodenum; Z88.1 Allergy status to other antibiotic agents; Z88.0 Allergy status to penicillin; Z88.2 Allergy status to sulfonamides; Z95.0 Presence of cardiac pacemaker; K21.9 Gastro-esophageal reflux disease without esophagitis; Z87.891 Personal history of nicotine dependence; I49.5 Sick sinus syndrome; E78.00 Pure hypercholesterolemia, unspecified; Z20.822 Contact with and (suspected) exposure to COVID-19; I10 Essential (primary) hypertension
CPT/HCPCS: 36415; 43450; 51700; 71045; 71250; 74018; 74176; 76705; 78227; 80048; 80053; 81001; 82550; 82553; 83605; 83690; 83735; 84484; 85025; 87040; 87086; 87106; 87186; 87205; 88112; 88300; 88305; 88312; 88342; 93005; 94799; 97139; 99251; 99285; A9537; G0378; J0360; J1160; J2250; J2270; J2405; J2550; J2765; J3010; J7030; J7121

== ENCOUNTER → 2021-11-23 | Day surgery (SDC) | payer MEDICARE ==
[~2021-11-23] MED LIST changes: +BUPIVACAINE HCL 0.25% 10ML MPF VIAL INJ ONE; +DEXAMETHASONE SOD PHOS INJ 4 MG/ML SDV ONE; +DICYCLOMINE HCL10 MG PO; +FENTANYL CITRATE/PF 100MCG/2 ML INJ ONE; +HYDROCODONE/APAP 7.5MG-325MG 1 EA TAB ONE; +KETOROLAC TROMETHAMINE 30 MG/ML VIAL ONE; +LIDOCAINE HCL 2% LOCAL INJ 5 ML SDV VIAL INJ ONE; +MIDAZOLAM HCL 2 MG/2 ML VIAL ONE; +ONDANSETRON HCL INJ 2MG/ML 2ML 2 MG/ML VIAL ONE; +POVIDONE IODINE 0.05% 0.05 % ML PO ONE; +PROPOFOL IV EMULSION 10 MG/ML 20 ML VIAL ONE; +SEVOFLURANE INHAL SOLN 250 ML PEN BTL ONE
[2021-11-23 14:30] VITALS: BP 94/60
== END | disposition home or self-care (01) ==
LOC: OR 09:17
PROVIDERS: ATTEND Surgery
DX: D17.1 Benign lipomatous neoplasm of skin and subcutaneous tissue of trunk (principal); I10 Essential (primary) hypertension; I48.91 Unspecified atrial fibrillation; Z88.0 Allergy status to penicillin; Z88.2 Allergy status to sulfonamides; Z88.8 Allergy status to other drugs, medicaments and biological substances; Z01.812 Encounter for preprocedural laboratory examination; Z20.822 Contact with and (suspected) exposure to COVID-19; F41.9 Anxiety disorder, unspecified; Z95.5 Presence of coronary angioplasty implant and graft; Z95.0 Presence of cardiac pacemaker; E03.9 Hypothyroidism, unspecified; K21.9 Gastro-esophageal reflux disease without esophagitis; D64.9 Anemia, unspecified; Z87.442 Personal history of urinary calculi
CPT/HCPCS: 0223U; 21552; 36415; 88304; C1713; J1100; J1885; J2001; J2250; J2405; J2704; J3010

== ENCOUNTER 2022-01-11 07:50 | Inpatient (IN) | payer MEDICARE ==
[~2022-01-11] VITALS: Ht 162.6 cm; Wt 80.7 kg
[~2022-01-11 07:50] MED LIST changes: -BUPIVACAINE HCL 0.25% 10ML MPF VIAL INJ ONE; -DEXAMETHASONE SOD PHOS INJ 4 MG/ML SDV ONE; -FENTANYL CITRATE/PF 100MCG/2 ML INJ ONE; -HYDROCODONE/APAP 7.5MG-325MG 1 EA TAB ONE; -KETOROLAC TROMETHAMINE 30 MG/ML VIAL ONE; -LIDOCAINE HCL 2% LOCAL INJ 5 ML SDV VIAL INJ ONE; -MIDAZOLAM HCL 2 MG/2 ML VIAL ONE; -ONDANSETRON HCL INJ 2MG/ML 2ML 2 MG/ML VIAL ONE; -POVIDONE IODINE 0.05% 0.05 % ML PO ONE; -PROPOFOL IV EMULSION 10 MG/ML 20 ML VIAL ONE; -SEVOFLURANE INHAL SOLN 250 ML PEN BTL ONE
[2022-01-11] MEDS ORDERED: FAMOTIDINE 20 MG/2 ML VIAL IV STA (08:01)
[2022-01-11] MEDS ORDERED: DICYCLOMINE HCL 20 MG/2 ML VIAL IM ONE (08:15)
[2022-01-11] MEDS ORDERED: LACTATED RINGER'S 500 ML IV ONE ×3 (08:15→16:30)
[2022-01-11] MEDS ORDERED: SODIUM CHLORIDE 0.9% 500ML 500 ML ONE (08:24)
[2022-01-11 08:53] LABS: BASOPHILS % 0.3 % (0.0-1.0); EOSINOPHILS # (AUTO) 0.1 (0.0-0.4); EOSINOPHILS % 0.4 % (0.0-6.0); HEMATOCRIT 40.6 % (34.2-44.1); HEMOGLOBIN 12.2 g/dL (12.0-16.0); LYMPHOCYTES # (AUTO) 1.4 (1.0-3.2); LYMPHOCYTES % 10.3 % (18.0-39.1); MEAN CORPUSCULAR VOLUME 83.2 fL (81-99); MONOCYTES # (AUTO) 0.6 (0.2-0.8); MONOCYTES % 4.6 % (4.4-11.3); NEUTROPHILS # (AUTO) 11.8 (2.1-6.9); PLATELET COUNT 522 x10e3/uL (140-360); RED BLOOD COUNT 4.88 x10e6/uL (3.6-5.1); RED CELL DISTRIBUTION WIDTH 17.5 % (11.7-14.4)
[2022-01-11] MEDS: ONDANSETRON HCL INJ 2MG/ML 2ML 2 MG/ML VIAL IV PRN ×3 (09:08→14:47)
[2022-01-11 09:15] LABS: ALBUMIN 3.4 g/dL (3.5-5.0); ALBUMIN/GLOBULIN RATIO 0.7 (0.8-2.0); ANION GAP 19.2 mmol/L (8-16); CALCIUM 9.3 mg/dL (8.4-10.2); CREATININE, SERUM 0.93 mg/dL (0.57-1.11); POTASSIUM 3.2 mmol/L (3.5-5.1)
[2022-01-11 09:25] LABS: COLOR,URINE YELLOW (YELLOW)
[2022-01-11 09:26] LABS: CLARITY,URINE CLEAR (CLEAR); KETONES,URINE NEGATIVE (NEGATIVE); LEUKOCYTE ESTERASE ,URINE NEGATIVE (NEGATIVE); NITRITE,URINE NEGATIVE (NEGATIVE); PROTEIN,URINE DIPSTICK NEGATIVE (NEGATIVE)
[2022-01-11 09:28] LABS: URINE UROBILINOGEN 0.2 mg/dL (0.2 - 1)
[2022-01-11 09:32] LABS: BACTERIA,URINE MODERATE /HPF; EPITHELIAL CELLS,URINE MODERATE /LPF; WBC,URINE (MAN) 0-5 /HPF (0-5)
[2022-01-11] MEDS: FENTANYL CITRATE/PF 100MCG/2 ML INJ IV PRN ×2 (09:42→10:14)
[2022-01-11] MEDS ORDERED: CIPROFLOXACIN 400 MG/D5W 200ML 200 ML IV STA (09:45)
[2022-01-11] MEDS ORDERED: ONDANSETRON HCL INJ 2MG/ML 2ML 2 MG/ML VIAL IV PRN (10:15)
[2022-01-11] MEDS ORDERED: LACTATED RINGER'S 1,000 ML INJ ONE (10:15)
[2022-01-11] MEDS: Morphine 4mg INJECTION 4 MG/ML INJ IV PRN ×3 (10:32→19:57)
[2022-01-11 11:50] VITALS: BP 153/107
[2022-01-11 12:26] VITALS: BP 138/110
[2022-01-11] MEDS ORDERED: TEMAZEPAM15 MG PO (12:26)
[2022-01-11] MEDS: LABETALOL HCL 5 MG/ML 20ML VIAL IV PRN ×3 (13:50→23:30)
[2022-01-11] MEDS ORDERED: POTASSIUM CHLORIDE 20 MEQ TAB CR PO ONE (14:00)
[2022-01-11] MEDS: RIVAROXABAN 20 MG TABLET PO SCH ×2 (17:30→17:41)
[2022-01-11] MEDS: PANTOPRAZOLE SOD 40 MG TABEC PO SCH (17:42)
[2022-01-11] MEDS: CLONAZEPAM 1 MG TAB PO SCH (17:43)
[2022-01-11] MEDS: SUCRALFATE 1 GM TAB PO SCH ×2 (17:43→21:29)
[2022-01-11 19:54] VITALS: BP 160/108
[2022-01-11] MEDS ORDERED: IOPAMIDOL 370 MG/ML 100 ML INFUS..BTL INJ ONE (19:58)
[2022-01-11] MEDS: CIPROFLOXACIN 400 MG/D5W 200ML 200 ML IV SCH (21:29)
[2022-01-11] MEDS: TEMAZEPAM 15 MG CAP PO SCH (21:29)
[2022-01-11] MEDS: SERTRALINE HCL 100 MG TAB PO SCH (21:29)
[2022-01-11] MEDS: LACTATED RINGER'S 1,000 ML INJ SCH (23:31)
[2022-01-11 23:40] VITALS: BP 175/107
[2022-01-12] MEDS: Morphine 4mg INJECTION 4 MG/ML INJ IV PRN ×2 (01:48→10:27)
[2022-01-12 04:45] LABS: BASOPHILS # (AUTO) 0.1 (0.0-0.1); BASOPHILS % 0.5 % (0.0-1.0); EOSINOPHILS # (AUTO) 0.2 (0.0-0.4); EOSINOPHILS % 1.5 % (0.0-6.0); HEMATOCRIT 37.6 % (34.2-44.1); HEMOGLOBIN 11.5 g/dL (12.0-16.0); LYMPHOCYTES # (AUTO) 3.1 (1.0-3.2); LYMPHOCYTES % 25.9 % (18.0-39.1); MEAN CORPUSCULAR HEMOGLOBIN 25.1 pg (28-32); MEAN CORPUSCULAR HGB CONC 30.6 g/dL (31-35); MEAN CORPUSCULAR VOLUME 82.1 fL (81-99); MONOCYTES % 8.1 % (4.4-11.3); NEUTROPHILS # (AUTO) 7.6 (2.1-6.9); NEUTROPHILS % 63.7 % (38.7-80.0); PLATELET COUNT 418 x10e3/uL (140-360); RED BLOOD COUNT 4.58 x10e6/uL (3.6-5.1); RED CELL DISTRIBUTION WIDTH 17.6 % (11.7-14.4)
[2022-01-12 05:01] VITALS: BP 121/90
[2022-01-12 05:16] LABS: ALBUMIN 3.1 g/dL (3.5-5.0); ALBUMIN/GLOBULIN RATIO 0.7 (0.8-2.0); ANION GAP 17.6 mmol/L (8-16); CALCIUM 9.3 mg/dL (8.4-10.2); CREATININE, SERUM 0.63 mg/dL (0.57-1.11); MAGNESIUM 1.8 MG/DL (1.3-2.1); POTASSIUM 3.6 mmol/L (3.5-5.1)
[2022-01-12 05:24] LABS: FREE THYROXINE INDEX 2.3153 (1.4-3.8); THYROID STIMULATING HORMONE 3.34 uIU/mL (0.350-4.940)
[2022-01-12] MEDS: LEVOTHYROXINE SODIUM 100 MCG TAB PO SCH (05:32)
[2022-01-12] MEDS: LACTATED RINGER'S 1,000 ML INJ SCH ×3 (07:23→21:30)
[2022-01-12] MEDS: AMIODARONE HCL 200 MG TAB PO SCH (09:08)
[2022-01-12] MEDS: PANTOPRAZOLE SOD 40 MG TABEC PO SCH ×2 (09:09→16:15)
[2022-01-12] MEDS: METOPROLOL SUCCINATE 50 MG TAB XL PO SCH (09:09)
[2022-01-12] MEDS: SUCRALFATE 1 GM TAB PO SCH ×4 (09:09→21:30)
[2022-01-12] MEDS: DOCUSATE SODIUM 100 MG CAP PO SCH (09:10)
[2022-01-12] MEDS: DICYCLOMINE HCL 10 MG CAP PO SCH (09:10)
[2022-01-12] MEDS: SENNOSIDES 8.6 MG TAB PO SCH (09:10)
[2022-01-12] MEDS: CLONAZEPAM 1 MG TAB PO SCH ×2 (09:11→16:15)
[2022-01-12] MEDS: CIPROFLOXACIN 400 MG/D5W 200ML 200 ML IV SCH ×2 (09:12→21:37)
[2022-01-12] MEDS: DILTIAZEM HCL ER 120 MG CAP PO SCH (09:13)
[2022-01-12] MEDS: LABETALOL HCL 5 MG/ML 20ML VIAL IV PRN (09:15)
[2022-01-12 09:54] VITALS: BP 172/103
[2022-01-12] MEDS ORDERED: HYDROCODONE/APAP 10MG-325MG TAB PO PRN (10:00)
[2022-01-12 13:52] VITALS: BP 182/120
[2022-01-12 16:00] VITALS: BP 158/118
[2022-01-12] MEDS ORDERED: CLONIDINE HCL 0.2 MG TAB PO ONE (16:15)
[2022-01-12] MEDS: Morphine 2mg Syringe 2 MG/ML SYR IV PRN (18:02)
[2022-01-12 20:30] VITALS: BP 135/104
[2022-01-12] MEDS: SERTRALINE HCL 100 MG TAB PO SCH (21:31)
[2022-01-12] MEDS: TEMAZEPAM 15 MG CAP PO SCH (21:31)
[2022-01-12] MEDS: CLONIDINE HCL 0.2 MG TAB PO SCH (21:32)
[2022-01-13] VITALS (7 sets, daily range): BP systolic 111–142; BP diastolic 66–99
[2022-01-13] MEDS: Morphine 2mg Syringe 2 MG/ML SYR IV PRN ×5 (00:33→19:36)
[2022-01-13] MEDS: LACTATED RINGER'S 1,000 ML INJ SCH ×2 (05:05→16:31)
[2022-01-13] MEDS: LEVOTHYROXINE SODIUM 100 MCG TAB PO SCH (05:05)
[2022-01-13 06:02] LABS: BASOPHILS # (AUTO) 0.1 (0.0-0.1); BASOPHILS % 0.7 % (0.0-1.0); EOSINOPHILS # (AUTO) 0.2 (0.0-0.4); EOSINOPHILS % 2.8 % (0.0-6.0); HEMATOCRIT 32.6 % (34.2-44.1); HEMOGLOBIN 9.7 g/dL (12.0-16.0); LYMPHOCYTES # (AUTO) 2.9 (1.0-3.2); LYMPHOCYTES % 38.2 % (18.0-39.1); MEAN CORPUSCULAR HEMOGLOBIN 24.7 pg (28-32); MEAN CORPUSCULAR HGB CONC 29.8 g/dL (31-35); MEAN CORPUSCULAR VOLUME 83.2 fL (81-99); MONOCYTES # (AUTO) 0.6 (0.2-0.8); MONOCYTES % 8.3 % (4.4-11.3); NEUTROPHILS # (AUTO) 3.8 (2.1-6.9); NEUTROPHILS % 49.7 % (38.7-80.0); PLATELET COUNT 393 x10e3/uL (140-360); RED BLOOD COUNT 3.92 x10e6/uL (3.6-5.1); RED CELL DISTRIBUTION WIDTH 17.6 % (11.7-14.4)
[2022-01-13 06:31] LABS: ALBUMIN 2.7 g/dL (3.5-5.0); ALBUMIN/GLOBULIN RATIO 0.8 (0.8-2.0); ANION GAP 12.8 mmol/L (8-16); CREATININE, SERUM 0.71 mg/dL (0.57-1.11); MAGNESIUM 1.9 MG/DL (1.3-2.1); POTASSIUM 3.8 mmol/L (3.5-5.1)
[2022-01-13] MEDS: PANTOPRAZOLE SOD 40 MG TABEC PO SCH ×2 (09:30→16:31)
[2022-01-13] MEDS: METOPROLOL SUCCINATE 50 MG TAB XL PO SCH (09:31)
[2022-01-13] MEDS: CLONAZEPAM 1 MG TAB PO SCH ×2 (09:32→16:31)
[2022-01-13] MEDS: SENNOSIDES 8.6 MG TAB PO SCH (09:32)
[2022-01-13] MEDS: CLONIDINE HCL 0.2 MG TAB PO SCH ×3 (09:32→23:03)
[2022-01-13] MEDS: AMIODARONE HCL 200 MG TAB PO SCH (09:33)
[2022-01-13] MEDS: DOCUSATE SODIUM 100 MG CAP PO SCH (09:33)
[2022-01-13] MEDS: DICYCLOMINE HCL 10 MG CAP PO SCH (09:33)
[2022-01-13] MEDS: SUCRALFATE 1 GM TAB PO SCH ×4 (09:33→23:02)
[2022-01-13] MEDS: DILTIAZEM HCL ER 120 MG CAP PO SCH (09:34)
[2022-01-13] MEDS: CIPROFLOXACIN 400 MG/D5W 200ML 200 ML IV SCH ×2 (10:19→23:04)
[2022-01-13] MEDS ORDERED: MIDAZOLAM HCL 2 MG/2 ML VIAL ONE (13:11)
[2022-01-13] MEDS ORDERED: FENTANYL CITRATE/PF 100MCG/2 ML INJ ONE (13:11)
[2022-01-13] MEDS: DONNATAL/LIDOCAINE/MAALOX 30 ML SUSP PO PRN (14:18)
[2022-01-13] MEDS: SERTRALINE HCL 100 MG TAB PO SCH (23:02)
[2022-01-13] MEDS: HYDROCODONE/APAP 5MG-325MG TAB PO PRN (23:02)
[2022-01-13] MEDS: TEMAZEPAM 15 MG CAP PO SCH (23:02)
[2022-01-14] VITALS (8 sets, daily range): BP systolic 94–109; BP diastolic 61–75
[2022-01-14] MEDS: Morphine 2mg Syringe 2 MG/ML SYR IV PRN ×2 (00:22→05:14)
[2022-01-14] MEDS: LACTATED RINGER'S 1,000 ML INJ SCH ×3 (05:14→20:12)
[2022-01-14] MEDS: LEVOTHYROXINE SODIUM 100 MCG TAB PO SCH (05:14)
[2022-01-14 05:27] LABS: BASOPHILS % 0.4 % (0.0-1.0); EOSINOPHILS # (AUTO) 0.2 (0.0-0.4); EOSINOPHILS % 3.2 % (0.0-6.0); HEMATOCRIT 30.9 % (34.2-44.1); HEMOGLOBIN 8.7 g/dL (12.0-16.0); LYMPHOCYTES # (AUTO) 2.2 (1.0-3.2); LYMPHOCYTES % 31.9 % (18.0-39.1); MEAN CORPUSCULAR HEMOGLOBIN 24.5 pg (28-32); MEAN CORPUSCULAR HGB CONC 28.2 g/dL (31-35); MONOCYTES # (AUTO) 0.5 (0.2-0.8); MONOCYTES % 6.8 % (4.4-11.3); NEUTROPHILS % 57.4 % (38.7-80.0); PLATELET COUNT 338 x10e3/uL (140-360); RED BLOOD COUNT 3.55 x10e6/uL (3.6-5.1); RED CELL DISTRIBUTION WIDTH 17.7 % (11.7-14.4)
[2022-01-14 05:58] LABS: ALBUMIN 2.6 g/dL (3.5-5.0); ALBUMIN/GLOBULIN RATIO 0.9 (0.8-2.0); ANION GAP 12.4 mmol/L (8-16); CALCIUM 8.8 mg/dL (8.4-10.2); CREATININE, SERUM 0.81 mg/dL (0.57-1.11); MAGNESIUM 1.8 MG/DL (1.3-2.1); POTASSIUM 4.4 mmol/L (3.5-5.1)
[2022-01-14] MEDS: SUCRALFATE 1 GM TAB PO SCH ×4 (07:30→20:46)
[2022-01-14] MEDS: PANTOPRAZOLE SOD 40 MG TABEC PO SCH ×2 (07:30→17:54)
[2022-01-14] MEDS: DILTIAZEM HCL ER 120 MG CAP PO SCH (09:00)
[2022-01-14] MEDS: SENNOSIDES 8.6 MG TAB PO SCH (09:00)
[2022-01-14] MEDS: DOCUSATE SODIUM 100 MG CAP PO SCH (09:00)
[2022-01-14] MEDS: METOPROLOL SUCCINATE 50 MG TAB XL PO SCH (09:00)
[2022-01-14] MEDS: CLONIDINE HCL 0.2 MG TAB PO SCH ×3 (09:00→20:27)
[2022-01-14] MEDS: CIPROFLOXACIN 400 MG/D5W 200ML 200 ML IV SCH ×2 (09:13→20:44)
[2022-01-14] MEDS ORDERED: BUPIVACAINE 0.25% 30ML SDV ONE (09:42)
[2022-01-14] MEDS ORDERED: ONDANSETRON HCL INJ 2MG/ML 2ML 2 MG/ML VIAL ONE (12:34)
[2022-01-14] MEDS ORDERED: KETOROLAC TROMETHAMINE 30 MG/ML VIAL ONE (12:34)
[2022-01-14] MEDS ORDERED: SEVOFLURANE INHAL SOLN 250 ML PEN BTL ONE (12:34)
[2022-01-14] MEDS ORDERED: ROCURONIUM BROMIDE 10 MG/ML 5ML VIAL IV ONE (12:34)
[2022-01-14] MEDS ORDERED: LIDOCAINE HCL 2% LOCAL INJ 5 ML SDV VIAL INJ ONE (12:34)
[2022-01-14] MEDS ORDERED: PROPOFOL IV EMULSION 10 MG/ML 20 ML VIAL ONE (12:34)
[2022-01-14] MEDS ORDERED: NEOSTIGMINE 1 MG/ML 10ML VIAL ONE (12:34)
[2022-01-14] MEDS ORDERED: POVIDONE IODINE 0.05% 0.05 % ML PO ONE (12:34)
[2022-01-14] MEDS ORDERED: DEXAMETHASONE SOD PHOS INJ 4 MG/ML SDV ONE (12:34)
[2022-01-14] MEDS ORDERED: ATROPINE SULFATE 1 MG/ML VIAL ONE (12:34)
[2022-01-14] MEDS: ONDANSETRON HCL INJ 2MG/ML 2ML 2 MG/ML VIAL IV PRN ×2 (12:48→16:17)
[2022-01-14] MEDS: CLONAZEPAM 1 MG TAB PO SCH ×2 (12:48→17:54)
[2022-01-14] MEDS: AMIODARONE HCL 200 MG TAB PO SCH (12:48)
[2022-01-14] MEDS: HYDROMORPHONE 1MG/1ML INJ IV PRN ×4 (12:49→22:56)
[2022-01-14] MEDS: TEMAZEPAM 15 MG CAP PO SCH (20:46)
[2022-01-14] MEDS: SERTRALINE HCL 100 MG TAB PO SCH (20:47)
[2022-01-15] VITALS (7 sets, daily range): BP systolic 110–138; BP diastolic 65–91
[2022-01-15] MEDS: HYDROMORPHONE 1MG/1ML INJ IV PRN ×5 (01:59→18:14)
[2022-01-15 06:06] LABS: BASOPHILS % 0.2 % (0.0-1.0); EOSINOPHILS % 0.2 % (0.0-6.0); HEMOGLOBIN 8.9 g/dL (12.0-16.0); LYMPHOCYTES # (AUTO) 1.8 (1.0-3.2); LYMPHOCYTES % 20.3 % (18.0-39.1); MEAN CORPUSCULAR HEMOGLOBIN 24.9 pg (28-32); MEAN CORPUSCULAR HGB CONC 29.7 g/dL (31-35); MONOCYTES # (AUTO) 0.5 (0.2-0.8); MONOCYTES % 5.7 % (4.4-11.3); NEUTROPHILS # (AUTO) 6.5 (2.1-6.9); NEUTROPHILS % 73.3 % (38.7-80.0); PLATELET COUNT 353 x10e3/uL (140-360); RED BLOOD COUNT 3.57 x10e6/uL (3.6-5.1); RED CELL DISTRIBUTION WIDTH 17.6 % (11.7-14.4)
[2022-01-15] MEDS: LEVOTHYROXINE SODIUM 100 MCG TAB PO SCH (06:13)
[2022-01-15 06:34] LABS: ALBUMIN 2.7 g/dL (3.5-5.0); ALBUMIN/GLOBULIN RATIO 0.9 (0.8-2.0); ANION GAP 11.8 mmol/L (8-16); CALCIUM 8.2 mg/dL (8.4-10.2); CREATININE, SERUM 0.67 mg/dL (0.57-1.11); POTASSIUM 3.8 mmol/L (3.5-5.1)
[2022-01-15] MEDS: LACTATED RINGER'S 1,000 ML INJ SCH ×2 (06:49→17:15)
[2022-01-15] MEDS: SUCRALFATE 1 GM TAB PO SCH ×4 (07:49→21:19)
[2022-01-15] MEDS: PANTOPRAZOLE SOD 40 MG TABEC PO SCH ×2 (07:50→16:07)
[2022-01-15] MEDS: AMIODARONE HCL 200 MG TAB PO SCH (07:50)
[2022-01-15] MEDS: DOCUSATE SODIUM 100 MG CAP PO SCH (07:50)
[2022-01-15] MEDS: DILTIAZEM HCL ER 120 MG CAP PO SCH (07:52)
[2022-01-15] MEDS: CLONIDINE HCL 0.2 MG TAB PO SCH ×3 (09:00→21:19)
[2022-01-15] MEDS: METOPROLOL SUCCINATE 50 MG TAB XL PO SCH (09:00)
[2022-01-15] MEDS: SENNOSIDES 8.6 MG TAB PO SCH (09:30)
[2022-01-15] MEDS: CLONAZEPAM 1 MG TAB PO SCH ×2 (11:03→16:07)
[2022-01-15] MEDS: CIPROFLOXACIN 400 MG/D5W 200ML 200 ML IV SCH ×2 (11:07→21:18)
[2022-01-15] MEDS: DONNATAL/LIDOCAINE/MAALOX 30 ML SUSP PO PRN (12:24)
[2022-01-15] MEDS: HYDROCODONE/APAP 5MG-325MG TAB PO PRN ×2 (16:01→22:03)
[2022-01-15] MEDS: SERTRALINE HCL 100 MG TAB PO SCH (21:19)
[2022-01-15] MEDS: TEMAZEPAM 15 MG CAP PO SCH (21:20)
[2022-01-16] VITALS: BP 90/68
[2022-01-16] MEDS: HYDROMORPHONE 1MG/1ML INJ IV PRN ×2 (02:34→08:39)
[2022-01-16] MEDS: LACTATED RINGER'S 1,000 ML INJ SCH (03:13)
[2022-01-16 06:02] VITALS: BP 89/67
[2022-01-16] MEDS: LEVOTHYROXINE SODIUM 100 MCG TAB PO SCH (06:29)
[2022-01-16] MEDS ORDERED: GUAIFENESIN/DEXTROMETHORPHAN LIQD 5 ML UDC PO PRN (08:00)
[2022-01-16] MEDS ORDERED: HYDROCODON-ACE1 EA11 PO (08:01)
[2022-01-16 08:29] VITALS: BP 89/67
[2022-01-16] MEDS: SENNOSIDES 8.6 MG TAB PO SCH (08:39)
[2022-01-16] MEDS: CLONAZEPAM 1 MG TAB PO SCH (08:39)
[2022-01-16 08:40] VITALS: BP 122/86
[2022-01-16] MEDS: METOPROLOL SUCCINATE 50 MG TAB XL PO SCH (08:40)
[2022-01-16] MEDS: DILTIAZEM HCL ER 120 MG CAP PO SCH (08:41)
[2022-01-16] MEDS: DOCUSATE SODIUM 100 MG CAP PO SCH (08:41)
[2022-01-16] MEDS: AMIODARONE HCL 200 MG TAB PO SCH (08:41)
[2022-01-16] MEDS: SUCRALFATE 1 GM TAB PO SCH ×2 (08:41→11:22)
[2022-01-16] MEDS: PANTOPRAZOLE SOD 40 MG TABEC PO SCH (08:41)
[2022-01-16] MEDS: CLONIDINE HCL 0.2 MG TAB PO SCH (08:42)
[2022-01-16] MEDS: CIPROFLOXACIN 400 MG/D5W 200ML 200 ML IV SCH (08:42)
[2022-01-16] MEDS ORDERED: ONDANSETRON HCL 4 MG ORAL DISINTEGRATING TAB PO PRN (11:15)
[2022-01-16] MEDS: HYDROCODONE/APAP 5MG-325MG TAB PO PRN (11:22)
[2022-01-16 11:49] VITALS: BP 109/71
[2022-01-16] MEDS ORDERED: ONDANSETRON ODT4 MG PO (12:10)
[2022-01-16] MEDS ORDERED: CIPROFLOXACIN 500 MG TAB PO SCH (21:00)
== END 2022-01-16 12:47 | disposition home or self-care (01) | DRG 854 ==
LOC: MERGE 07:50 → ER 07:53 → ERHOLD 10:17 → MED/SURG 11:55 → OBSVTOIN 01-12 09:49 → MED/SURG2 01-12 17:12
PROVIDERS: ADMIT Internal Medicine; ATTEND Internal Medicine
PROC: 02HV33Z Insertion of Infusion Device into Superior Vena Cava, Percutaneous Approach (ICD-10-PCS; principal; 2022-01-11)
PROC: 3E04329 Introduction of Other Anti-infective into Central Vein, Percutaneous Approach (ICD-10-PCS; 2022-01-11)
PROC: 0FT44ZZ Resection of Gallbladder, Percutaneous Endoscopic Approach (ICD-10-PCS; 2022-01-14)
DX: A41.9 Sepsis, unspecified organism (principal); E87.2 Acidosis; N39.0 Urinary tract infection, site not specified; I25.10 Atherosclerotic heart disease of native coronary artery without angina pectoris; Z95.5 Presence of coronary angioplasty implant and graft; I48.0 Paroxysmal atrial fibrillation; Z79.01 Long term (current) use of anticoagulants; Z87.891 Personal history of nicotine dependence; K21.9 Gastro-esophageal reflux disease without esophagitis; E03.9 Hypothyroidism, unspecified; E66.9 Obesity, unspecified; Z68.30 Body mass index [BMI] 30.0-30.9, adult; E78.2 Mixed hyperlipidemia; E87.6 Hypokalemia; Z20.822 Contact with and (suspected) exposure to COVID-19; K82.8 Other specified diseases of gallbladder; E66.09 Other obesity due to excess calories; D64.9 Anemia, unspecified; I11.0 Hypertensive heart disease with heart failure; I50.9 Heart failure, unspecified; B18.2 Chronic viral hepatitis C; F31.9 Bipolar disorder, unspecified; I49.5 Sick sinus syndrome; Z95.0 Presence of cardiac pacemaker; Z88.0 Allergy status to penicillin; Z88.2 Allergy status to sulfonamides; Z88.1 Allergy status to other antibiotic agents; Z91.041 Radiographic dye allergy status; Z79.899 Other long term (current) drug therapy; G89.29 Other chronic pain
CPT/HCPCS: 0223U; 36415; 71045; 74174; 76705; 78227; 80053; 81001; 82150; 83605; 83690; 83735; 83880; 84436; 84443; 84479; 84484; 85025; 87040; 88304; 93005; 94799; 99284; A9537; C1766; G0378; J0461; J0500; J1100; J1170; J1885; J2001; J2250; J2270; J2405; J2710; J3010; J7040; J7121; Q9967

== ENCOUNTER 2022-01-24 07:14 | Inpatient (IN) | payer MEDICARE ==
[~2022-01-24] VITALS: Ht 162.6 cm; Wt 82.3 kg
[2022-01-24] VITALS (29 sets, daily range): BP systolic 75–142; BP diastolic 48–84
[~2022-01-24 07:14] MED LIST changes: +HYDROCODON-ACE1 EA11 PO; +ONDANSETRON ODT4 MG PO; +TEMAZEPAM15 MG PO
[2022-01-24] MEDS ORDERED: SODIUM CHLORIDE 0.9% 1000ML 1,000 ML IV STA ×2 (07:44→08:25)
[2022-01-24] MEDS ORDERED: SODIUM CHLORIDE 0.9% 1000ML 1,000 ML ONE (07:51)
[2022-01-24 08:01] LABS: BASOPHILS # (AUTO) 0.1 (0.0-0.1); BASOPHILS % 0.6 % (0.0-1.0); EOSINOPHILS # (AUTO) 0.3 (0.0-0.4); EOSINOPHILS % 3.6 % (0.0-6.0); HEMATOCRIT 31.6 % (34.2-44.1); LYMPHOCYTES # (AUTO) 1.9 (1.0-3.2); LYMPHOCYTES % 23.3 % (18.0-39.1); MEAN CORPUSCULAR HEMOGLOBIN 24.7 pg (28-32); MEAN CORPUSCULAR HGB CONC 28.5 g/dL (31-35); MEAN CORPUSCULAR VOLUME 86.6 fL (81-99); MONOCYTES # (AUTO) 0.7 (0.2-0.8); MONOCYTES % 7.8 % (4.4-11.3); NEUTROPHILS # (AUTO) 5.4 (2.1-6.9); NEUTROPHILS % 64.5 % (38.7-80.0); PLATELET COUNT 364 x10e3/uL (140-360); RED BLOOD COUNT 3.65 x10e6/uL (3.6-5.1); RED CELL DISTRIBUTION WIDTH 18.3 % (11.7-14.4)
[2022-01-24 08:07] LABS: INR 0.9
[2022-01-24 08:08] LABS: PARTIAL THROMBOPLASTIN TIME 30.2 seconds (23.8-35.5)
[2022-01-24 08:17] LABS: ALANINE AMINOTRANSFERASE 10 IU/L (0-55); ALBUMIN 2.9 g/dL (3.5-5.0); ALBUMIN/GLOBULIN RATIO 0.9 (0.8-2.0); ALKALINE PHOSPHATASE 66 IU/L (40-150); ANION GAP 13.4 mmol/L (8-16); BLOOD UREA NITROGEN 12 mg/dL (7-26); BUN/CREATININE RATIO 8 (6-25); CARBON DIOXIDE 23 mmol/L (22-29); CHLORIDE 108 mmol/L (98-107); CREATINE KINASE 24 IU/L (29-168); CREATININE, SERUM 1.42 mg/dL (0.57-1.11); GLUCOSE 109 mg/dL (74-118); MAGNESIUM 1.9 MG/DL (1.3-2.1); POTASSIUM 3.4 mmol/L (3.5-5.1); SODIUM 141 mmol/L (136-145)
[2022-01-24 08:26] LABS: CLARITY,URINE CLEAR (CLEAR); COLOR,URINE YELLOW (YELLOW); KETONES,URINE NEGATIVE (NEGATIVE); LEUKOCYTE ESTERASE ,URINE NEGATIVE (NEGATIVE); NITRITE,URINE NEGATIVE (NEGATIVE); PROTEIN,URINE DIPSTICK NEGATIVE (NEGATIVE); URINE UROBILINOGEN 0.2 mg/dL (0.2 - 1)
[2022-01-24] MEDS ORDERED: SODIUM CHLORIDE 0.9% 500ML 500 ML IV ONE (08:30)
[2022-01-24 08:34] LABS: BACTERIA,URINE MODERATE /HPF; EPITHELIAL CELLS,URINE RARE /LPF; WBC,URINE (MAN) 0-5 /HPF (0-5)
[2022-01-24] MEDS ORDERED: FENTANYL CITRATE/PF 100MCG/2 ML INJ IV ONE (09:45)
[2022-01-24] MEDS: FAMOTIDINE 20 MG/2 ML VIAL IV SCH ×2 (10:41→23:07)
[2022-01-24] MEDS: Morphine 2mg Syringe 2 MG/ML SYR IV PRN ×4 (12:33→22:36)
[2022-01-24 13:09] LABS: CREATINE KINASE MB 0.9 ng/mL (0-5.0)
[2022-01-24] MEDS ORDERED: LIDOCAINE HCL 2% LOCAL 20 ML VIAL ONE (13:15)
[2022-01-24] MEDS ORDERED: Morphine 2mg Syringe 2 MG/ML SYR IV ONE (13:30)
[2022-01-24] MEDS ORDERED: NOREPINEPHRINE 8 MG/D5W 250 ML 250 ML IV PRN (19:45)
[2022-01-24 19:53] LABS: CREATINE KINASE MB 0.7 ng/mL (0-5.0)
[2022-01-24] MEDS ORDERED: NOREPINEPHRINE 8 MG/D5W 250 ML 250 ML ONE (19:55)
[2022-01-25] VITALS (32 sets, daily range): BP systolic 80–139; BP diastolic 44–90
[2022-01-25] MEDS: Morphine 2mg Syringe 2 MG/ML SYR IV PRN ×6 (02:46→20:53)
[2022-01-25] MEDS: PANTOPRAZOLE SOD 40 MG TABEC PO SCH (06:00)
[2022-01-25 06:44] LABS: BASOPHILS # (AUTO) 0.1 (0.0-0.1); BASOPHILS % 0.6 % (0.0-1.0); EOSINOPHILS # (AUTO) 0.3 (0.0-0.4); EOSINOPHILS % 3.2 % (0.0-6.0); HEMATOCRIT 27.8 % (34.2-44.1); LYMPHOCYTES % 31.3 % (18.0-39.1); MEAN CORPUSCULAR HEMOGLOBIN 24.9 pg (28-32); MEAN CORPUSCULAR HGB CONC 28.8 g/dL (31-35); MEAN CORPUSCULAR VOLUME 86.6 fL (81-99); MONOCYTES # (AUTO) 0.8 (0.2-0.8); MONOCYTES % 7.9 % (4.4-11.3); NEUTROPHILS # (AUTO) 5.5 (2.1-6.9); NEUTROPHILS % 56.8 % (38.7-80.0); PLATELET COUNT 355 x10e3/uL (140-360); RED BLOOD COUNT 3.21 x10e6/uL (3.6-5.1); RED CELL DISTRIBUTION WIDTH 17.9 % (11.7-14.4)
[2022-01-25 07:02] LABS: CREATINE KINASE 45 IU/L (29-168)
[2022-01-25 07:04] LABS: ALBUMIN 2.5 g/dL (3.5-5.0); ALBUMIN/GLOBULIN RATIO 0.8 (0.8-2.0); ANION GAP 10.3 mmol/L (8-16); CALCIUM 7.9 mg/dL (8.4-10.2); CREATININE, SERUM 0.67 mg/dL (0.57-1.11); POTASSIUM 3.3 mmol/L (3.5-5.1)
[2022-01-25] MEDS ORDERED: POTASSIUM CHLORIDE 10MEQ/100ML 300 ML IV ONE (07:30)
[2022-01-25] MEDS ORDERED: NALOXONE HCL INJ 0.4 MG/ML AMP IV PRN (08:15)
[2022-01-25] MEDS ORDERED: MAALOX/LIDOCAINE/BENADRYL/NYST 30 ML BTL PO PRN (08:15)
[2022-01-25] MEDS: AMIODARONE HCL 200 MG TAB PO SCH (08:21)
[2022-01-25] MEDS: FAMOTIDINE 20 MG/2 ML VIAL IV SCH ×2 (09:01→21:38)
[2022-01-25] MEDS ORDERED: POTASSIUM CHLORIDE 20MEQ/100ML 200 ML IV ONE (09:15)
[2022-01-25] MEDS ORDERED: POVIDONE IODINE 0.05% 0.05 % ML PO ONE (13:55)
[2022-01-25] MEDS ORDERED: ROCURONIUM BROMIDE 10 MG/ML 5ML VIAL IV ONE (13:55)
[2022-01-25] MEDS ORDERED: PROPOFOL IV EMULSION 10 MG/ML 20 ML VIAL ONE (13:55)
[2022-01-25] MEDS ORDERED: DEXAMETHASONE SOD PHOS INJ 4 MG/ML SDV ONE (13:55)
[2022-01-25] MEDS ORDERED: ONDANSETRON HCL INJ 2MG/ML 2ML 2 MG/ML VIAL ONE (13:55)
[2022-01-25] MEDS ORDERED: LIDOCAINE HCL 2% LOCAL INJ 5 ML SDV VIAL INJ ONE (13:55)
[2022-01-25] MEDS ORDERED: SEVOFLURANE INHAL SOLN 250 ML PEN BTL ONE (13:55)
[2022-01-25] MEDS ORDERED: SODIUM CHLORIDE 0.9% 250ML 250 ML IV ONE (14:30)
[2022-01-25] MEDS ORDERED: HEPARIN SOD/SOD CHLORIDE 1,000 ML ONE (14:38)
[2022-01-25] MEDS ORDERED: FENTANYL CITRATE/PF 100MCG/2 ML INJ ONE (15:51)
[2022-01-25] MEDS ORDERED: SUGAMMADEX SODIUM 200 MG/2 ML VIAL IV ONE (15:51)
[2022-01-25] MEDS ORDERED: HYDROMORPHONE 1MG/1ML INJ ONE (15:52)
[2022-01-25] MEDS ORDERED: ACETAMINOPHEN 1000 MG/100 ML 100 ML IV ONE (15:52)
[2022-01-25] MEDS ORDERED: MIDAZOLAM HCL 2 MG/2 ML VIAL ONE (15:52)
[2022-01-25] MEDS ORDERED: ALBUMIN 25% 12.5GM 50ML 50 ML IV ONE (16:21)
[2022-01-25] MEDS ORDERED: BUPIVACAINE HCL 0.25% 10ML MPF VIAL INJ ONE (18:03)
[2022-01-25] MEDS ORDERED: CLINDAMYCIN PHOS 900MG/ 50ML 50 ML IV ONE (18:05)
[2022-01-25] MEDS ORDERED: Vancomycin IV 500 MG ONE (18:49)
[2022-01-25] MEDS ORDERED: Vancomycin IV 1 GM in SODIUM CHLORIDE 0.9% 250ML 250 ML IV ONE (20:30)
[2022-01-25 20:34] LABS: ANION GAP 12.8 mmol/L (8-16); CREATININE, SERUM 0.6 mg/dL (0.57-1.11); POTASSIUM 3.8 mmol/L (3.5-5.1)
[2022-01-26] VITALS (46 sets, daily range): BP systolic 78–174; BP diastolic 65–101
[2022-01-26] MEDS: Morphine 2mg Syringe 2 MG/ML SYR IV PRN ×4 (00:10→09:39)
[2022-01-26 05:58] LABS: BASOPHILS # (AUTO) 0.1 (0.0-0.1); BASOPHILS % 0.4 % (0.0-1.0); EOSINOPHILS % 0.1 % (0.0-6.0); HEMATOCRIT 29.3 % (34.2-44.1); HEMOGLOBIN 9.1 g/dL (12.0-16.0); LYMPHOCYTES # (AUTO) 1.4 (1.0-3.2); LYMPHOCYTES % 11.5 % (18.0-39.1); MEAN CORPUSCULAR HGB CONC 31.1 g/dL (31-35); MEAN CORPUSCULAR VOLUME 83.7 fL (81-99); MONOCYTES # (AUTO) 0.9 (0.2-0.8); NEUTROPHILS # (AUTO) 9.8 (2.1-6.9); NEUTROPHILS % 80.3 % (38.7-80.0); PLATELET COUNT 330 x10e3/uL (140-360); RED CELL DISTRIBUTION WIDTH 17.1 % (11.7-14.4)
[2022-01-26] MEDS: PANTOPRAZOLE SOD 40 MG TABEC PO SCH (06:02)
[2022-01-26 06:26] LABS: ALBUMIN 2.5 g/dL (3.5-5.0); ALBUMIN/GLOBULIN RATIO 0.9 (0.8-2.0); ANION GAP 11.7 mmol/L (8-16); CREATININE, SERUM 0.59 mg/dL (0.57-1.11); MAGNESIUM 1.6 MG/DL (1.3-2.1); POTASSIUM 3.7 mmol/L (3.5-5.1)
[2022-01-26] MEDS: ASPIRIN 81 MG CHEW TAB PO SCH (09:00)
[2022-01-26] MEDS: FAMOTIDINE 20 MG/2 ML VIAL IV SCH ×2 (09:12→21:22)
[2022-01-26] MEDS: AMIODARONE HCL 200 MG TAB PO SCH (09:12)
[2022-01-26] MEDS: LEVOFLOXACIN 750MG/D5W 150ML 150 ML IV SCH (11:07)
[2022-01-26] MEDS: HYDROMORPHONE 1MG/1ML INJ IV PRN ×4 (12:28→21:22)
[2022-01-27] VITALS (26 sets, daily range): BP systolic 124–209; BP diastolic 76–132
[2022-01-27] MEDS: HYDROMORPHONE 1MG/1ML INJ IV PRN ×7 (00:24→20:53)
[2022-01-27] MEDS: PANTOPRAZOLE SOD 40 MG TABEC PO SCH (06:04)
[2022-01-27 06:46] LABS: BASOPHILS % 0.4 % (0.0-1.0); EOSINOPHILS # (AUTO) 0.2 (0.0-0.4); EOSINOPHILS % 2.3 % (0.0-6.0); HEMATOCRIT 30.9 % (34.2-44.1); HEMOGLOBIN 9.2 g/dL (12.0-16.0); LYMPHOCYTES # (AUTO) 2.1 (1.0-3.2); MEAN CORPUSCULAR HEMOGLOBIN 25.9 pg (28-32); MEAN CORPUSCULAR HGB CONC 29.8 g/dL (31-35); MONOCYTES # (AUTO) 1.1 (0.2-0.8); NEUTROPHILS # (AUTO) 6.1 (2.1-6.9); NEUTROPHILS % 63.9 % (38.7-80.0); PLATELET COUNT 339 x10e3/uL (140-360); RED BLOOD COUNT 3.55 x10e6/uL (3.6-5.1); RED CELL DISTRIBUTION WIDTH 17.5 % (11.7-14.4)
[2022-01-27 07:13] LABS: ALANINE AMINOTRANSFERASE 39 IU/L (0-55); ALBUMIN 2.6 g/dL (3.5-5.0); ALBUMIN/GLOBULIN RATIO 0.7 (0.8-2.0); ALKALINE PHOSPHATASE 141 IU/L (40-150); ANION GAP 13.2 mmol/L (8-16); BLOOD UREA NITROGEN < 5 mg/dL (7-26); CALCIUM 8.5 mg/dL (8.4-10.2); CARBON DIOXIDE 26 mmol/L (22-29); CHLORIDE 106 mmol/L (98-107); CREATININE, SERUM 0.56 mg/dL (0.57-1.11); GLUCOSE 91 mg/dL (74-118); MAGNESIUM 1.5 MG/DL (1.3-2.1); POTASSIUM 3.2 mmol/L (3.5-5.1); SODIUM 142 mmol/L (136-145)
[2022-01-27 07:15] LABS: BUN/CREATININE RATIO 9 (6-25)
[2022-01-27] MEDS: LEVOFLOXACIN 750MG/D5W 150ML 150 ML IV SCH (08:44)
[2022-01-27] MEDS: FAMOTIDINE 20 MG/2 ML VIAL IV SCH ×2 (08:45→20:53)
[2022-01-27] MEDS: ASPIRIN 81 MG CHEW TAB PO SCH (08:45)
[2022-01-27] MEDS: AMIODARONE HCL 200 MG TAB PO SCH (08:45)
[2022-01-27] MEDS ORDERED: POTASSIUM CHLORIDE 20 MEQ TAB CR PO ONE (09:15)
[2022-01-27] MEDS: ONDANSETRON HCL INJ 2MG/ML 2ML 2 MG/ML VIAL IV PRN ×3 (10:11→20:52)
[2022-01-27] MEDS: HYDROCODONE/APAP 10MG-325MG TAB PO PRN (10:27)
[2022-01-27] MEDS: DILTIAZEM HCL CR 120MG TAB PO SCH (10:39)
[2022-01-27] MEDS ORDERED: HYDRALAZINE HCL 20 MG/ML VIAL IV PRN (12:45)
[2022-01-27] MEDS: RIVAROXABAN 20 MG TABLET PO SCH (17:10)
[2022-01-28] VITALS (7 sets, daily range): BP systolic 141–155; BP diastolic 90–94
[2022-01-28] MEDS: HYDROMORPHONE 1MG/1ML INJ IV PRN ×6 (00:29→23:55)
[2022-01-28] MEDS: ONDANSETRON HCL INJ 2MG/ML 2ML 2 MG/ML VIAL IV PRN ×5 (03:30→23:55)
[2022-01-28] MEDS: PANTOPRAZOLE SOD 40 MG TABEC PO SCH (05:34)
[2022-01-28] MEDS: LEVOFLOXACIN 750MG/D5W 150ML 150 ML IV SCH (08:05)
[2022-01-28] MEDS: DILTIAZEM HCL CR 120MG TAB PO SCH (08:06)
[2022-01-28] MEDS: AMIODARONE HCL 200 MG TAB PO SCH (08:06)
[2022-01-28] MEDS: ASPIRIN 81 MG CHEW TAB PO SCH (08:07)
[2022-01-28 08:14] LABS: BASOPHILS # (AUTO) 0.1 (0.0-0.1); BASOPHILS % 0.4 % (0.0-1.0); EOSINOPHILS # (AUTO) 0.3 (0.0-0.4); EOSINOPHILS % 2.3 % (0.0-6.0); HEMATOCRIT 34.2 % (34.2-44.1); HEMOGLOBIN 10.1 g/dL (12.0-16.0); LYMPHOCYTES % 17.3 % (18.0-39.1); MEAN CORPUSCULAR HEMOGLOBIN 25.8 pg (28-32); MEAN CORPUSCULAR HGB CONC 29.5 g/dL (31-35); MEAN CORPUSCULAR VOLUME 87.5 fL (81-99); MONOCYTES # (AUTO) 0.9 (0.2-0.8); MONOCYTES % 7.9 % (4.4-11.3); NEUTROPHILS # (AUTO) 8.2 (2.1-6.9); NEUTROPHILS % 71.8 % (38.7-80.0); PLATELET COUNT 453 x10e3/uL (140-360); RED BLOOD COUNT 3.91 x10e6/uL (3.6-5.1); RED CELL DISTRIBUTION WIDTH 18.4 % (11.7-14.4)
[2022-01-28 08:31] LABS: ALANINE AMINOTRANSFERASE 30 IU/L (0-55); ALBUMIN 2.6 g/dL (3.5-5.0); ALBUMIN/GLOBULIN RATIO 0.6 (0.8-2.0); ALKALINE PHOSPHATASE 131 IU/L (40-150); ANION GAP 15.5 mmol/L (8-16); BLOOD UREA NITROGEN < 5 mg/dL (7-26); CALCIUM 9.2 mg/dL (8.4-10.2); CARBON DIOXIDE 25 mmol/L (22-29); CHLORIDE 103 mmol/L (98-107); CREATININE, SERUM 0.56 mg/dL (0.57-1.11); GLUCOSE 114 mg/dL (74-118); MAGNESIUM 1.5 MG/DL (1.3-2.1); POTASSIUM 3.5 mmol/L (3.5-5.1); SODIUM 140 mmol/L (136-145)
[2022-01-28 08:32] LABS: BUN/CREATININE RATIO 9 (6-25)
[2022-01-28] MEDS: FAMOTIDINE 20 MG/2 ML VIAL IV SCH ×2 (10:13→19:56)
[2022-01-28] MEDS: HYDROCODONE/APAP 10MG-325MG TAB PO PRN ×2 (11:18→17:25)
[2022-01-28] MEDS: RIVAROXABAN 20 MG TABLET PO SCH (16:42)
[2022-01-29] MEDS: HYDROMORPHONE 1MG/1ML INJ IV PRN ×4 (04:30→23:50)
[2022-01-29] MEDS: ONDANSETRON HCL INJ 2MG/ML 2ML 2 MG/ML VIAL IV PRN ×4 (04:30→23:50)
[2022-01-29 04:40] LABS: BASOPHILS # (AUTO) 0.1 (0.0-0.1); BASOPHILS % 0.6 % (0.0-1.0); EOSINOPHILS # (AUTO) 0.6 (0.0-0.4); HEMATOCRIT 32.9 % (34.2-44.1); HEMOGLOBIN 9.8 g/dL (12.0-16.0); LYMPHOCYTES # (AUTO) 2.2 (1.0-3.2); LYMPHOCYTES % 23.2 % (18.0-39.1); MEAN CORPUSCULAR HEMOGLOBIN 26.1 pg (28-32); MEAN CORPUSCULAR HGB CONC 29.8 g/dL (31-35); MEAN CORPUSCULAR VOLUME 87.5 fL (81-99); MONOCYTES # (AUTO) 0.8 (0.2-0.8); MONOCYTES % 8.4 % (4.4-11.3); NEUTROPHILS # (AUTO) 5.7 (2.1-6.9); NEUTROPHILS % 61.5 % (38.7-80.0); PLATELET COUNT 444 x10e3/uL (140-360); RED BLOOD COUNT 3.76 x10e6/uL (3.6-5.1); RED CELL DISTRIBUTION WIDTH 18.3 % (11.7-14.4)
[2022-01-29 04:52] LABS: ANION GAP 14.5 mmol/L (8-16); CALCIUM 9.2 mg/dL (8.4-10.2); CREATININE, SERUM 0.6 mg/dL (0.57-1.11); MAGNESIUM 1.6 MG/DL (1.3-2.1); POTASSIUM 3.5 mmol/L (3.5-5.1)
[2022-01-29] MEDS: PANTOPRAZOLE SOD 40 MG TABEC PO SCH (06:10)
[2022-01-29 08:00] VITALS: BP 149/84
[2022-01-29 08:03] VITALS: BP 149/84
[2022-01-29] MEDS: ASPIRIN 81 MG CHEW TAB PO SCH (09:06)
[2022-01-29] MEDS: DILTIAZEM HCL CR 120MG TAB PO SCH (09:06)
[2022-01-29] MEDS: FAMOTIDINE 20 MG/2 ML VIAL IV SCH ×2 (09:07→19:48)
[2022-01-29] MEDS: AMIODARONE HCL 200 MG TAB PO SCH (09:07)
[2022-01-29] MEDS: HYDROCODONE/APAP 10MG-325MG TAB PO PRN ×2 (09:07→17:08)
[2022-01-29 11:30] VITALS: BP 148/86
[2022-01-29 15:25] VITALS: BP 145/90
[2022-01-29] MEDS: RIVAROXABAN 20 MG TABLET PO SCH (16:22)
[2022-01-29 20:00] VITALS: BP 165/94
[2022-01-29 21:00] VITALS: BP 165/94
[2022-01-30] MEDS: HYDROMORPHONE 1MG/1ML INJ IV PRN ×3 (06:15→15:20)
[2022-01-30] MEDS: ONDANSETRON HCL INJ 2MG/ML 2ML 2 MG/ML VIAL IV PRN ×3 (06:15→15:20)
[2022-01-30] MEDS: PANTOPRAZOLE SOD 40 MG TABEC PO SCH (06:21)
[2022-01-30 07:58] VITALS: BP 144/88
[2022-01-30 08:00] VITALS: BP 144/88
[2022-01-30] MEDS: DILTIAZEM HCL CR 120MG TAB PO SCH (08:49)
[2022-01-30] MEDS: AMIODARONE HCL 200 MG TAB PO SCH (08:49)
[2022-01-30] MEDS: ASPIRIN 81 MG CHEW TAB PO SCH (08:49)
[2022-01-30] MEDS: FAMOTIDINE 20 MG/2 ML VIAL IV SCH (08:50)
[2022-01-30] MEDS: HYDROCODONE/APAP 10MG-325MG TAB PO PRN (08:51)
[2022-01-30] MEDS ORDERED: DILTIAZEM ER120 MG PO (13:09)
[2022-01-30] MEDS ORDERED: HYDROCODON-ACE1 EAC9 PO (13:09)
[2022-01-30] MEDS ORDERED: XARELTO10 MG PO (13:09)
[2022-01-30] MEDS ORDERED: ASPIRIN CHEW81 MG PO (13:09)
== END 2022-01-30 17:00 | DRG 493 ==
LOC: ER 07:45 → ERHOLD 10:16 → ICU 11:57 → MED/SURG 01-27 16:08
PROVIDERS: ADMIT Internal Medicine; ATTEND Internal Medicine
PROC: 02HV33Z Insertion of Infusion Device into Superior Vena Cava, Percutaneous Approach (ICD-10-PCS; principal; 2022-01-24)
PROC: 3E043XZ Introduction of Vasopressor into Central Vein, Percutaneous Approach (ICD-10-PCS; 2022-01-24)
PROC: 0QSG04Z Reposition Right Tibia with Internal Fixation Device, Open Approach (ICD-10-PCS; 2022-01-25)
PROC: 0QSJ0ZZ Reposition Right Fibula, Open Approach (ICD-10-PCS; 2022-01-25)
PROC: 30243N1 Transfusion of Nonautologous Red Blood Cells into Central Vein, Percutaneous Approach (ICD-10-PCS; 2022-01-25)
DX: S82.191A Other fracture of upper end of right tibia, initial encounter for closed fracture (principal); N17.9 Acute kidney failure, unspecified; S82.831A Other fracture of upper and lower end of right fibula, initial encounter for closed fracture; E03.9 Hypothyroidism, unspecified; I49.5 Sick sinus syndrome; I95.9 Hypotension, unspecified; I95.2 Hypotension due to drugs; E87.6 Hypokalemia; R55 Syncope and collapse; Y93.89 Activity, other specified; I10 Essential (primary) hypertension; E66.9 Obesity, unspecified; I48.0 Paroxysmal atrial fibrillation; K21.9 Gastro-esophageal reflux disease without esophagitis; E78.5 Hyperlipidemia, unspecified; I25.10 Atherosclerotic heart disease of native coronary artery without angina pectoris; M17.11 Unilateral primary osteoarthritis, right knee; T46.5X5A Adverse effect of other antihypertensive drugs, initial encounter; W10.8XXA Fall (on) (from) other stairs and steps, initial encounter; Z95.5 Presence of coronary angioplasty implant and graft; Z86.19 Personal history of other infectious and parasitic diseases; Z87.891 Personal history of nicotine dependence; Z95.810 Presence of automatic (implantable) cardiac defibrillator; Z90.49 Acquired absence of other specified parts of digestive tract; Z88.0 Allergy status to penicillin; Z88.2 Allergy status to sulfonamides; Z88.8 Allergy status to other drugs, medicaments and biological substances; Z68.31 Body mass index [BMI] 31.0-31.9, adult; Y92.018 Other place in single-family (private) house as the place of occurrence of the external cause; Z20.822 Contact with and (suspected) exposure to COVID-19
CPT/HCPCS: 0223U; 36415; 51700; 70450; 71045; 72125; 76000; 80048; 80053; 81001; 82550; 82553; 82948; 83605; 83735; 83880; 84484; 85025; 85610; 85730; 86850; 86900; 86920; 87040; 87086; 93005; 94799; 99251; 99285; C1713; J0360; J1100; J1170; J2001; J2250; J2270; J2405; J3010; J3370; J3480; J7030; J7040; J7050; P9016

== ENCOUNTER 2022-07-06 17:45 | Inpatient (IN) | payer MEDICARE ==
[~2022-07-06] VITALS: Ht 162.6 cm; Wt 94.4 kg
[~2022-07-06 17:45] MED LIST changes: +ASPIRIN CHEW81 MG PO; +CIPRO500 MG PO; +CIPROFLOXACIN500 MG PO; +DILTIAZEM ER120 MG PO; +FEROSUL325 MG PO; +HYDROCODON-ACE1 EAC9 PO; +MORPHINE IV
[2022-07-06 18:47] LABS: BASOPHILS # (AUTO) 0.1 (0.0-0.1); BASOPHILS % 0.5 % (0.0-1.0); EOSINOPHILS # (AUTO) 0.2 (0.0-0.4); HEMATOCRIT 38.9 % (34.2-44.1); HEMOGLOBIN 10.6 g/dL (12.0-16.0); LYMPHOCYTES # (AUTO) 2.6 (1.0-3.2); LYMPHOCYTES % 28.6 % (18.0-39.1); MEAN CORPUSCULAR HEMOGLOBIN 22.7 pg (28-32); MEAN CORPUSCULAR HGB CONC 27.2 g/dL (31-35); MEAN CORPUSCULAR VOLUME 83.5 fL (81-99); MONOCYTES # (AUTO) 0.5 (0.2-0.8); MONOCYTES % 5.4 % (4.4-11.3); NEUTROPHILS # (AUTO) 5.8 (2.1-6.9); NEUTROPHILS % 63.2 % (38.7-80.0); PLATELET COUNT 425 x10e3/uL (140-360); RED BLOOD COUNT 4.66 x10e6/uL (3.6-5.1); RED CELL DISTRIBUTION WIDTH 17.4 % (11.7-14.4)
[2022-07-06] MEDS ORDERED: HYDRALAZINE HCL 20 MG/ML VIAL IV STA (18:56)
[2022-07-06] MEDS ORDERED: HYDROCODONE/APAP 5MG-325MG TAB PO ONE (19:00)
[2022-07-06 19:05] LABS: ALANINE AMINOTRANSFERASE 27 IU/L (0-55); ALBUMIN 3.8 g/dL (3.5-5.0); ALBUMIN/GLOBULIN RATIO 0.9 (0.8-2.0); ALKALINE PHOSPHATASE 191 IU/L (40-150); ANION GAP 12.8 mmol/L (8-16); BLOOD UREA NITROGEN 12 mg/dL (7-26); BUN/CREATININE RATIO 13 (6-25); CALCIUM 9.3 mg/dL (8.4-10.2); CARBON DIOXIDE 24 mmol/L (22-29); CHLORIDE 106 mmol/L (98-107); CREATINE KINASE 27 IU/L (29-168); CREATININE, SERUM 0.95 mg/dL (0.57-1.11); GLUCOSE 87 mg/dL (74-118); POTASSIUM 3.8 mmol/L (3.5-5.1); SODIUM 139 mmol/L (136-145)
[2022-07-06] MEDS ORDERED: Morphine 4mg INJECTION 4 MG/ML INJ IV ONE (19:15)
[2022-07-06] MEDS ORDERED: ONDANSETRON HCL INJ 2MG/ML 2ML 2 MG/ML VIAL IV STA (19:15)
[2022-07-06] MEDS ORDERED: SODIUM CHLORIDE FLUSH 10 ML SYR INJ PRN (22:30)
[2022-07-06] MEDS ORDERED: ASPIRIN 81 MG CHEW TAB PO ONE (22:30)
[2022-07-07] VITALS (8 sets, daily range): BP systolic 124–167; BP diastolic 86–101
[2022-07-07] MEDS: Morphine 4mg INJECTION 4 MG/ML INJ IV PRN ×5 (02:43→22:29)
[2022-07-07 06:15] LABS: BASOPHILS # (AUTO) 0.1 (0.0-0.1); BASOPHILS % 0.6 % (0.0-1.0); EOSINOPHILS # (AUTO) 0.1 (0.0-0.4); EOSINOPHILS % 1.3 % (0.0-6.0); HEMATOCRIT 35.9 % (34.2-44.1); HEMOGLOBIN 10.3 g/dL (12.0-16.0); LYMPHOCYTES # (AUTO) 2.2 (1.0-3.2); LYMPHOCYTES % 20.6 % (18.0-39.1); MEAN CORPUSCULAR HEMOGLOBIN 22.7 pg (28-32); MEAN CORPUSCULAR HGB CONC 28.7 g/dL (31-35); MEAN CORPUSCULAR VOLUME 79.1 fL (81-99); MONOCYTES # (AUTO) 0.8 (0.2-0.8); NEUTROPHILS # (AUTO) 7.6 (2.1-6.9); NEUTROPHILS % 70.1 % (38.7-80.0); PLATELET COUNT 392 x10e3/uL (140-360); RED BLOOD COUNT 4.54 x10e6/uL (3.6-5.1); RED CELL DISTRIBUTION WIDTH 17.2 % (11.7-14.4)
[2022-07-07 06:39] LABS: ALBUMIN 3.6 g/dL (3.5-5.0); CALCIUM 9.1 mg/dL (8.4-10.2); CREATININE, SERUM 0.86 mg/dL (0.57-1.11)
[2022-07-07 07:11] LABS: CREATINE KINASE 23 IU/L (29-168)
[2022-07-07] MEDS: ONDANSETRON HCL INJ 2MG/ML 2ML 2 MG/ML VIAL IV PRN ×3 (08:06→18:11)
[2022-07-07] MEDS ORDERED: MAALOX/LIDOCAINE/BENADRYL/NYST 30 ML BTL PO PRN (08:45)
[2022-07-07] MEDS ORDERED: CALCIUM CARBONATE 500 MG CHEWABLE TABS PO PRN (08:45)
[2022-07-07] MEDS ORDERED: PANTOPRAZOLE SOD 40 MG TABEC PO ONE (09:30)
[2022-07-07] MEDS: ASPIRIN 81 MG ENTERIC COATED PO SCH (09:32)
[2022-07-07] MEDS: DOCUSATE SODIUM 100 MG CAP PO SCH (09:33)
[2022-07-07] MEDS: SENNOSIDES 8.6 MG TAB PO SCH (09:33)
[2022-07-07 12:27] LABS: FERRITIN 32.03 ng/mL (4.63-204.00)
[2022-07-07 14:20] LABS: CREATINE KINASE 25 IU/L (29-168)
[2022-07-08] VITALS (8 sets, daily range): BP systolic 127–179; BP diastolic 82–117
[2022-07-08] MEDS: Morphine 4mg INJECTION 4 MG/ML INJ IV PRN ×5 (03:04→21:06)
[2022-07-08 05:58] LABS: BASOPHILS # (AUTO) 0.1 (0.0-0.1); BASOPHILS % 0.4 % (0.0-1.0); EOSINOPHILS # (AUTO) 0.1 (0.0-0.4); EOSINOPHILS % 0.9 % (0.0-6.0); HEMATOCRIT 37.7 % (34.2-44.1); HEMOGLOBIN 10.9 g/dL (12.0-16.0); LYMPHOCYTES # (AUTO) 2.7 (1.0-3.2); MEAN CORPUSCULAR HEMOGLOBIN 22.7 pg (28-32); MEAN CORPUSCULAR HGB CONC 28.9 g/dL (31-35); MEAN CORPUSCULAR VOLUME 78.5 fL (81-99); MONOCYTES # (AUTO) 0.7 (0.2-0.8); MONOCYTES % 6.1 % (4.4-11.3); NEUTROPHILS # (AUTO) 7.8 (2.1-6.9); NEUTROPHILS % 68.2 % (38.7-80.0); PLATELET COUNT 420 x10e3/uL (140-360); RED CELL DISTRIBUTION WIDTH 17.2 % (11.7-14.4)
[2022-07-08 06:23] LABS: ALBUMIN 3.8 g/dL (3.5-5.0); ALBUMIN/GLOBULIN RATIO 1.1 (0.8-2.0); CALCIUM 9.5 mg/dL (8.4-10.2); CREATININE, SERUM 0.84 mg/dL (0.57-1.11); MAGNESIUM 2.1 MG/DL (1.3-2.1)
[2022-07-08] MEDS: PANTOPRAZOLE SOD 40 MG TABEC PO SCH (07:30)
[2022-07-08] MEDS: ONDANSETRON HCL INJ 2MG/ML 2ML 2 MG/ML VIAL IV PRN ×4 (07:52→21:06)
[2022-07-08] MEDS: DOCUSATE SODIUM 100 MG CAP PO SCH (08:38)
[2022-07-08] MEDS: ASPIRIN 81 MG ENTERIC COATED PO SCH (08:38)
[2022-07-08] MEDS: SENNOSIDES 8.6 MG TAB PO SCH (08:39)
[2022-07-08] MEDS: FOLIC ACID/CYANOCOB/PYRIDOXINE TAB PO SCH (08:39)
[2022-07-08] MEDS: IRON SUCROSE 100 MG in SODIUM CHLORIDE 0.9% 100 ML IV SCH (10:02)
[2022-07-08] MEDS ORDERED: SODIUM CHLORIDE 0.9% 100 ML ONE (10:20)
[2022-07-08] MEDS: DONNATAL/LIDOCAINE/MAALOX 30 ML SUSP PO PRN (13:00)
[2022-07-08] MEDS ORDERED: LIDOCAINE HCL 2% LOCAL INJ 5 ML SDV VIAL INJ ONE (13:18)
[2022-07-08] MEDS ORDERED: PROPOFOL IV EMULSION 10 MG/ML 20 ML VIAL ONE (13:18)
[2022-07-08] MEDS ORDERED: GLYCOPYRROLATE INJ 0.2 MG/ML VIAL ONE (13:24)
[2022-07-08] MEDS ORDERED: PHENYLEPHRINE HCL 1% 10 MG/ML VIAL ONE (13:24)
[2022-07-08] MEDS ORDERED: METOCLOPRAMIDE HCL 10 MG/2ML VIAL ONE (13:24)
[2022-07-08] MEDS ORDERED: POVIDONE IODINE 0.05% 0.05 % ML PO ONE (13:24)
[2022-07-08 13:35] LABS: CREATINE KINASE 11 IU/L (29-168)
[2022-07-08] MEDS: METOCLOPRAMIDE HCL 10 MG/2ML VIAL IV SCH (17:12)
[2022-07-08] MEDS ORDERED: METOPROLOL SUCCINATE 50 MG TAB XL PO ONE (20:30)
[2022-07-08] MEDS ORDERED: AMIODARONE HCL 200 MG TAB PO ONE (20:30)
[2022-07-08] MEDS ORDERED: DILTIAZEM HCL ER 120 MG CAP PO SCH (20:30)
[2022-07-09] VITALS (7 sets, daily range): BP systolic 141–166; BP diastolic 88–109
[2022-07-09] MEDS: ONDANSETRON HCL INJ 2MG/ML 2ML 2 MG/ML VIAL IV PRN ×2 (01:00→05:37)
[2022-07-09] MEDS: Morphine 4mg INJECTION 4 MG/ML INJ IV PRN ×2 (01:00→05:37)
[2022-07-09] MEDS: METOCLOPRAMIDE HCL 10 MG/2ML VIAL IV SCH ×4 (01:00→17:58)
[2022-07-09 07:01] LABS: BASOPHILS # (AUTO) 0.1 (0.0-0.1); BASOPHILS % 0.4 % (0.0-1.0); EOSINOPHILS # (AUTO) 0.1 (0.0-0.4); EOSINOPHILS % 0.7 % (0.0-6.0); HEMATOCRIT 37.6 % (34.2-44.1); HEMOGLOBIN 10.9 g/dL (12.0-16.0); LYMPHOCYTES # (AUTO) 2.1 (1.0-3.2); LYMPHOCYTES % 15.9 % (18.0-39.1); MEAN CORPUSCULAR HEMOGLOBIN 22.9 pg (28-32); MONOCYTES % 7.4 % (4.4-11.3); NEUTROPHILS # (AUTO) 9.7 (2.1-6.9); NEUTROPHILS % 75.1 % (38.7-80.0); PLATELET COUNT 439 x10e3/uL (140-360); RED BLOOD COUNT 4.76 x10e6/uL (3.6-5.1); RED CELL DISTRIBUTION WIDTH 17.3 % (11.7-14.4)
[2022-07-09 07:34] LABS: ALBUMIN 3.6 g/dL (3.5-5.0); ALBUMIN/GLOBULIN RATIO 0.8 (0.8-2.0); ANION GAP 10.1 mmol/L (8-16); CALCIUM 9.6 mg/dL (8.4-10.2); CREATININE, SERUM 0.82 mg/dL (0.57-1.11); POTASSIUM 4.1 mmol/L (3.5-5.1)
[2022-07-09] MEDS: SENNOSIDES 8.6 MG TAB PO SCH (09:00)
[2022-07-09] MEDS: DOCUSATE SODIUM 100 MG CAP PO SCH (09:49)
[2022-07-09] MEDS: FOLIC ACID/CYANOCOB/PYRIDOXINE TAB PO SCH (09:49)
[2022-07-09] MEDS: ASPIRIN 81 MG ENTERIC COATED PO SCH (09:50)
[2022-07-09] MEDS: PANTOPRAZOLE SOD 40 MG TABEC PO SCH (09:50)
[2022-07-09] MEDS: METOPROLOL SUCCINATE 50 MG TAB XL PO SCH (09:50)
[2022-07-09] MEDS: IRON SUCROSE 100 MG in SODIUM CHLORIDE 0.9% 100 ML IV SCH (09:51)
[2022-07-09] MEDS: AMIODARONE HCL 200 MG TAB PO SCH (09:51)
[2022-07-09] MEDS: DILTIAZEM HCL ER 120 MG CAP PO SCH (09:52)
[2022-07-09] MEDS ORDERED: FUROSEMIDE INJ 10 MG/ML 4 ML VIAL IV ONE (11:30)
[2022-07-09 12:19] LABS: AMYLASE 45 U/L (25-125); LIPASE 22 U/L (8-78)
[2022-07-09] MEDS: ACETAMINOPHEN 325 MG TAB PO PRN ×2 (12:27→16:23)
[2022-07-09] MEDS ORDERED: RIVAROXABAN 20 MG TABLET PO SCH (17:00)
[2022-07-10] VITALS: BP 139/98
[2022-07-10] MEDS: METOCLOPRAMIDE HCL 10 MG/2ML VIAL IV SCH ×2 (00:21→05:35)
[2022-07-10 04:30] VITALS: BP 125/91
[2022-07-10 06:02] LABS: BASOPHILS # (AUTO) 0.1 (0.0-0.1); BASOPHILS % 0.5 % (0.0-1.0); EOSINOPHILS # (AUTO) 0.1 (0.0-0.4); EOSINOPHILS % 0.6 % (0.0-6.0); HEMATOCRIT 41.8 % (34.2-44.1); HEMOGLOBIN 12.2 g/dL (12.0-16.0); LYMPHOCYTES % 16.2 % (18.0-39.1); MEAN CORPUSCULAR HEMOGLOBIN 22.8 pg (28-32); MEAN CORPUSCULAR HGB CONC 29.2 g/dL (31-35); MONOCYTES # (AUTO) 1.3 (0.2-0.8); NEUTROPHILS # (AUTO) 13.8 (2.1-6.9); NEUTROPHILS % 75.2 % (38.7-80.0); PLATELET COUNT 550 x10e3/uL (140-360); RED BLOOD COUNT 5.36 x10e6/uL (3.6-5.1); RED CELL DISTRIBUTION WIDTH 18.3 % (11.7-14.4)
[2022-07-10 06:28] LABS: ALBUMIN 3.9 g/dL (3.5-5.0); ALBUMIN/GLOBULIN RATIO 0.8 (0.8-2.0); ANION GAP 17.6 mmol/L (8-16); CALCIUM 10.2 mg/dL (8.4-10.2); CREATININE, SERUM 1.05 mg/dL (0.57-1.11); POTASSIUM 3.6 mmol/L (3.5-5.1)
[2022-07-10 06:53] LABS: AMYLASE 39 U/L (25-125); LIPASE 25 U/L (8-78)
[2022-07-10 08:01] LABS: PLATELET ESTIMATE SLIGHTLY INCREASED; RBC MORPHOLOGY COMMENT NORMAL
[2022-07-10 08:02] LABS: MICROCYTOSIS SLIGHT; PLATELET MORPHOLOGY COMMENT FEW GIANT
[2022-07-10] MEDS ORDERED: REGLAN10 MG PO (08:27)
[2022-07-10] MEDS ORDERED: PANTOPRAZOLE SO40 MG PO (08:27)
[2022-07-10] MEDS ORDERED: FOLIC ACID0.8 MG PO (08:27)
[2022-07-10 08:58] VITALS: BP 125/91
[2022-07-10 09:27] VITALS: BP 140/99
[2022-07-10] MEDS ORDERED: SODIUM CHLORIDE 0.9% 100 ML ONE (09:29)
[2022-07-10] MEDS: METOPROLOL SUCCINATE 50 MG TAB XL PO SCH (09:45)
[2022-07-10] MEDS: DILTIAZEM HCL ER 120 MG CAP PO SCH (09:46)
[2022-07-10] MEDS: FOLIC ACID/CYANOCOB/PYRIDOXINE TAB PO SCH (09:47)
[2022-07-10] MEDS: DOCUSATE SODIUM 100 MG CAP PO SCH (09:47)
[2022-07-10] MEDS: AMIODARONE HCL 200 MG TAB PO SCH (09:47)
[2022-07-10] MEDS: SENNOSIDES 8.6 MG TAB PO SCH (09:47)
[2022-07-10] MEDS: PANTOPRAZOLE SOD 40 MG TABEC PO SCH (09:48)
[2022-07-10] MEDS: ACETAMINOPHEN 325 MG TAB PO PRN (09:49)
[2022-07-10] MEDS: DONNATAL/LIDOCAINE/MAALOX 30 ML SUSP PO PRN (09:51)
[2022-07-10] MEDS: IRON SUCROSE 100 MG in SODIUM CHLORIDE 0.9% 100 ML IV SCH (09:51)
[2022-07-10] MEDS ORDERED: METOCLOPRAMIDE HCL 10 MG TAB PO SCH (12:30)
[2022-07-10] MEDS ORDERED: ONDANSETRON HCL 4 MG ORAL DISINTEGRATING TAB PO PRN (12:30)
[2022-07-10 12:36] LABS: BASOPHILS # (AUTO) 0.1 (0.0-0.1); BASOPHILS % 0.3 % (0.0-1.0); EOSINOPHILS # (AUTO) 0.1 (0.0-0.4); EOSINOPHILS % 0.3 % (0.0-6.0); HEMATOCRIT 44.6 % (34.2-44.1); HEMOGLOBIN 12.2 g/dL (12.0-16.0); LYMPHOCYTES # (AUTO) 2.8 (1.0-3.2); LYMPHOCYTES % 14.3 % (18.0-39.1); MEAN CORPUSCULAR HEMOGLOBIN 22.9 pg (28-32); MEAN CORPUSCULAR HGB CONC 27.4 g/dL (31-35); MEAN CORPUSCULAR VOLUME 83.7 fL (81-99); MONOCYTES # (AUTO) 1.2 (0.2-0.8); MONOCYTES % 6.2 % (4.4-11.3); NEUTROPHILS # (AUTO) 15.3 (2.1-6.9); NEUTROPHILS % 78.5 % (38.7-80.0); PLATELET COUNT 433 x10e3/uL (140-360); RED BLOOD COUNT 5.33 x10e6/uL (3.6-5.1); RED CELL DISTRIBUTION WIDTH 18.5 % (11.7-14.4)
[2022-07-10 12:54] LABS: COLOR,URINE YELLOW (YELLOW)
[2022-07-10 12:55] LABS: BACTERIA,URINE MODERATE /HPF; CLARITY,URINE CLOUDY (CLEAR); EPITHELIAL CELLS,URINE FEW /LPF; KETONES,URINE TRACE (NEGATIVE); LEUKOCYTE ESTERASE ,URINE NEGATIVE (NEGATIVE); NITRITE,URINE NEGATIVE (NEGATIVE); PROTEIN,URINE DIPSTICK 1+ (NEGATIVE); URINE UROBILINOGEN 0.2 mg/dL (0.2 - 1)
[2022-07-10 12:56] VITALS: BP 150/106
[2022-07-10] MEDS ORDERED: METOCLOPRAMIDE HCL 10 MG TAB ONE (13:25)
== END 2022-07-10 15:04 | disposition home or self-care (01) | DRG 391 ==
LOC: ER 18:21 → ERHOLD 22:30 → MED/SURG2 23:54 → OBSVTOIN 07-08 11:30
PROVIDERS: ADMIT Internal Medicine; ATTEND Internal Medicine
PROC: 0DB78ZX Excision of Stomach, Pylorus, Via Natural or Artificial Opening Endoscopic, Diagnostic (ICD-10-PCS; principal; 2022-07-08 15:08)
PROC: 0D718ZZ Dilation of Upper Esophagus, Via Natural or Artificial Opening Endoscopic (ICD-10-PCS; 2022-07-08 15:08)
DX: K31.84 Gastroparesis (principal); I50.33 Acute on chronic diastolic (congestive) heart failure; E78.5 Hyperlipidemia, unspecified; I48.0 Paroxysmal atrial fibrillation; I25.10 Atherosclerotic heart disease of native coronary artery without angina pectoris; B19.20 Unspecified viral hepatitis C without hepatic coma; F31.9 Bipolar disorder, unspecified; E03.9 Hypothyroidism, unspecified; D50.9 Iron deficiency anemia, unspecified; I11.0 Hypertensive heart disease with heart failure; K21.00 Gastro-esophageal reflux disease with esophagitis, without bleeding; Z68.35 Body mass index [BMI] 35.0-35.9, adult; E66.9 Obesity, unspecified; Z95.5 Presence of coronary angioplasty implant and graft; Z87.891 Personal history of nicotine dependence; Z95.0 Presence of cardiac pacemaker; Z88.0 Allergy status to penicillin; Z88.2 Allergy status to sulfonamides; Z20.822 Contact with and (suspected) exposure to COVID-19; Z79.01 Long term (current) use of anticoagulants
CPT/HCPCS: 36415; 43239; 43450; 71045; 74176; 76705; 80053; 81001; 82150; 82550; 82553; 82607; 82728; 82746; 83540; 83690; 83735; 83880; 84466; 84484; 85025; 88305; 88342; 93005; 94760; 99284; G0378; J0360; J1756; J1940; J2001; J2270; J2370; J2405; J2765; J7050

== ENCOUNTER 2022-07-22 12:06 | Emergency (ER) | payer MEDICARE ==
[~2022-07-22] VITALS: Ht 162.6 cm; Wt 94.3 kg
[~2022-07-22 12:06] MED LIST changes: +FOLIC ACID0.8 MG PO; +PANTOPRAZOLE SO40 MG PO; +REGLAN10 MG PO
[2022-07-22] MEDS ORDERED: SODIUM CHLORIDE 0.9% 1000ML 1,000 ML IV STA (12:24)
[2022-07-22 12:33] LABS: BASOPHILS % 0.2 % (0.0-1.0); EOSINOPHILS % 0.1 % (0.0-6.0); HEMATOCRIT 43.7 % (34.2-44.1); HEMOGLOBIN 13.3 g/dL (12.0-16.0); LYMPHOCYTES # (AUTO) 2.1 (1.0-3.2); MEAN CORPUSCULAR HGB CONC 30.4 g/dL (31-35); MEAN CORPUSCULAR VOLUME 78.7 fL (81-99); MONOCYTES # (AUTO) 1.2 (0.2-0.8); MONOCYTES % 6.4 % (4.4-11.3); NEUTROPHILS # (AUTO) 15.4 (2.1-6.9); PLATELET COUNT 548 x10e3/uL (140-360); RED BLOOD COUNT 5.55 x10e6/uL (3.6-5.1); RED CELL DISTRIBUTION WIDTH 21.2 % (11.7-14.4)
[2022-07-22 12:49] LABS: ALBUMIN 4.7 g/dL (3.5-5.0); ALBUMIN/GLOBULIN RATIO 1.1 (0.8-2.0); ANION GAP 18.8 mmol/L (8-16); CALCIUM 10.2 mg/dL (8.4-10.2); CREATININE, SERUM 1.25 mg/dL (0.57-1.11)
[2022-07-22 12:50] LABS: POTASSIUM 2.8 mmol/L (3.5-5.1)
[2022-07-22] MEDS ORDERED: HALOPERIDOL LACTATE 5 MG/ML VIAL IM ONE (13:00)
[2022-07-22] MEDS ORDERED: MAGNESIUM SULF 1GRAM/DEXTROSE 100 ML IV ONE (13:00)
[2022-07-22] MEDS ORDERED: POTASSIUM CHLORIDE 20MEQ/100ML 100 ML IV ONE (13:00)
[2022-07-22] MEDS ORDERED: KCL 20MEQ/.9 SOD CHL 1,000 ML IV ONE (13:15)
[2022-07-22] MEDS ORDERED: DICYCLOMINE HCL 20 MG/2 ML VIAL IM ONE (13:45)
[2022-07-22 14:52] LABS: CLARITY,URINE HAZY (CLEAR); COLOR,URINE YELLOW (YELLOW); KETONES,URINE 1+ (NEGATIVE); NITRITE,URINE NEGATIVE (NEGATIVE); PROTEIN,URINE DIPSTICK >=300 (NEGATIVE)
[2022-07-22 14:53] LABS: LEUKOCYTE ESTERASE ,URINE TRACE (NEGATIVE); URINE UROBILINOGEN 0.2 mg/dL (0.2 - 1)
[2022-07-22 15:14] LABS: BACTERIA,URINE FEW /HPF
[2022-07-22 15:15] LABS: EPITHELIAL CELLS,URINE FEW /LPF; HYALINE CASTS 0-1 (0-1)
[2022-07-22 15:52] VITALS: BP 150/73
[2022-07-22] MEDS ORDERED: PROMETHAZINE 12.5MG/ NACL 0.9% 12.5 MG/50 ML BAG IV ONE (16:00)
== END 2022-07-22 15:55 | disposition home or self-care (01) ==
LOC: ER 12:13
DX: R50.9 Fever, unspecified (principal); R10.13 Epigastric pain; R11.0 Nausea; I10 Essential (primary) hypertension; I50.9 Heart failure, unspecified; I48.91 Unspecified atrial fibrillation; E03.9 Hypothyroidism, unspecified; E78.5 Hyperlipidemia, unspecified; D64.9 Anemia, unspecified; F41.9 Anxiety disorder, unspecified; K21.9 Gastro-esophageal reflux disease without esophagitis; Z95.810 Presence of automatic (implantable) cardiac defibrillator
CPT/HCPCS: 36415; 80053; 81001; 83690; 85025; 99283; J0500; J1630; J2550; J3475; J7030

== ENCOUNTER 2022-07-26 16:29 | Inpatient (IN) | payer MEDICARE ==
[~2022-07-26] VITALS: Ht 162.6 cm; Wt 94.3 kg
[2022-07-26 17:01] LABS: BASOPHILS # (AUTO) 0.1 (0.0-0.1); BASOPHILS % 0.4 % (0.0-1.0); EOSINOPHILS % 0.1 % (0.0-6.0); HEMATOCRIT 42.7 % (34.2-44.1); HEMOGLOBIN 12.7 g/dL (12.0-16.0); LYMPHOCYTES # (AUTO) 2.4 (1.0-3.2); LYMPHOCYTES % 13.5 % (18.0-39.1); MEAN CORPUSCULAR HEMOGLOBIN 24.1 pg (28-32); MEAN CORPUSCULAR HGB CONC 29.7 g/dL (31-35); MEAN CORPUSCULAR VOLUME 81.2 fL (81-99); MONOCYTES # (AUTO) 1.1 (0.2-0.8); MONOCYTES % 6.2 % (4.4-11.3); NEUTROPHILS # (AUTO) 13.9 (2.1-6.9); NEUTROPHILS % 79.2 % (38.7-80.0); PLATELET COUNT 433 x10e3/uL (140-360); RED BLOOD COUNT 5.26 x10e6/uL (3.6-5.1); RED CELL DISTRIBUTION WIDTH 21.7 % (11.7-14.4)
[2022-07-26] MEDS ORDERED: METOCLOPRAMIDE HCL 10 MG/2ML VIAL IV ONE (17:15)
[2022-07-26 17:19] LABS: ALBUMIN 4.3 g/dL (3.5-5.0); ALBUMIN/GLOBULIN RATIO 1.1 (0.8-2.0); ANION GAP 21.6 mmol/L (8-16); CALCIUM 9.8 mg/dL (8.4-10.2); CREATININE, SERUM 1.11 mg/dL (0.57-1.11); LIPASE 19 U/L (8-78)
[2022-07-26 17:22] LABS: POTASSIUM 2.6 mmol/L (3.5-5.1)
[2022-07-26] MEDS ORDERED: KCL 20MEQ/.9 SOD CHL 1,000 ML IV SCH (18:00)
[2022-07-26] MEDS: SODIUM CHLORIDE 0.9% 1000ML 1,000 ML IV SCH ×2 (18:15→22:34)
[2022-07-26 18:58] LABS: CLARITY,URINE SL CLOUDY (CLEAR); COLOR,URINE YELLOW (YELLOW); KETONES,URINE 1+ (NEGATIVE); LEUKOCYTE ESTERASE ,URINE SMALL (NEGATIVE); NITRITE,URINE NEGATIVE (NEGATIVE); PROTEIN,URINE DIPSTICK TRACE (NEGATIVE); URINE UROBILINOGEN 0.2 mg/dL (0.2 - 1)
[2022-07-26 19:01] LABS: AMPHETAMINES SCREEN,URINE NEGATIVE (NEGATIVE); BENZODIAZEPINES SCREEN,URINE NEGATIVE (NEGATIVE); PHENCYCLIDINE SCREEN,URINE NEGATIVE (NEGATIVE)
[2022-07-26 19:09] LABS: BACTERIA,URINE MANY /HPF; EPITHELIAL CELLS,URINE FEW /LPF
[2022-07-26 20:00] VITALS: BP 182/96
[2022-07-26] MEDS ORDERED: ONDANSETRON HCL INJ 2MG/ML 2ML 2 MG/ML VIAL ONE (20:12)
[2022-07-26] MEDS: Morphine 4mg INJECTION 4 MG/ML INJ IV PRN (20:17)
[2022-07-26 20:50] VITALS: BP 182/96
[2022-07-26] MEDS ORDERED: POTASSIUM CHLORIDE 20 MEQ TAB CR PO STA (22:21)
[2022-07-26] MEDS ORDERED: Morphine 4mg INJECTION 4 MG/ML INJ IV ONE (22:30)
[2022-07-26] MEDS ORDERED: CIPROFLOXACIN 400 MG/D5W 200ML 200 ML IV SCH (22:30)
[2022-07-26 22:44] LABS: % IRON SATURATION 3 % (15-50); IRON 13 ug/dL (50-170); TOTAL IRON BINDING CAPACITY 393 ug/dL (261-478); TRANSFERRIN 281 mg/dL (180-382)
[2022-07-26] MEDS ORDERED: DONNATAL/LIDOCAINE/MAALOX 30 ML SUSP PO ONE ×2 (22:45→23:45)
[2022-07-26] MEDS ORDERED: CYCLOBENZAPRINE HCL 10 MG TAB PO STA (22:47)
[2022-07-26] MEDS ORDERED: LEVOFLOXACIN 500MG/D5W 100ML 100 ML IV ONE (23:15)
[2022-07-26] MEDS ORDERED: POTASSIUM CHLORIDE 20 MEQ TAB CR PO ONE (23:40)
[2022-07-26] MEDS ORDERED: LABETALOL HCL 5 MG/ML 20ML VIAL IV PRN (23:45)
[2022-07-26] MEDS: METOCLOPRAMIDE HCL 10 MG/2ML VIAL IV SCH (23:53)
[2022-07-27] VITALS (8 sets, daily range): BP systolic 153–182; BP diastolic 84–102
[2022-07-27] MEDS: Morphine 4mg INJECTION 4 MG/ML INJ IV PRN ×5 (02:35→20:19)
[2022-07-27 05:18] LABS: BASOPHILS # (AUTO) 0.1 (0.0-0.1); BASOPHILS % 0.5 % (0.0-1.0); EOSINOPHILS % 0.2 % (0.0-6.0); HEMATOCRIT 37.2 % (34.2-44.1); HEMOGLOBIN 10.8 g/dL (12.0-16.0); LYMPHOCYTES # (AUTO) 1.7 (1.0-3.2); LYMPHOCYTES % 15.5 % (18.0-39.1); MEAN CORPUSCULAR HEMOGLOBIN 24.4 pg (28-32); MONOCYTES # (AUTO) 0.7 (0.2-0.8); MONOCYTES % 6.4 % (4.4-11.3); NEUTROPHILS # (AUTO) 8.6 (2.1-6.9); PLATELET COUNT 338 x10e3/uL (140-360); RED BLOOD COUNT 4.43 x10e6/uL (3.6-5.1); RED CELL DISTRIBUTION WIDTH 21.3 % (11.7-14.4)
[2022-07-27 05:38] LABS: ALBUMIN 3.5 g/dL (3.5-5.0); ALBUMIN/GLOBULIN RATIO 1.1 (0.8-2.0); CALCIUM 8.4 mg/dL (8.4-10.2); CREATININE, SERUM 0.77 mg/dL (0.57-1.11); MAGNESIUM 1.7 MG/DL (1.3-2.1)
[2022-07-27 05:58] LABS: THYROID STIMULATING HORMONE 5.049 uIU/mL (0.350-4.940)
[2022-07-27] MEDS: METOCLOPRAMIDE HCL 10 MG/2ML VIAL IV SCH ×4 (06:42→23:38)
[2022-07-27 06:59] LABS: ANISOCYTOSIS MODERATE; HYPOCHROMASIA MODERATE; PLATELET ESTIMATE ADEQUATE; PLATELET MORPHOLOGY COMMENT NORMAL; RBC MORPHOLOGY COMMENT ABNORMAL
[2022-07-27] MEDS: SODIUM CHLORIDE 0.9% 1000ML 1,000 ML IV SCH ×2 (07:44→16:33)
[2022-07-27] MEDS ORDERED: IRON SUCROSE 100 MG in SODIUM CHLORIDE 0.9% 100 ML IV SCH (09:00)
[2022-07-27] MEDS ORDERED: CYCLOBENZAPRINE HCL 10 MG TAB PO SCH ×2 (09:00→21:00)
[2022-07-27] MEDS ORDERED: POTASSIUM CHLORIDE 20 MEQ TAB CR PO ONE ×2 (10:15→11:00)
[2022-07-27] MEDS ORDERED: MAGNESIUM SULFATE 2GM/50ML 50 ML IV ONE (10:15)
[2022-07-27] MEDS: ONDANSETRON HCL INJ 2MG/ML 2ML 2 MG/ML VIAL IV PRN ×2 (11:30→20:20)
[2022-07-27] MEDS: SUCRALFATE 1 GM TAB PO SCH ×3 (12:00→20:57)
[2022-07-27] MEDS: RIVAROXABAN 20 MG TABLET PO SCH (16:31)
[2022-07-27] MEDS: SERTRALINE HCL 100 MG TAB PO SCH (20:57)
[2022-07-27] MEDS: LEVOFLOXACIN 500MG/D5W 100ML 100 ML IV SCH (21:01)
[2022-07-27] MEDS: IRON SUCROSE 100 MG in SODIUM CHLORIDE 0.9% 100 ML IV SCH (21:02)
[2022-07-27] MEDS ORDERED: SODIUM CHLORIDE 0.9% 100 ML ONE (21:07)
[2022-07-28] VITALS (7 sets, daily range): BP systolic 144–178; BP diastolic 86–112
[2022-07-28] MEDS: ONDANSETRON HCL INJ 2MG/ML 2ML 2 MG/ML VIAL IV PRN ×2 (00:43→21:12)
[2022-07-28] MEDS: Morphine 4mg INJECTION 4 MG/ML INJ IV PRN ×3 (00:43→21:12)
[2022-07-28] MEDS: SODIUM CHLORIDE 0.9% 1000ML 1,000 ML IV SCH ×3 (02:19→18:15)
[2022-07-28 05:53] LABS: BASOPHILS % 0.3 % (0.0-1.0); EOSINOPHILS # (AUTO) 0.1 (0.0-0.4); EOSINOPHILS % 1.2 % (0.0-6.0); HEMATOCRIT 38.8 % (34.2-44.1); HEMOGLOBIN 11.3 g/dL (12.0-16.0); LYMPHOCYTES # (AUTO) 1.7 (1.0-3.2); LYMPHOCYTES % 19.3 % (18.0-39.1); MEAN CORPUSCULAR HEMOGLOBIN 24.8 pg (28-32); MEAN CORPUSCULAR HGB CONC 29.1 g/dL (31-35); MEAN CORPUSCULAR VOLUME 85.3 fL (81-99); MONOCYTES # (AUTO) 0.6 (0.2-0.8); MONOCYTES % 6.2 % (4.4-11.3); NEUTROPHILS # (AUTO) 6.5 (2.1-6.9); NEUTROPHILS % 72.8 % (38.7-80.0); PLATELET COUNT 326 x10e3/uL (140-360); RED BLOOD COUNT 4.55 x10e6/uL (3.6-5.1); RED CELL DISTRIBUTION WIDTH 21.8 % (11.7-14.4)
[2022-07-28] MEDS: LEVOTHYROXINE SODIUM 100 MCG TAB PO SCH (06:06)
[2022-07-28] MEDS: METOCLOPRAMIDE HCL 10 MG/2ML VIAL IV SCH ×3 (06:06→17:18)
[2022-07-28 06:20] LABS: ALANINE AMINOTRANSFERASE 54 IU/L (0-55); ALBUMIN 3.5 g/dL (3.5-5.0); ALKALINE PHOSPHATASE 128 IU/L (40-150); ANION GAP 14.7 mmol/L (8-16); BLOOD UREA NITROGEN < 5 mg/dL (7-26); CALCIUM 9.2 mg/dL (8.4-10.2); CARBON DIOXIDE 23 mmol/L (22-29); CHLORIDE 105 mmol/L (98-107); CREATININE, SERUM 0.64 mg/dL (0.57-1.11); GLUCOSE 74 mg/dL (74-118); MAGNESIUM 1.8 MG/DL (1.3-2.1); POTASSIUM 3.7 mmol/L (3.5-5.1); SODIUM 139 mmol/L (136-145)
[2022-07-28 06:22] LABS: BUN/CREATININE RATIO 8 (6-25)
[2022-07-28 07:32] LABS: ANISOCYTOSIS MODERATE; PLATELET ESTIMATE ADEQUATE; PLATELET MORPHOLOGY COMMENT NORMAL; RBC MORPHOLOGY COMMENT ABNORMAL
[2022-07-28 07:36] LABS: HYPOCHROMASIA SLIGHT
[2022-07-28] MEDS: DILTIAZEM HCL ER 120 MG CAP PO SCH (08:11)
[2022-07-28] MEDS: FERROUS SULFATE 325 MG TAB PO SCH (08:12)
[2022-07-28] MEDS: SUCRALFATE 1 GM TAB PO SCH ×4 (08:12→20:35)
[2022-07-28] MEDS: METOPROLOL SUCCINATE 50 MG TAB XL PO SCH (08:13)
[2022-07-28] MEDS: CYCLOBENZAPRINE HCL 10 MG TAB PO SCH ×3 (08:14→20:36)
[2022-07-28] MEDS: DICYCLOMINE HCL 10 MG CAP PO SCH (08:15)
[2022-07-28] MEDS: AMIODARONE HCL 200 MG TAB PO SCH (08:15)
[2022-07-28] MEDS: LOSARTAN POTASSIUM 25 MG TAB PO SCH (10:47)
[2022-07-28] MEDS ORDERED: HYDROCODONE/APAP 5MG-325MG TAB PO PRN (12:45)
[2022-07-28] MEDS: RIVAROXABAN 20 MG TABLET PO SCH (17:19)
[2022-07-28] MEDS: SERTRALINE HCL 100 MG TAB PO SCH (20:35)
[2022-07-28] MEDS: LEVOFLOXACIN 500MG/D5W 100ML 100 ML IV SCH (20:36)
[2022-07-28] MEDS: IRON SUCROSE 100 MG in SODIUM CHLORIDE 0.9% 100 ML IV SCH (21:28)
[2022-07-29] VITALS: BP 165/101
[2022-07-29] MEDS: METOCLOPRAMIDE HCL 10 MG/2ML VIAL IV SCH ×2 (02:21→05:17)
[2022-07-29 04:00] VITALS: BP 141/90
[2022-07-29] MEDS: SODIUM CHLORIDE 0.9% 1000ML 1,000 ML IV SCH ×2 (05:16→08:05)
[2022-07-29] MEDS: LEVOTHYROXINE SODIUM 100 MCG TAB PO SCH (05:17)
[2022-07-29 05:33] LABS: BASOPHILS # (AUTO) 0.1 (0.0-0.1); BASOPHILS % 0.7 % (0.0-1.0); EOSINOPHILS # (AUTO) 0.3 (0.0-0.4); EOSINOPHILS % 2.8 % (0.0-6.0); HEMATOCRIT 39.1 % (34.2-44.1); HEMOGLOBIN 11.3 g/dL (12.0-16.0); LYMPHOCYTES # (AUTO) 1.9 (1.0-3.2); LYMPHOCYTES % 20.7 % (18.0-39.1); MEAN CORPUSCULAR HEMOGLOBIN 24.8 pg (28-32); MEAN CORPUSCULAR HGB CONC 28.9 g/dL (31-35); MEAN CORPUSCULAR VOLUME 85.7 fL (81-99); MONOCYTES # (AUTO) 0.6 (0.2-0.8); MONOCYTES % 6.3 % (4.4-11.3); NEUTROPHILS # (AUTO) 6.2 (2.1-6.9); NEUTROPHILS % 69.1 % (38.7-80.0); PLATELET COUNT 340 x10e3/uL (140-360); RED BLOOD COUNT 4.56 x10e6/uL (3.6-5.1); RED CELL DISTRIBUTION WIDTH 21.9 % (11.7-14.4)
[2022-07-29 05:49] LABS: ANION GAP 11.6 mmol/L (8-16); CALCIUM 8.9 mg/dL (8.4-10.2); CREATININE, SERUM 0.77 mg/dL (0.57-1.11); POTASSIUM 3.6 mmol/L (3.5-5.1)
[2022-07-29 07:42] VITALS: BP 136/102
[2022-07-29 07:44] VITALS: BP 136/102
[2022-07-29] MEDS: SUCRALFATE 1 GM TAB PO SCH (08:00)
[2022-07-29] MEDS: CYCLOBENZAPRINE HCL 10 MG TAB PO SCH (08:01)
[2022-07-29] MEDS: FERROUS SULFATE 325 MG TAB PO SCH (08:01)
[2022-07-29] MEDS: DICYCLOMINE HCL 10 MG CAP PO SCH (08:02)
[2022-07-29] MEDS: AMIODARONE HCL 200 MG TAB PO SCH (08:02)
[2022-07-29] MEDS: LOSARTAN POTASSIUM 25 MG TAB PO SCH (08:02)
[2022-07-29] MEDS: METOPROLOL SUCCINATE 50 MG TAB XL PO SCH (08:03)
[2022-07-29] MEDS: DILTIAZEM HCL ER 120 MG CAP PO SCH (08:03)
[2022-07-29] MEDS ORDERED: CYCLOBENZAPRINE10 MG PO (10:40)
[2022-07-29] MEDS ORDERED: COZAAR25 MG PO (10:40)
[2022-07-29] MEDS ORDERED: LEVOFLOXACIN500 MG PO (10:40)
[2022-07-29 11:27] VITALS: BP 142/93
== END 2022-07-29 12:05 | disposition home or self-care (01) | DRG 392 ==
LOC: ER 16:39 → ERHOLD 18:10 → MED/SURG 20:40 → OBSVTOIN 07-28 08:19
PROVIDERS: ADMIT Internal Medicine; ATTEND Internal Medicine
DX: K31.84 Gastroparesis (principal); N39.0 Urinary tract infection, site not specified; M48.54XA Collapsed vertebra, not elsewhere classified, thoracic region, initial encounter for fracture; M48.56XA Collapsed vertebra, not elsewhere classified, lumbar region, initial encounter for fracture; I25.10 Atherosclerotic heart disease of native coronary artery without angina pectoris; D50.9 Iron deficiency anemia, unspecified; E78.2 Mixed hyperlipidemia; I48.0 Paroxysmal atrial fibrillation; E66.01 Morbid (severe) obesity due to excess calories; E03.9 Hypothyroidism, unspecified; I11.0 Hypertensive heart disease with heart failure; I50.9 Heart failure, unspecified; F41.9 Anxiety disorder, unspecified; K21.9 Gastro-esophageal reflux disease without esophagitis; F31.9 Bipolar disorder, unspecified; R33.9 Retention of urine, unspecified; B95.2 Enterococcus as the cause of diseases classified elsewhere; Z20.822 Contact with and (suspected) exposure to COVID-19; Z95.810 Presence of automatic (implantable) cardiac defibrillator; Z87.891 Personal history of nicotine dependence; Z88.0 Allergy status to penicillin; Z88.2 Allergy status to sulfonamides; Z95.5 Presence of coronary angioplasty implant and graft; Z68.35 Body mass index [BMI] 35.0-35.9, adult
CPT/HCPCS: 36415; 72128; 72131; 74470; 80048; 80053; 80307; 81001; 82607; 82746; 83540; 83690; 83735; 84132; 84439; 84443; 84466; 84484; 85025; 85045; 87086; 87186; 93005; 94799; 99284; G0378; J1756; J1956; J2270; J2405; J2765; J3475; J7030; J7050

== ENCOUNTER 2023-03-28 07:28 | Emergency (ER) | payer MEDICARE ==
[~2023-03-28] VITALS: Ht 162.6 cm; Wt 85.7 kg
[~2023-03-28 07:28] MED LIST changes: +COZAAR25 MG PO; +CYCLOBENZAPRINE10 MG PO; +LEVOFLOXACIN500 MG PO; +WELLBUTRIN SR100 MG PO
[2023-03-28] MEDS ORDERED: ONDANSETRON HCL INJ 2MG/ML 2ML 2 MG/ML VIAL IV STA (08:02)
[2023-03-28] MEDS ORDERED: Morphine 4mg INJECTION 4 MG/ML INJ IV STA (08:02)
[2023-03-28] MEDS ORDERED: SODIUM CHLORIDE 0.9% 1000ML 1,000 ML IV STA (08:02)
[2023-03-28 08:11] LABS: BASOPHILS # (AUTO) 0.1 (0.0-0.1); BASOPHILS % 0.6 % (0.0-1.0); EOSINOPHILS # (AUTO) 0.1 (0.0-0.4); EOSINOPHILS % 1.3 % (0.0-6.0); HEMATOCRIT 34.7 % (34.2-44.1); HEMOGLOBIN 10.7 g/dL (12.0-16.0); LYMPHOCYTES # (AUTO) 1.8 (1.0-3.2); LYMPHOCYTES % 17.1 % (18.0-39.1); MEAN CORPUSCULAR HEMOGLOBIN 26.1 pg (28-32); MEAN CORPUSCULAR HGB CONC 30.8 g/dL (31-35); MEAN CORPUSCULAR VOLUME 84.6 fL (81-99); MONOCYTES # (AUTO) 0.6 (0.2-0.8); MONOCYTES % 5.2 % (4.4-11.3); NEUTROPHILS % 75.4 % (38.7-80.0); PLATELET COUNT 420 x10e3/uL (140-360); RED CELL DISTRIBUTION WIDTH 15.4 % (11.7-14.4); WHITE BLOOD COUNT 10.56 x10e3/uL (4.8-10.8)
[2023-03-28 08:33] LABS: ALANINE AMINOTRANSFERASE 20 IU/L (0-55); ALBUMIN 3.6 g/dL (3.5-5.0); ALBUMIN/GLOBULIN RATIO 0.9 (0.8-2.0); ALKALINE PHOSPHATASE 123 IU/L (40-150); ANION GAP 11.8 mmol/L (8-16); BLOOD UREA NITROGEN 13 mg/dL (7-26); BUN/CREATININE RATIO 15 (6-25); CALCIUM 9.4 mg/dL (8.4-10.2); CARBON DIOXIDE 23 mmol/L (22-29); CHLORIDE 107 mmol/L (98-107); CREATINE KINASE 38 IU/L (29-168); CREATININE, SERUM 0.85 mg/dL (0.57-1.11); GLUCOSE 118 mg/dL (74-118); LIPASE 20 U/L (8-78); MAGNESIUM 1.8 MG/DL (1.3-2.1); POTASSIUM 3.8 mmol/L (3.5-5.1); SODIUM 138 mmol/L (136-145)
[2023-03-28 08:39] LABS: INR 0.97; PROTHROMBIN TIME 13.1 seconds (11.9-14.5)
[2023-03-28 08:40] LABS: PARTIAL THROMBOPLASTIN TIME 36.5 seconds (23.8-35.5)
[2023-03-28] MEDS ORDERED: IOPAMIDOL 370 MG/ML 100 ML INFUS..BTL INJ ONE (08:45)
[2023-03-28 10:46] VITALS: O2SAT 100
[2023-03-28] MEDS ORDERED: DICYCLOMINE HCL 20 MG/2 ML VIAL IM ONE (11:00)
== END 2023-03-28 11:29 | disposition home or self-care (01) ==
LOC: ER 07:34
DX: R11.2 Nausea with vomiting, unspecified (principal); R10.9 Unspecified abdominal pain; I10 Essential (primary) hypertension; I48.91 Unspecified atrial fibrillation; E03.9 Hypothyroidism, unspecified; B19.20 Unspecified viral hepatitis C without hepatic coma; I25.10 Atherosclerotic heart disease of native coronary artery without angina pectoris; K21.9 Gastro-esophageal reflux disease without esophagitis; Z95.810 Presence of automatic (implantable) cardiac defibrillator
CPT/HCPCS: 36415; 70450; 71045; 72125; 74177; 80053; 82550; 83690; 83735; 84484; 85025; 85610; 85730; 86850; 86900; 93005; 99284; C9113; J0500; J2270; J2405; J7030; Q9967